=== PATIENT | male | born 1955 | race Caucasian/White ===

== ENCOUNTER 2020-03-11 11:30 | Outpatient (REF) | payer OTHER, SELFPAY ==
[2020-03-11 13:44] LABS: MANUAL DIFF FLAG NO
[2020-03-11 13:47] LABS: Basophils Percent Auto 0.4 % (0-2); Eosinophils Absolute Auto 0.1 X10*3/uL (0.0-0.4); Eosinophils Percent Auto 1.8 % (0-4); Imm Gran Abs Auto 0.01 X10*3/uL (0.00-0.03); Imm Gran Pct Auto 0.2 % (0.0-0.4); Lymphocytes Absolute Auto 1.2 X10*3/uL (1.2-4.9); Mean Corpuscular HGB Conc 32.6 g/dl (31.0-36.0); Mean Corpuscular Hemoglobin 30.7 pg (27.0-33.0); Mean Corpuscular Volume 94.3 fL (80-98); Mean Platelet Volume 9.8 fL (9.4-12.4); Monocytes Absolute Auto 0.6 X10*3/uL (0.1-1.2); Monocytes Percent Auto 10.2 % (2-11); Neutrophils Absolute Auto 3.6 X10*3/uL (2.0-8.3); Neutrophils Percent Auto 65.4 % (45-73); Platelet Count 223 X10*3/uL (160-400); Red Blood Count 4.56 X10*6/uL (4.60-5.80); Red Cell Distribution Width 14.1 % (11.0-16.0); White Blood Count 5.5 X10*3/uL (4.8-10.8)
[2020-03-11 14:07] LABS: Alanine Aminotransferase 25 U/L (0-40); Albumin Level 4.1 g/dL (3.5-5.0); Alkaline Phosphatase 60 U/L (39-117); Aspartate Amino Transferase 21 U/L (5-37); Bilirubin Direct 0.3 mg/dL (0.0-0.5); Bilirubin Total 0.6 mg/dL (0.0-1.0); Lipase 11 U/L (8-78); Total Protein 7.6 g/dL (6.5-8.0)
== END 2020-03-11 11:31 | disposition home or self-care (01) ==
LOC: HO.10HDL 11:30
PROVIDERS: PCP Internal Medicine; Visit Provider Internal Medicine
DX: I48.91 Unspecified atrial fibrillation (principal); R10.9 Unspecified abdominal pain; I10 Essential (primary) hypertension
CPT/HCPCS: 36415; 80076; 83690; 85025; 86140

== ENCOUNTER 2020-09-23 13:26 | Outpatient (REF) | payer OTHER, SELFPAY ==
[2020-09-23 16:32] LABS: MANUAL DIFF FLAG NO
[2020-09-23 16:44] LABS: Basophils Percent Auto 0.2 % (0-2); Eosinophils Absolute Auto 0.1 X10*3/uL (0.0-0.4); Eosinophils Percent Auto 1.3 % (0-4); Hematocrit 46.1 % (42-52); Imm Gran Abs Auto 0.02 X10*3/uL (0.00-0.03); Imm Gran Pct Auto 0.3 % (0.0-0.4); Lymphocytes Absolute Auto 1.5 X10*3/uL (1.2-4.9); Lymphocytes Percent Auto 24.7 % (20-40); Mean Corpuscular HGB Conc 32.5 g/dl (31.0-36.0); Mean Corpuscular Hemoglobin 30.5 pg (27.0-33.0); Mean Corpuscular Volume 93.9 fL (80-98); Mean Platelet Volume 9.9 fL (9.4-12.4); Monocytes Absolute Auto 0.5 X10*3/uL (0.1-1.2); Monocytes Percent Auto 7.7 % (2-11); Neutrophils Absolute Auto 4.1 X10*3/uL (2.0-8.3); Neutrophils Percent Auto 65.8 % (45-73); Platelet Count 217 X10*3/uL (160-400); Red Blood Count 4.91 X10*6/uL (4.60-5.80); Red Cell Distribution Width 13.6 % (11.0-16.0); White Blood Count 6.2 X10*3/uL (4.8-10.8)
[2020-09-23 17:06] LABS: Alanine Aminotransferase 27 U/L (0-40); Albumin Level 4.3 g/dL (3.5-5.0); Alkaline Phosphatase 60 U/L (39-117); Anion Gap 15 (12-20); Aspartate Amino Transferase 25 U/L (5-37); Bilirubin Total 0.7 mg/dL (0.0-1.0); Blood Urea Nitrogen 13 mg/dL (9-16); Calcium 9.5 mg/dL (8.4-10.2); Carbon Dioxide 24 mmol/L (22-29); Chloride 106 mmol/L (96-108); Cholesterol 161 mg/dL; Estimated Glomerular Filt Rate > 60; Glucose Random 101 mg/dL (60-115); HDL Cholesterol 38 mg/dL; LDL Cholesterol Calculated 91 mg/dl; Potassium 4.4 mmol/L (3.3-5.1); Sodium 141 mmol/L (135-145); Triglycerides 163 mg/dL
[2020-09-23 17:27] LABS: Prostate Specific Antigen 1.87 ng/mL (<0.05-4.0)
== END 2020-09-23 13:27 | disposition home or self-care (01) ==
LOC: HO.HMGCLDS 13:26
PROVIDERS: PCP Internal Medicine; Visit Provider Internal Medicine
DX: Z12.5 Encounter for screening for malignant neoplasm of prostate (principal); I48.91 Unspecified atrial fibrillation; E78.00 Pure hypercholesterolemia, unspecified; I10 Essential (primary) hypertension; K21.9 Gastro-esophageal reflux disease without esophagitis; R97.20 Elevated prostate specific antigen [PSA]
CPT/HCPCS: 36415; 80053; 80061; 84153; 85025

== ENCOUNTER 2021-01-06 11:30 | Outpatient (REF) | payer OTHER, SELFPAY ==
[2021-01-06 13:44] LABS: MANUAL DIFF FLAG NO
[2021-01-06 13:54] LABS: Basophils Percent Auto 0.2 % (0-2); Eosinophils Absolute Auto 0.1 X10*3/uL (0.0-0.4); Eosinophils Percent Auto 1.6 % (0-4); Hematocrit 44.8 % (42-52); Hemoglobin 14.7 g/dl (14.0-18.0); Imm Gran Abs Auto 0.01 X10*3/uL (0.00-0.03); Imm Gran Pct Auto 0.2 % (0.0-0.4); Lymphocytes Absolute Auto 1.2 X10*3/uL (1.2-4.9); Lymphocytes Percent Auto 21.6 % (20-40); Mean Corpuscular HGB Conc 32.8 g/dl (31.0-36.0); Mean Corpuscular Hemoglobin 31.7 pg (27.0-33.0); Mean Corpuscular Volume 96.8 fL (80-98); Mean Platelet Volume 9.8 fL (9.4-12.4); Monocytes Absolute Auto 0.5 X10*3/uL (0.1-1.2); Monocytes Percent Auto 9.1 % (2-11); Neutrophils Absolute Auto 3.8 X10*3/uL (2.0-8.3); Neutrophils Percent Auto 67.3 % (45-73); Platelet Count 235 X10*3/uL (160-400); Red Blood Count 4.63 X10*6/uL (4.60-5.80); Red Cell Distribution Width 13.3 % (11.0-16.0); White Blood Count 5.6 X10*3/uL (4.8-10.8)
[2021-01-06 14:02] LABS: INTERNATIONAL NORM RATIO 2.5 (0.9-1.1); Prothrombin Time 29.2 SEC (9.9-13.0)
[2021-01-06 14:09] LABS: Anion Gap 11 (12-20); Blood Urea Nitrogen 13 mg/dL (9-16); C Reactive Protein 0.26 mg/dL (< or = 0.50); Calcium 8.9 mg/dL (8.4-10.2); Carbon Dioxide 26 mmol/L (22-29); Chloride 107 mmol/L (96-108); Estimated Glomerular Filt Rate > 60; Glucose Random 100 mg/dL (60-115); Potassium 4.2 mmol/L (3.3-5.1); Sodium 140 mmol/L (135-145)
[2021-01-06 14:10] LABS: D Dimer < 200 NG/ML
[2021-01-06 14:27] LABS: B Type Natriuretic Peptide 213 pg/mL (<100)
== END 2021-01-06 11:31 | disposition home or self-care (01) ==
LOC: HO.10HDL 11:30
PROVIDERS: Visit Provider Internal Medicine
DX: I48.91 Unspecified atrial fibrillation (principal); R06.02 Shortness of breath; K21.9 Gastro-esophageal reflux disease without esophagitis
CPT/HCPCS: 36415; 80048; 83880; 85025; 85379; 85610; 86140

== ENCOUNTER → 2021-02-10 12:37 | Outpatient (REF) | payer OTHER, SELFPAY ==
--- NOTE | 2021-02-10 12:43 | CA_ITS ---
Transthoracic Echocardiogram Patient (Last, First, Middle): Tawanda Perez J Gender: Male Date of : 1955 Age: 65 Procedure Date: 02/10/2021 Procedure Type: Transthoracic Echocardiogram Location: OP Height: 182.88 cm Weight: 140.62 kg BSA: 2.57 m2 Heart Rate: bpm BP: 145 / 90 mmHg Architect Naval: VH/CP Referring MD: Corona Starr MD Symptoms: SHORTNESS OF BREATH Study Quality: Fair/ Contrast used ECG Rhythm: Atrial Fibrillation Conclusions: - The left ventricular systolic function is mildly decreased. The calculated ejection fraction is 50% by biplane method. - Moderately increased right ventricular cavity size. - The left atrium is severely dilated. - No obvious valvular pathology seen on this study. Findings Procedure Information Contrast agent, definity, is being given per protocol without apparent complications. Left Ventricle Moderately increased left ventricular cavity size. There is mildly increased left ventricular wall thickness. The left ventricular systolic function is mildly decreased. The calculated ejection fraction is 50% by biplane method. Regional wall motion abnormalities can not be excluded due to suboptimal endocardial definition. Diastolic function is indeterminate on the basis of available data. Right Ventricle Moderately increased right ventricular cavity size. There is normal right ventricular systolic function. Atria The left atrium is severely dilated. The right atrium is moderately dilated. Aortic Valve The aortic valve was not well visualized. There is no aortic valve stenosis. The mean gradient is 3 mmHg. There is no aortic valve regurgitation. Mitral Valve There is mild mitral annular calcification. There is trace mitral valve regurgitation. There is no mitral valve stenosis. Pulmonic Valve The pulmonic valve was not well visualized. Tricuspid Valve The tricuspid valve was not well visualized. There is trace tricuspid valve regurgitation. The pulmonary artery systolic pressure is normal. Great Vessels The asc aorta is normal in size. Venous The inferior vena cava is dilated and collapses greater than 50% with inspiration. Pericardium/Pleural There is no evidence of pericardial effusion. Prior Study Comparison No significant change compared to prior study dated: 05/21/2011. Recommendations, Care & Conclusions No obvious valvular pathology seen on this study. Measurements 2D Linear Measurements IVSd: 1.18 0.6-0.9/0.6-1.0 cm LVIDd: 6.70 3.9-5.3/4.2-5.9 cm LVIDd Index: 2.61 2.4-3.2/2.2-3.1 cm/m2 LVIDs: 5.27 2.0-3.6 cm LVPWd: 1.14 0.7-1.1 cm Ao Root: 3.60 2.1-3.5 cm LA Diam: 5.90 2.7-3.8/3.0-4.0 cm LAIDs Index: 2.30 1.5-2.3 cm/m2 LV Mass: 450.43 67-162/88-224 g LV Mass Index: 175.27 43-95/49-115 g/m2 LVOT Diam: 2.20 3.0+(-)1.3 cm 2D Systolic Function EF 4C: 53.30 >55% EF 2C: 47.40 >55% EF BiP: 49.70 >55% Mitral Valve MV Pk E: 1.06 MV Decel Time: 179.00 PHT: 52.00 MVA PHT: 4.23 Decel [place]: 5.94 Aortic Valve AoV Pk Wesley: 1.29 AoV Mn Wesley: 0.82 AoV VTI: 0.27 AoV Pk Grad: 7.00 Aov Mn Grad: 3.00 DAMIEN Cont.VTI: 1.91 LVOT LVOT Pk Wesley: 0.78 LVOT Mn Wesley: 0.49 LVOT VTI: 0.13 LVOT Pk Grad: 2.00 LVOT Mn Grad: 1.00 LVOT Diam: 2.20 LVOT Area: 3.80 Diastolic Function MV Pk E: 1.06 Right Ventricle TAPSE (mm): 22.00 TVS' Wesley: 12.00 Tricuspid Valve TR Pk Wesley: 2.54 TR Pk Grad: 26.00 Great Vessels Aorta Ao Root-2D: 3.60 2.0-3.7 cm Ao Asc: 3.70 2.1-3.4 cm Updated in Other Vendor System with Status of Final Raul Penaloza MD electronically signed on 02/11/2021 12:21:47 PM with status of Final
== END ==
LOC: HO.CARD 12:37
PROVIDERS: Visit Provider Internal Medicine
DX: R06.02 Shortness of breath (principal); I48.20 Chronic atrial fibrillation, unspecified
CPT/HCPCS: 93306; Q9957

== ENCOUNTER 2021-04-28 11:00 | Outpatient (REF) | payer OTHER, SELFPAY ==
[2021-04-28 13:49] LABS: MANUAL DIFF FLAG NO
[2021-04-28 13:56] LABS: Basophils Percent Auto 0.3 % (0-2); Eosinophils Absolute Auto 0.1 X10*3/uL (0.0-0.4); Eosinophils Percent Auto 2.3 % (0-4); Hemoglobin 15.1 g/dl (14.0-18.0); Imm Gran Abs Auto 0.01 X10*3/uL (0.00-0.03); Imm Gran Pct Auto 0.2 % (0.0-0.4); Lymphocytes Absolute Auto 1.3 X10*3/uL (1.2-4.9); Mean Corpuscular HGB Conc 32.8 g/dl (31.0-36.0); Mean Corpuscular Hemoglobin 31.3 pg (27.0-33.0); Mean Corpuscular Volume 95.2 fL (80.0-98.0); Mean Platelet Volume 9.8 fL (9.4-12.4); Monocytes Absolute Auto 0.5 X10*3/uL (0.1-1.2); Monocytes Percent Auto 8.5 % (2-11); Neutrophils Absolute Auto 4.2 x10*3/uL (2.0-8.3); Neutrophils Percent Auto 67.7 % (45-73); Platelet Count 230 X10*3/uL (160-400); Red Blood Count 4.83 X10*6/uL (4.60-5.80); Red Cell Distribution Width 13.2 % (11.0-16.0); White Blood Count 6.1 X10*3/uL (4.8-10.8)
[2021-04-28 13:59] LABS: INTERNATIONAL NORM RATIO 2.7 (0.9-1.1); Prothrombin Time 30.8 SEC (9.9-13.0)
[2021-04-28 14:10] LABS: Alanine Aminotransferase 28 U/L (0-40); Albumin Level 3.9 g/dL (3.5-5.0); Alkaline Phosphatase 59 U/L (39-117); Anion Gap 11 (12-20); Aspartate Amino Transferase 24 U/L (5-37); Bilirubin Total 0.7 mg/dL (0.0-1.0); Blood Urea Nitrogen 14 mg/dL (9-16); Calcium 9.3 mg/dL (8.4-10.2); Carbon Dioxide 27 mmol/L (22-29); Chloride 105 mmol/L (96-108); Estimated Glomerular Filt Rate > 60; Glucose Random 107 mg/dL (60-115); Potassium 4.1 mmol/L (3.3-5.1); Sodium 139 mmol/L (135-145); Total Protein 7.6 g/dL (6.5-8.0)
== END 2021-04-28 11:01 | disposition home or self-care (01) ==
LOC: HO.10HDL 11:00
PROVIDERS: Visit Provider Internal Medicine
DX: I48.91 Unspecified atrial fibrillation (principal); I10 Essential (primary) hypertension; K21.9 Gastro-esophageal reflux disease without esophagitis; M19.90 Unspecified osteoarthritis, unspecified site
CPT/HCPCS: 36415; 80053; 85025; 85610

== ENCOUNTER 2021-07-28 10:49 | Outpatient (REF) | payer OTHER, SELFPAY ==
[2021-07-28 11:24] LABS: MANUAL DIFF FLAG NO
[2021-07-28 11:56] LABS: Basophils Percent Auto 0.5 % (0-2); Eosinophils Absolute Auto 0.1 X10*3/uL (0.0-0.4); Eosinophils Percent Auto 1.3 % (0-4); Hematocrit 44.6 % (42.0-52.0); Hemoglobin 14.7 g/dl (14.0-18.0); Imm Gran Abs Auto 0.06 X10*3/uL (0.00-0.03); Imm Gran Pct Auto 1.1 % (0.0-0.4); Lymphocytes Absolute Auto 1.1 X10*3/uL (1.2-4.9); Mean Corpuscular Hemoglobin 31.4 pg (27.0-33.0); Mean Corpuscular Volume 95.3 fL (80.0-98.0); Mean Platelet Volume 9.3 fL (9.4-12.4); Monocytes Absolute Auto 0.5 X10*3/uL (0.1-1.2); Monocytes Percent Auto 9.6 % (2-11); Neutrophils Absolute Auto 3.8 x10*3/uL (2.0-8.3); Neutrophils Percent Auto 68.5 % (45-73); Platelet Count 197 X10*3/uL (160-400); Red Blood Count 4.68 X10*6/uL (4.60-5.80); Red Cell Distribution Width 13.7 % (11.0-16.0); White Blood Count 5.5 X10*3/uL (4.8-10.8)
[2021-07-28 12:10] LABS: Rheumatoid Factor < 15.0 IU/mL (<15.0)
[2021-07-28 12:12] LABS: Alanine Aminotransferase 26 U/L (0-40); Alkaline Phosphatase 64 U/L (39-117); Anion Gap 10 (12-20); Aspartate Amino Transferase 20 U/L (5-37); Bilirubin Total 0.7 mg/dL (0.0-1.0); Blood Urea Nitrogen 21 mg/dL (9-16); C Reactive Protein 0.32 mg/dL (< or = 0.50); Calcium 9.6 mg/dL (8.4-10.2); Carbon Dioxide 28 mmol/L (22-29); Chloride 106 mmol/L (96-108); Estimated Glomerular Filt Rate > 60; Glucose Random 86 mg/dL (60-115); Potassium 4.4 mmol/L (3.3-5.1); Sodium 140 mmol/L (135-145); Total Protein 7.6 g/dL (6.5-8.0)
[2021-07-30 01:16] LABS: Lyme Abs Screen <0.90 index
[2021-07-30 11:30] LABS: Anti Nuclear Antibody Screen NEGATIVE (NEGATIVE)
== END 2021-07-28 10:50 | disposition home or self-care (01) ==
LOC: HO.LAB 10:49
PROVIDERS: PCP Internal Medicine; Visit Provider Internal Medicine
DX: I48.91 Unspecified atrial fibrillation (principal); I10 Essential (primary) hypertension; M25.50 Pain in unspecified joint
CPT/HCPCS: 36415; 80053; 85025; 86038; 86039; 86140; 86431; 86617; 86618

== ENCOUNTER 2021-11-05 10:50 | Outpatient (REF) | payer OTHER, SELFPAY ==
[2021-11-05 13:49] LABS: MANUAL DIFF FLAG NO
[2021-11-05 13:53] LABS: Basophils Percent Auto 0.4 % (0-2); Eosinophils Absolute Auto 0.1 X10*3/uL (0.0-0.4); Eosinophils Percent Auto 1.8 % (0-4); Hematocrit 44.7 % (42.0-52.0); Hemoglobin 15.1 g/dl (14.0-18.0); Imm Gran Abs Auto 0.01 X10*3/uL (0.00-0.03); Imm Gran Pct Auto 0.1 % (0.0-0.4); Lymphocytes Absolute Auto 1.4 X10*3/uL (1.2-4.9); Lymphocytes Percent Auto 19.3 % (20-40); Mean Corpuscular HGB Conc 33.8 g/dl (31.0-36.0); Mean Corpuscular Hemoglobin 31.9 pg (27.0-33.0); Mean Corpuscular Volume 94.5 fL (80.0-98.0); Mean Platelet Volume 9.5 fL (9.4-12.4); Monocytes Absolute Auto 0.6 X10*3/uL (0.1-1.2); Monocytes Percent Auto 8.3 % (2-11); Neutrophils Percent Auto 70.1 % (45-73); Platelet Count 211 X10*3/uL (160-400); Red Blood Count 4.73 X10*6/uL (4.60-5.80); Red Cell Distribution Width 13.3 % (11.0-16.0); White Blood Count 7.2 X10*3/uL (4.8-10.8)
[2021-11-05 13:57] LABS: INTERNATIONAL NORM RATIO 2.4 (0.9-1.1); Prothrombin Time 28.5 SEC (10.0-13.1)
[2021-11-05 14:09] LABS: Alanine Aminotransferase 34 U/L (0-40); Albumin Level 4.2 g/dL (3.5-5.0); Alkaline Phosphatase 57 U/L (39-117); Anion Gap 14 (12-20); Aspartate Amino Transferase 27 U/L (5-37); Bilirubin Total 0.9 mg/dL (0.0-1.0); Blood Urea Nitrogen 16 mg/dL (9-16); Calcium 9.1 mg/dL (8.4-10.2); Carbon Dioxide 25 mmol/L (22-29); Chloride 104 mmol/L (96-108); Cholesterol 161 mg/dL; Estimated Glomerular Filt Rate > 60; Glucose Fasting 97 mg/dL (60-99); HDL Cholesterol 38 mg/dL; LDL Cholesterol Calculated 97 mg/dl; Lipase 12 U/L (8-78); Potassium 4.2 mmol/L (3.3-5.1); Sodium 139 mmol/L (135-145); Total Protein 7.9 g/dL (6.5-8.0); Triglycerides 132 mg/dL
[2021-11-05 14:23] LABS: Prostate Specific Antigen Scr 1.03 ng/mL (<0.05-4.0)
== END 2021-11-05 10:51 | disposition home or self-care (01) ==
LOC: HO.10HDL 10:50
PROVIDERS: Visit Provider Internal Medicine
DX: Z12.5 Encounter for screening for malignant neoplasm of prostate (principal); I48.91 Unspecified atrial fibrillation; I10 Essential (primary) hypertension; K21.9 Gastro-esophageal reflux disease without esophagitis; E78.00 Pure hypercholesterolemia, unspecified; R35.1 Nocturia; M19.90 Unspecified osteoarthritis, unspecified site
CPT/HCPCS: 36415; 80053; 80061; 83690; 84153; 85025; 85610

== ENCOUNTER 2021-12-07 11:01 | Outpatient (REF) | payer OTHER, SELFPAY ==
--- NOTE | ~2021-12-07 | CT_ITS ---
EXAMINATION: CT HEAD WITHOUT CONTRAST CLINICAL INFORMATION: Unsteady gait. COMPARISON: None. TECHNIQUE: Contiguous axial imaging was performed from the skull base to vertex without intravenous administration of contrast. This CT examination was performed using dose optimization techniques as appropriate, variously including the following: *Automated exposure control *Adjustment of mA and/or kV according to patient size (this includes techniques or standardized protocols for targeted exams where dose is matched to indication/reason for exam; i.e. extremities or head) *Use of iterative reconstruction technique DLP: 1092 mGy-cm. FINDINGS: There is no evidence of acute intracranial hemorrhage or territorial infarction. No abnormal mass effect or midline shift is seen. Castano to white matter differentiation is well preserved. No extra-axial fluid collections are identified. The ventricles are normal in size. Mild patchy areas of low-density change noted in the cerebral white matter which may be due to chronic microangiopathy. The osseous structures and soft tissues are normal. The mastoid air cells are well aerated. There are retention cysts in the maxillary sinus cavities with scattered retention cysts versus polyps in the sphenoethmoid sinuses. Associated mild mucosal thickening also evident in the paranasal sinuses. There are severe degenerative changes at the odontoid tip with sclerosis and cystic change. Hypertrophic bone formation and ossific spurring also noted along the anterior arch of C1 with narrowing of the atlantodental interval. CT/CT head/brain wo IV con IMPRESSION: No acute intracranial hemorrhage or territorial infarction. Mild chronic white matter microangiopathy. Sinonasal mucosal thickening with small retention cysts and polyps.
== END 2021-12-07 11:02 | disposition home or self-care (01) ==
LOC: HO.CT 11:01
PROVIDERS: PCP Internal Medicine; Visit Provider Internal Medicine
DX: R26.9 Unspecified abnormalities of gait and mobility (principal); I48.20 Chronic atrial fibrillation, unspecified
CPT/HCPCS: 70450

== ENCOUNTER 2022-05-25 08:31 | Day surgery (SDC) | payer OTHER, SELFPAY ==
--- NOTE | 2022-05-24 10:37 | HO.ANESPROP2 ---
Documented by User: Reyna Peña NP 05/24/22 10:38 HPI - Anesthesia Eval Consult details Narrative: 66yo M for Upper Endoscopy and Colonoscopy Coumadin for afib. Lovenox bridge [facility] Past Medical History Medical History (Updated 05/24/22 @ 08:47 by Elinor Roberts, RN) Arrhythmia Back pain History of hyperlipidemia HTN (hypertension) Hx of atrial fibrillation without current medication Hx of osteoarthritis Left hip pain Nocturia Surgical History Surgical History (Updated 05/24/22 @ 08:47 by Elinor Roberts RN) History of hip surgery Hx of colonoscopy Hx of laminectomy Social History Social History Patient Tobacco Use Status: Former Tobacco user Cigarette Packs Per Day: 1 Cigarettes Per Day: 20.0 Years Smoked: 34 Substance Use Frequency: Weekly Are you DNR?: No Advance Directives: No Advance Directives Information Provided: Yes Meds Allergies Allergy/AdvReac Type Severity Reaction Status Date / Time aspirin [ASPIRIN] AdvReac Unknown PT STATES Unverified 11/29/19 14:36 HE CAN'T TAKE BECAUSE HE IS ON COUMADIN lisinopril [LISINOPRIL] AdvReac Unknown COUGH Unverified 11/29/19 14:36 NSAIDS (Non-Steroidal AdvReac Unknown PT STATES Unverified 11/29/19 14:36 Anti-Inflamma HE CAN'T [NSAIDS (NON-STEROIDAL TAKE ANTI-INFLAMMA] BECAUSE HE IS ON COUMADIN can't take ASA or NSAIDS Allergy Unknown Uncoded 01/12/12 00:00 sensitive to lipitor Allergy Unknown Uncoded 01/12/12 00:00 sensitive to lisinopril Allergy Unknown Uncoded 01/12/12 00:00 From LIPITOR AdvReac Unknown ELEVATED Uncoded 11/29/19 14:36 LFT'S, MUSCLE PAIN Home Medications Medication Instructions Recorded Confirmed Last Taken Type clonidine HCl 0.1 mg tablet 2 tab PO BID 05/24/22 05/24/22 Unknown History enoxaparin 150 mg/mL subcutaneous mg subcut 05/24/22 Unknown History syringe irbesartan 300 mg tablet 1 tab PO DAILY 05/24/22 05/24/22 Unknown History pantoprazole 40 mg tablet,delayed 1 tab PO BID 05/24/22 05/24/22 Unknown History release pravastatin 80 mg tablet 1 tab PO DAILY 05/24/22 05/24/22 Unknown History warfarin 5 mg tablet tab PO 05/24/22 Unknown History Exam Exam Date and Time: May 24, 2022 1037 Pertinent Lab Results Pertinent Lab Results: Laboratory Tests 11/05/21 11/05/21 11:00 11:00 WBC 7.2 Hgb 15.1 Hct 44.7 Plt Count 211 Sodium 139 Potassium 4.2 Chloride 104 Carbon Dioxide 25 BUN 16 Creatinine 1.04 Narrative Narrative: ECHO 2020 Conclusions: - The left ventricular systolic function is mildly decreased.? ? The calculated ejection fraction is 50% by biplane method. ? ? ? - Moderately increased right ventricular cavity size.? - The left atrium is severely dilated. ? - No obvious valvular pathology seen on this study.?? Assessment and Plan Assessment Anesthesia Assessment: Chart Reviewed Documented by User: Himanshu Mckeon MD 05/25/22 11:31 PMF Past Medical History Medical History (Updated 05/24/22 @ 08:47 by Elinor Roberts RN) Arrhythmia Back pain History of hyperlipidemia HTN (hypertension) Hx of atrial fibrillation without current medication Hx of osteoarthritis Left hip pain Nocturia Family History Family history of problems with anesthesia: No Surgical History Surgical History (Updated 05/24/22 @ 08:47 by Elinor Roberts RN) History of hip surgery Hx of colonoscopy Hx of laminectomy History of Problems with Anesthesia: No Social History Social History Patient Tobacco Use Status: Former Tobacco user Cigarette Packs Per Day: 1 Cigarettes Per Day: 20.0 Years Smoked: 34 Substance Use Frequency: Weekly Are you DNR?: No Advance Directives: No Advance Directives Information Provided: Yes Meds Allergies Allergy/AdvReac Type Severity Reaction Status Date / Time aspirin [ASPIRIN] AdvReac Unknown PT STATES Unverified 11/29/19 14:36 HE CAN'T TAKE BECAUSE HE IS ON COUMADIN lisinopril [LISINOPRIL] AdvReac Unknown COUGH Unverified 11/29/19 14:36 NSAIDS (Non-Steroidal AdvReac Unknown PT STATES Unverified 11/29/19 14:36 Anti-Inflamma HE CAN'T [NSAIDS (NON-STEROIDAL TAKE ANTI-INFLAMMA] BECAUSE HE IS ON COUMADIN can't take ASA or NSAIDS Allergy Unknown Uncoded 01/12/12 00:00 sensitive to lipitor Allergy Unknown Uncoded 01/12/12 00:00 sensitive to lisinopril Allergy Unknown Uncoded 01/12/12 00:00 From LIPITOR AdvReac Unknown ELEVATED Uncoded 11/29/19 14:36 LFT'S, MUSCLE PAIN Home Medications Medication Instructions Recorded Confirmed Last Taken Type clonidine HCl 0.1 mg tablet 2 tab PO BID 05/24/22 05/24/22 Unknown History enoxaparin 150 mg/mL subcutaneous mg subcut 05/24/22 Unknown History syringe irbesartan 300 mg tablet 1 tab PO DAILY 05/24/22 05/24/22 Unknown History pantoprazole 40 mg tablet,delayed 1 tab PO BID 05/24/22 05/24/22 Unknown History release pravastatin 80 mg tablet 1 tab PO DAILY 05/24/22 05/24/22 Unknown History warfarin 5 mg tablet tab PO 05/24/22 Unknown History Exam Airway Mallampati Class: II TM Dist: >3cm Neck ROM: Limited Loose/Missing/Broken Teeth: No Heart: ok Lungs: ok Assessment and Plan Assessment Anesthesia Assessment: Anesthesia Plan Discussed Final Anesthetic Review Family History of Problems with Anesthesia: No History of Problems with Anesthesia: No NPO: Yes ASA Class: IV Final Preanesthetic Review: No Changes in Pt Med Stat, Meds/Allgs Chart Reviewed, Consent Obtained/Reviewed and Anes Risks/Benef Reviewed Patient Risk: High Procedure Risk: Intermediate Anesthetic Plan Anesthetic Plan: MAC: and Agree w/ Assess. and Plan Disposition: Standard PACU
[2022-05-25 09:39] LABS: INTERNATIONAL NORM RATIO 1.2 (0.9-1.1); Prothrombin Time 13.5 SEC (10.0-13.1)
[2022-05-25 09:40] VITALS: BMI 42.3
[2022-05-25 09:45] VITALS: BP 147/99; PULSE 96; RESP 18; TEMP 36.6; O2SAT 97
[2022-05-25] MEDS: Lactated Ringers 1,000 ML 100 ML IVCONT (09:52)
--- NOTE | 2022-05-25 10:38 | P.HPSUR_ITS ---
Pre-Procedural Eval Section A Date of Service: 05/25/22 Section B Chief Complaint: screening,reflux Details of Present Illness: see H&P no changes Relevant Family History (Specify if Yes): No Relevant Social History: None Present Medications: see Short Stay [facility] assessment Medical History: No relevant PMH History of Previous Operations: No relevant previous surgery Allergies: Allergies Allergy/AdvReac Type Severity Reaction Status Date / Time aspirin [ASPIRIN] AdvReac Unknown PT STATES Unverified 11/29/19 14:36 HE CAN'T TAKE BECAUSE HE IS ON COUMADIN lisinopril [LISINOPRIL] AdvReac Unknown COUGH Unverified 11/29/19 14:36 NSAIDS (Non-Steroidal AdvReac Unknown PT STATES Unverified 11/29/19 14:36 Anti-Inflamma HE CAN'T [NSAIDS (NON-STEROIDAL TAKE ANTI-INFLAMMA] BECAUSE HE IS ON COUMADIN can't take ASA or NSAIDS Allergy Unknown Uncoded 01/12/12 00:00 sensitive to lipitor Allergy Unknown Uncoded 01/12/12 00:00 sensitive to lisinopril Allergy Unknown Uncoded 01/12/12 00:00 From LIPITOR AdvReac Unknown ELEVATED Uncoded 11/29/19 14:36 LFT'S, MUSCLE PAIN Review of Systems Sugical H&P ROS: Negative: Constitution, Cardiovascular, Respiratory, Neurological, Psychiatric, Hem-Onc, Allergic/Immunologic, Gastrointestinal, Genitourinary, Musculoskeletal, Integumentary, Endocrine and Eyes/Ears/Nose/Throat Exam Surgical H&P Exam: Normal: HEENT, Normal: Heart, Normal: Lungs, Normal: Extremities, Normal: Abdomen, Normal: Skin and Normal: Neurological Plan I have reviewed the history and physical and performed a pertinent physical examination on my patient. No changes have occurred unless specified. Time Spent With Patient Time: Total time managing care of this patient today ____ minutes.
--- NOTE | 2022-05-25 11:29 | P.BOP_ITS ---
Brief Operative Note Date of Service: 05/25/22 Pre-op diagnosis: gerd screening Post-op diagnosis: same Procedure: egd colonoscopy Surgeon: Miguelito Banuelos Anesthesia: MAC Was an Mental Health Social Worker used for this Procedure?: No Estimated blood loss (mL): 5 Pathology: other Condition: stable Disposition: PACU
[2022-05-25 11:32] VITALS: BP 131/79; PULSE 93; RESP 24; TEMP 37.6; O2SAT 92
[2022-05-25 11:47] VITALS: BP 114/75; PULSE 83; RESP 22; TEMP 37.3; O2SAT 95
--- NOTE | 2022-05-25 22:08 | OP_ITS ---
SURGEON: Miguelito Banuelos MD INDICATIONS: 1. Gastroesophageal reflux disease. 2. Colon cancer screening. PREOPERATIVE DIAGNOSIS: POSTOPERATIVE DIAGNOSIS: PROCEDURE PERFORMED: Upper endoscopy with biopsy, colonoscopy to the terminal ileum with biopsy. ESTIMATED BLOOD LOSS: COMPLICATIONS: ANESTHESIA: Monitored anesthesia care. ASSISTANTS: SPECIMENS: PROCEDURE DESCRIPTION: Date: 05/25/22. A history and physical performed. The risks and benefits of procedure were explained to the patient. Informed consent was obtained. The patient was placed in the left lateral decubitus position. The Olympus video gastroscope was introduced into the esophagus, stomach, and duodenum. Examination was performed. The scope was removed. He was repositioned for colonoscopy. A digital rectal exam was performed and was found to be normal. The Olympus pediatric videocolonoscope was introduced into the rectum and advanced to the cecum without difficulty. The cecum was identified by transillumination, palpation, and identification of ileocecal valve. Examination was performed. The scope was removed. He tolerated both procedures well, was returned to recovery area in stable condition. FINDINGS: Upper endoscopy: Esophagus: The esophagus showed an irregular EG junction. There was no esophagitis. This was biopsied. Stomach: The stomach showed no evidence of masses or ulcers. Antral biopsies were obtained. There were multiple benign-appearing polyps in the body and fundus consistent with fundic gland polyps. Two of these were biopsied. Duodenum: The bulb and 2nd portion were normal. Colonoscopy: The terminal ileum was examined briefly and appeared normal. The visualized colonic mucosa was normal. The quality of the prep was fair with some retained formed stool in the sigmoid and some liquid stool coating the mucosa in the right colon and transverse colon. This was washed and suctioned. There was extensive diverticulosis of the sigmoid with scattered diverticulitis throughout the remainder of the colon. A single polyp in the rectum measuring less than 5 mm was removed with biopsy forceps. Retroflexed examination showed small internal hemorrhoids. IMPRESSION: 1. Gastroesophageal reflux disease. 2. Gastric polyps. 3. Colon polyp. RECOMMENDATIONS: Follow up biopsy results. MD MICHELINE Nielsen/RODRI / [id number]
== END 2022-05-25 12:27 | disposition home or self-care (01) ==
PROVIDERS: Nurse Practitioner; PCP Internal Medicine; Visit Provider Internal Medicine Gastroenterology
PROC: (CPT 45380; principal; 2022-05-25 10:20)
DX: Z12.11 Encounter for screening for malignant neoplasm of colon (principal); Z86.010 Personal history of colon polyps; D12.8 Benign neoplasm of rectum; K57.30 Diverticulosis of large intestine without perforation or abscess without bleeding; K64.8 Other hemorrhoids; K21.9 Gastro-esophageal reflux disease without esophagitis; K31.7 Polyp of stomach and duodenum; I10 Essential (primary) hypertension; I48.91 Unspecified atrial fibrillation; E78.00 Pure hypercholesterolemia, unspecified; Z68.42 Body mass index [BMI] 45.0-49.9, adult; R63.5 Abnormal weight gain; R35.1 Nocturia; Z79.01 Long term (current) use of anticoagulants; Z79.899 Other long term (current) drug therapy; Z88.8 Allergy status to other drugs, medicaments and biological substances
CPT/HCPCS: 45380; 43239; 36415; 85610; 88305; 88342; J3010

== ENCOUNTER 2022-07-16 11:13 | Outpatient (REF) | payer MEDICARE, SELFPAY ==
--- NOTE | ~2022-07-16 | XR_ITS ---
EXAMINATION: XR CHEST CLINICAL INFORMATION: Cough COMPARISON: Previous chest x-ray most recent January 2019 TECHNIQUE: 2 views of the chest were obtained. FINDINGS: The cardiac silhouette is enlarged but stable. Hilar and mediastinal contours are unremarkable. There is subsegmental atelectasis at the left lung base. The lungs are otherwise clear. No pleural effusion or pneumothorax. Degenerative changes of the spine. XR/XR chest 2V IMPRESSION: Stable enlargement of the cardiac silhouette. Subsegmental atelectasis at the left lung base.
[2022-07-16 11:25] LABS: MANUAL DIFF FLAG NO
[2022-07-16 11:54] LABS: Basophils Percent Auto 0.5 % (0-2); Eosinophils Absolute Auto 0.2 X10*3/uL (0.0-0.4); Eosinophils Percent Auto 2.1 % (0-4); Hematocrit 44.1 % (42.0-52.0); Hemoglobin 14.5 g/dl (14.0-18.0); Imm Gran Abs Auto 0.02 X10*3/uL (0.00-0.03); Imm Gran Pct Auto 0.3 % (0.0-0.4); Lymphocytes Absolute Auto 1.5 X10*3/uL (1.2-4.9); Mean Corpuscular HGB Conc 32.9 g/dl (31.0-36.0); Mean Corpuscular Hemoglobin 31.8 pg (27.0-33.0); Mean Corpuscular Volume 96.7 fL (80.0-98.0); Mean Platelet Volume 9.1 fL (9.4-12.4); Monocytes Absolute Auto 0.7 X10*3/uL (0.1-1.2); Monocytes Percent Auto 8.6 % (2-11); Neutrophils Absolute Auto 5.2 x10*3/uL (2.0-8.3); Neutrophils Percent Auto 68.5 % (45-73); Platelet Count 235 X10*3/uL (160-400); Red Blood Count 4.56 X10*6/uL (4.60-5.80); Red Cell Distribution Width 13.6 % (11.0-16.0); White Blood Count 7.7 X10*3/uL (4.8-10.8)
[2022-07-16 12:19] LABS: Influenza A PCR NEGATIVE (Negative); Influenza B PCR NEGATIVE (Negative); Resp Syncy Virus RNA Qual PCR NEGATIVE (Negative); SARS COV2 PCR INHOUSE NEGATIVE (Negative)
[2022-07-16 12:20] LABS: B Type Natriuretic Peptide 138 pg/mL (<100)
[2022-07-16 12:47] LABS: Alanine Aminotransferase 35 U/L (0-40); Albumin Level 4.1 g/dL (3.5-5.0); Alkaline Phosphatase 59 U/L (39-117); Anion Gap 15 (12-20); Aspartate Amino Transferase 28 U/L (5-37); Bilirubin Total 0.7 mg/dL (0.0-1.0); Blood Urea Nitrogen 18 mg/dL (9-16); Calcium 9.2 mg/dL (8.4-10.2); Carbon Dioxide 25 mmol/L (22-29); Chloride 106 mmol/L (96-108); Estimated Glomerular Filt Rate 55; Glucose Random 101 mg/dL (60-115); Potassium 5.2 mmol/L (3.3-5.1); Sodium 141 mmol/L (135-145); Total Protein 7.6 g/dL (6.5-8.0)
== END 2022-07-16 11:14 | disposition home or self-care (01) ==
LOC: HO.LAB 11:13
PROVIDERS: PCP Internal Medicine; Visit Provider Internal Medicine
DX: R05.9 Cough, unspecified (principal); R09.89 Other specified symptoms and signs involving the circulatory and respiratory systems; Z20.822 Contact with and (suspected) exposure to COVID-19
CPT/HCPCS: 0241U; 36415; 71046; 80053; 83880; 85025

== ENCOUNTER 2022-09-20 09:12 | Outpatient (AMB) | payer MEDICARE, SELFPAY ==
--- NOTE | 2022-09-20 09:14 | MHC.OFFVIS ---
Intake Vital Signs 09/20/22 09:22 Height 6 ft Weight 355 lb BMI 48.1 BP 143/77 H Blood Pressure Location Rt brachial Position Sitting Pulse 93 Intake Visit Reasons: Hemorrhoids Allergies aspirin [ASPIRIN] Adverse Reaction (Unknown, Unverified 09/20/22 09:24) PT STATES HE CAN'T TAKE BECAUSE HE IS ON COUMADIN lisinopril [LISINOPRIL] Adverse Reaction (Unknown, Unverified 09/20/22 09:24) COUGH NSAIDS (Non-Steroidal Anti-Inflamma [NSAIDS (NON-STEROIDAL ANTI-INFLAMMA] Adverse Reaction (Unknown, Unverified 09/20/22 09:24) PT STATES HE CAN'T TAKE BECAUSE HE IS ON COUMADIN can't take ASA or NSAIDS Allergy (Unknown, Uncoded 09/20/22:) Unknown sensitive to lipitor Allergy (Unknown, Uncoded 09/20/22:24) Unknown sensitive to lisinopril Allergy (Unknown, Uncoded 09/20/22:) Unknown From LIPITOR Adverse Reaction (Unknown, Uncoded 09/20/22:) ELEVATED LFT'S, MUSCLE PAIN Medication List - Last Reconciled 09/20/[address] MD clonidine HCl 2 tabs PO BID enoxaparin mg subcut irbesartan 1 tab PO DAILY pantoprazole 1 tab PO BID pravastatin 1 tab PO DAILY warfarin tabs PO HPI Hemorrhoids HPI Details 67-year-old male referred for bleeding hemorrhoids. He says that he has known hemorrhoids for so most of his life. He says that he has occasional passage of bright blood per rectum with this. However, for the past few months, he has noticed this seems to be little more frequent. He says that he notices on the toilet bowl as well as on wiping. He does state that this does not happen every day. He says that this may not happen for several days but occasionally this may be heavy. He denies any pain or swelling. He says he does get constipated occasionally He does have a history of atrial fibrillation and is currently on anticoagulation with Coumadin. He says that he gets short of breath surgically because of his atrial fibrillation. [facility] Medical History (Updated 09/20/22 @ 10:[address] MD) Arrhythmia Back pain Bleeding hemorrhoids History of hyperlipidemia HTN (hypertension) Hx of atrial fibrillation without current medication Hx of osteoarthritis Left hip pain Nocturia Surgical History History of hip surgery Hx of colonoscopy Hx of laminectomy Social History Patient Tobacco Use Status: Former Tobacco user Cigarette Packs Per Day: 1 Cigarettes Per Day: 20.0 Years Smoked: 34 Review of Systems Const Denies chills and Denies fever(s) Card Denies chest pain, Denies dyspnea and Reports dyspnea on exertion Resp Denies cough, Denies dyspnea and Reports dyspnea on exertion GI Reports hematochezia and Denies change in bowel habits Denies hematuria and Denies difficulty urinating Musc Denies back pain and Denies limited range of motion Neuro Denies focal weakness and Denies convulsions Psych Denies depression and Denies mood swings Physical Exam Vital Signs: Last Vital Signs Pulse 93 09/20/22 09:22 BP 143/77 H 09/20/22 09:22 BMI result Body Mass Index 48.1 Const Other: Appears morbidly obese General: comfortable and no acute distress Orientation/consciousness: patient oriented x3 Neck Neck: Yes no lymphadenopathy Resp Auscultation: clear to auscultation bilaterally Cardio Other: Irregular rhythm GI Other: Rectal exam shows moderate size external hemorrhoids, left and the right no bleeding at this time, anoscopy as described Palpation (GI): Soft to palpation, nontender and no guarding Neuro General: patient oriented x3 Office Procedures Anoscopy He was placed in vna-knife position. The anoscope was gently inserted. A full examination of the anal canal was done. There was note of moderate-sized hemorrhoidal columns, mix of internal external on both the left and right side, there was no active bleeding, no thrombosis. There were no fissures or induration on digital exam [id number] Assessment & Plan Assessment & Plan (1) Bleeding hemorrhoids: Code(s): K64.9 - Unspecified hemorrhoids Plan: He has multiple hemorrhoidal columns, mix of internal external with periodic bleeding. He is on anticoagulation for his fibrillation so this is contributory to the bleeding. I did explain to him the option of proceeding with surgery. I discussed with him the risks including but not limited to bleeding, infections, poor healing, postop pain, perioperative risks with the anesthesia including [place], as well as the benefits and alternatives He would like to hold off on surgery at this point especially as he does have multiple cardiac issues. I will send him for a steroid suppositories for now and I will see him again in the office in about a month to see how is doing. He was advised on avoiding straining and constipation. I did explain to him the benefit of fiber supplementation. Coding Level of Care Code New Pt Level 3 (12856) Diagnoses Bleeding hemorrhoids K64.9 CPT Codes Details - CPT: 63721-[id number] ([id number])
[2022-09-20 09:22] VITALS: BP 143/77; PULSE 93; BMI 48.1
== END 2022-09-20 10:12 | disposition home or self-care (01) ==
PROVIDERS: PCP Internal Medicine; Referring Provider Internal Medicine; Visit Provider Surgery
DX: K64.9 Unspecified hemorrhoids (principal)
CPT/HCPCS: 46600; 99203

== ENCOUNTER → 2022-09-20 09:12 | Outpatient (BNVA) | payer MEDICARE, SELFPAY | PROVIDERS: PCP Internal Medicine; Referring Provider Internal Medicine; Visit Provider Surgery | DX: K64.9 Unspecified hemorrhoids (principal); I48.91 Unspecified atrial fibrillation; Z79.01 Long term (current) use of anticoagulants | CPT/HCPCS: 46600; 99202 ==

== ENCOUNTER → 2022-09-23 14:49 | Outpatient (REF) | payer MEDICARE, SELFPAY ==
--- NOTE | 2022-09-23 14:51 | CA_ITS ---
Transthoracic Echocardiogram Patient (Last, First, Middle): Tawanda Perez J Gender: Male Date of : 1955 Age: 67 Procedure Date: 09/23/2022 Procedure Type: Transthoracic Echocardiogram Location: OP Height: 182.88 cm Weight: 147.42 kg BSA: 2.62 m2 Heart Rate: bpm BP: 150 / 98 mmHg Regional Safety Manager: JOY Referring MD: Corona Starr MD Projector Operator: Cipriano Nicole MD Symptoms: I48.91 UNSPEC AFIB Study Quality: Fair, contrast ECG Rhythm: Atrial Fibrillation Conclusions: - 1. Low normal LV ejection fraction with LVEF of 50-55% 2. Severely dilated left atrium 3. Cardiac valvular Dopplers within normal limits 4. Mildly dilated ascending aorta at 3.9 cm 5. Normal RV systolic pressure 6. No pericardial effusion Findings Procedure Information Contrast agent, definity, is being given per protocol without apparent complications. Left Ventricle Moderately increased left ventricular cavity size. There is normal left ventricular wall thickness. The left ventricular systolic function is low normal. The visually estimated ejection fraction is between 50-55%. Diastolic function is indeterminate on the basis of available data. Right Ventricle The right ventricle was not well visualized. Atria The left atrium is severely dilated. Interatrial shunt cannot be excluded. The right atrium was not well visualized. Aortic Valve Normal aortic valve structure and function. There is no aortic valve stenosis. There is no aortic valve regurgitation. Mitral Valve There is mild anterior mitral leaflet thickening. There is mild mitral annular calcification. There is trace mitral valve regurgitation. There is no mitral valve stenosis. Pulmonic Valve The pulmonic valve was not well visualized. Tricuspid Valve Normal tricuspid valve structure. There is mild tricuspid valve regurgitation. There is no evidence of pulmonary hypertension. Great Vessels There is mild dilatation of the ascending aorta measuring 3.90 cm. Venous The inferior vena cava is normal in size and collapses greater than 50% with inspiration. Pericardium/Pleural There is no evidence of pericardial effusion. Prior Study Comparison No significant change compared to prior study dated: 02/10/2021. Measurements 2D Linear Measurements IVSd: 1.16 0.6-0.9/0.6-1.0 cm LVIDd: 6.76 3.9-5.3/4.2-5.9 cm LVIDd Index: 2.58 2.4-3.2/2.2-3.1 cm/m2 LVIDs: 5.47 2.0-3.6 cm LVPWd: 1.15 0.7-1.1 cm LA Diam: 5.70 2.7-3.8/3.0-4.0 cm LAIDs Index: 2.18 1.5-2.3 cm/m2 LV Mass: 454.72 67-162/88-224 g LV Mass Index: 173.56 43-95/49-115 g/m2 LVOT Diam: 2.20 3.0+(-)1.3 cm 2D Systolic Function EF 4C: 49.40 >55% EF 2C: 52.00 >55% EF BiP: 50.10 >55% Mitral Valve MV Pk E: 1.07 MV Decel Time: 159.00 E'Lateral: 9.44 E'Medial: 8.60 E/E' Med: 12.40 E/E' Lat: 11.30 PHT: 47.00 MVA PHT: 4.68 Decel [place]: 6.84 Aortic Valve AoV Pk Wesley: 1.08 AoV Pk Grad: 5.00 DAMIEN: 2.57 LVOT LVOT Pk [place]: 0.73 LVOT Pk Grad: 2.00 LVOT Diam: 2.20 LVOT Area: 3.80 Diastolic Function MV Pk E: 1.07 E'Medial: 8.60 E/E' Med: 12.40 E' Laterial: 9.44 E/E' Lat: 11.30 Right Ventricle TAPSE (mm): 16.00 TVS' Wesley: 9.82 Tricuspid Valve TR Pk Wesley: 2.65 TR Pk Grad: 28.00 RA Press: 3.00 RVSP: 31.00 Great Vessels Aorta Sinus of Valsalva: 3.77 2.0-3.[address] [place]: 2.96 1.7-3.4 cm Ao Asc: 3.90 2.1-3.4 cm Updated in Other Vendor System with Status of Final Cipriano Nicole MD electronically signed on 09/24/2022 3:09:36 PM with status of Final
== END ==
LOC: HO.CARD 14:49
PROVIDERS: PCP Internal Medicine; Visit Provider Internal Medicine
DX: I48.91 Unspecified atrial fibrillation (principal)
CPT/HCPCS: 93306; Q9957

== ENCOUNTER → 2022-09-23 14:51 | Outpatient (BNV) | payer MEDICARE, SELFPAY | PROVIDERS: PCP Internal Medicine; Visit Provider Internal Medicine Cardiovascular Disease | DX: I36.1 Nonrheumatic tricuspid (valve) insufficiency (principal); I34.81 Nonrheumatic mitral (valve) annulus calcification | CPT/HCPCS: 93306 ==

== ENCOUNTER 2023-01-19 09:22 | Outpatient (REF) | payer MEDICARE, SELFPAY ==
[2023-01-19 11:15] LABS: MANUAL DIFF FLAG NO
[2023-01-19 11:34] LABS: Basophils Percent Auto 0.4 % (0-2); Eosinophils Absolute Auto 0.1 X10*3/uL (0.0-0.4); Eosinophils Percent Auto 1.5 % (0-4); Hematocrit 46.1 % (42.0-52.0); Hemoglobin 14.6 g/dl (14.0-18.0); Imm Gran Abs Auto 0.02 X10*3/uL (0.00-0.03); Imm Gran Pct Auto 0.3 % (0.0-0.4); Lymphocytes Absolute Auto 1.1 X10*3/uL (1.2-4.9); Lymphocytes Percent Auto 16.4 % (20-40); Mean Corpuscular HGB Conc 31.7 g/dl (31.0-36.0); Mean Corpuscular Hemoglobin 31.1 pg (27.0-33.0); Mean Corpuscular Volume 98.3 fL (80.0-98.0); Mean Platelet Volume 9.6 fL (9.4-12.4); Monocytes Absolute Auto 0.7 X10*3/uL (0.1-1.2); Monocytes Percent Auto 10.1 % (2-11); Neutrophils Absolute Auto 4.8 x10*3/uL (2.0-8.3); Neutrophils Percent Auto 71.3 % (45-73); Platelet Count 223 X10*3/uL (160-400); Red Blood Count 4.69 X10*6/uL (4.60-5.80); Red Cell Distribution Width 13.2 % (11.0-16.0); White Blood Count 6.7 X10*3/uL (4.8-10.8)
[2023-01-19 11:54] LABS: Alanine Aminotransferase 25 U/L (0-40); Albumin Level 4.1 g/dL (3.5-5.0); Alkaline Phosphatase 58 U/L (39-117); Anion Gap 12 (12-20); Aspartate Amino Transferase 33 U/L (5-37); Bilirubin Total 0.9 mg/dL (0.0-1.0); Blood Urea Nitrogen 14 mg/dL (9-16); Calcium 9.5 mg/dL (8.4-10.2); Carbon Dioxide 30 mmol/L (22-29); Chloride 107 mmol/L (96-108); Cholesterol 131 mg/dL (<200); Estimated Glomerular Filt Rate > 60; Glucose Fasting 107 mg/dL (60-99); HDL Cholesterol 33 mg/dL (>40); LDL Cholesterol Calculated 78 mg/dL (<100); Sodium 144 mmol/L (135-145); Triglycerides 100 mg/dL (<150)
[2023-01-19 12:02] LABS: Prostate Specific Antigen Scr 1.28 ng/mL (<0.05-4.0)
== END 2023-01-19 09:23 | disposition home or self-care (01) ==
LOC: HO.HMGCLDS 09:22
PROVIDERS: PCP Internal Medicine; Visit Provider Internal Medicine
DX: Z12.5 Encounter for screening for malignant neoplasm of prostate (principal); I48.91 Unspecified atrial fibrillation; I10 Essential (primary) hypertension; E78.00 Pure hypercholesterolemia, unspecified; R35.1 Nocturia
CPT/HCPCS: 36415; 80053; 80061; 84153; 85025

== ENCOUNTER 2023-01-24 11:53 | Outpatient (REF) | payer MEDICARE, SELFPAY ==
[2023-01-24 14:09] LABS: B Type Natriuretic Peptide 151 pg/mL (<100)
[2023-01-25 08:54] LABS: Lyme Abs Screen <0.90 index
== END 2023-01-24 11:54 | disposition home or self-care (01) ==
LOC: HO.10HDL 11:53
PROVIDERS: Visit Provider Internal Medicine
DX: T14.8XXA Other injury of unspecified body region, initial encounter (principal); R06.02 Shortness of breath; W57.XXXA Bitten or stung by nonvenomous insect and other nonvenomous arthropods, initial encounter; Y93.9 Activity, unspecified; Y92.9 Unspecified place or not applicable; Y99.9 Unspecified external cause status
CPT/HCPCS: 36415; 83880; 86617; 86618

== ENCOUNTER 2023-05-23 14:56 | Emergency (ER) | payer MEDICARE, SELFPAY ==
--- NOTE | ~2023-05-23 | US_ITS ---
EXAMINATION: US NONINVASIVE ASSESSMENT OF THE RIGHT LOWER EXTREMITY WITH ARTERIAL DUPLEX CLINICAL INFORMATION: Cool right foot. Arterial occlusion. COMPARISON: None available. TECHNIQUE: Duplex Doppler techniques with waveform analysis and measurement of velocities in the common femoral, profunda femoris, superficial femoral, popliteal and tibial arteries were performed.. FINDINGS: RIGHT LOWER EXTREMITY DUPLEX ULTRASOUND: Common femoral artery: 102.9 cm/s. Diastolic flow reversal: Present Profunda femoris artery: 39 cm/s. Diastolic flow reversal: Poorly visualized, suspect present Superficial femoral artery (proximal): 87.4 cm/s. Diastolic flow reversal: Present Superficial femoral artery (mid): 75.4 cm/s. Diastolic flow reversal: Present Superficial femoral artery (distal): 55.3 cm/s. Diastolic flow reversal: Present Proximal popliteal artery: Peak systolic velocity 14.3 cm/s. The popliteal artery appears slightly expanded and there is hypoechoic material within the vessel. No color or spectral Doppler signal was able to be visualized suggesting possible thrombosis. Peroneal artery: Not visualized Dorsalis pedis: 13.3 cm/s Diastolic flow reversal: Absent Anterior tibial artery: 6.1 cm/s Diastolic flow reversal: Absent Posterior tibial artery: 41.9 cm/s Diastolic flow reversal: Monophasic US/US arterial duplex LE RT IMPRESSION: Reduced flow velocity within the proximal popliteal artery and loss of Doppler signal in the mid to distal vessel suggesting occlusion/thrombosis. Distally the peroneal artery is not well-visualized, potentially occluded as well. There is reduced flow velocity and monophasic waveforms within the anterior tibial, dorsalis pedis, and posterior tibial arteries. Vascular surgery consultation is advised. Urgent findings were communicated by telephone with Kassandra York NP by Tad Fishman M.D. at approximately 2004 hours.
--- NOTE | ~2023-05-23 | US_ITS ---
EXAMINATION: US VENOUS ULTRASOUND WITH DOPPLER LOWER EXTREMITY, RIGHT CLINICAL INFORMATION: Right leg calf pain. COMPARISON: None available. TECHNIQUE: Ultrasound of the deep veins is performed from the hip to the calf with compression sonography and color and pulse Doppler assessment. Spectral analysis with color-flow imaging is performed. FINDINGS: There is normal venous compression and respiratory variation and augmented flow. The visualized common femoral vein, superficial femoral vein, profunda femoral vein, popliteal vein, and the trifurcation region shows no evidence of deep venous thrombosis. The right peroneal vein is not visualized. There is normal flow and compression seen in the right posterior tibial vein. The left common femoral vein is patent as well. There is no significant popliteal fossa cyst. If the patient's symptoms persist, followup ultrasound in 5 days 7 days might be of value to exclude proximal propagation from a non-visualized calf vein. US/US venous duplex LE RT IMPRESSION: No DVT demonstrated in the right lower extremity.
[2023-05-23 15:24] VITALS: BP 182/102; PULSE 79; RESP 18; TEMP 37.2; O2SAT 100; BMI 43.4
--- NOTE | 2023-05-23 15:35 | ED_ITS ---
HPI - General Adult General Chief complaint: Extremity Injury, Lower Stated complaint: r leg pain Time Seen by Provider: 05/23/23 18:44 Source: patient Mode of arrival: ambulatory Limitations: no limitations History of Present Illness HPI narrative: Patient is a 67-year-old male who presents emergency department for evaluation of right calf/right lateral leg pain with onset 5 days ago. Pain is constant in nature with varying intensity. Reports a history of similar pain a few years back which he thought was related to a muscle cramp but this improved after a few days. With expresses concern that his right foot is cold to touch when compared to the left and appears discolored. He reports that he is currently anticoagulated on Coumadin secondary to atrial fibrillation with INR at home today of 2.8. Related Data Home Medications Medication Instructions Recorded Confirmed clonidine HCl 0.1 mg tablet 2 tab PO BID 05/24/22 09/20/22 enoxaparin 150 mg/mL subcutaneous mg subcut 05/24/22 09/20/22 syringe irbesartan 300 mg tablet 1 tab PO DAILY 05/24/22 09/20/22 pantoprazole 40 mg tablet,delayed 1 tab PO BID 05/24/22 09/20/22 release pravastatin 80 mg tablet 1 tab PO DAILY 05/24/22 09/20/22 warfarin 5 mg tablet tab PO 05/24/22 09/20/22 Previous Rx's Medication Instructions Recorded hydrocortisone acetate 25 mg 25 mg AK BID #12 ea 09/20/22 rectal suppository (Anucort-HC) Allergies Allergy/AdvReac Type Severity Reaction Status Date / Time aspirin [ASPIRIN] AdvReac Unknown PT STATES Unverified 09/20/22 09:24 HE CAN'T TAKE BECAUSE HE IS ON COUMADIN lisinopril [LISINOPRIL] AdvReac Unknown COUGH Unverified 09/20/22 09:24 NSAIDS (Non-Steroidal AdvReac Unknown PT STATES Unverified 09/20/22 09:24 Anti-Inflamma HE CAN'T [NSAIDS (NON-STEROIDAL TAKE ANTI-INFLAMMA] BECAUSE HE IS ON COUMADIN can't take ASA or NSAIDS Allergy Unknown Unknown Uncoded 09/20/22 09:24 sensitive to lipitor Allergy Unknown Unknown Uncoded 09/20/22 09:24 sensitive to lisinopril Allergy Unknown Unknown Uncoded 09/20/22 09:24 From LIPITOR AdvReac Unknown ELEVATED Uncoded 09/20/22 09:24 LFT'S, MUSCLE PAIN Review of Systems 2 Review of Systems: Yes all other systems are reviewed and are negative [facility] Past Medical History Attestation statement: The following information was validated with the patient. Source: old records reviewed Medical History Bleeding hemorrhoids Left hip pain Nocturia Hx of osteoarthritis History of hyperlipidemia Back pain Hx of atrial fibrillation without current medication Arrhythmia HTN (hypertension) Surgical History History of hip surgery Hx of laminectomy Hx of colonoscopy Social History Social History Alcohol intake: current Alcohol intake frequency: a few times a week Patient Tobacco Use Status: Former Tobacco user Cigarette Packs Per Day: 1 Cigarettes Per Day: 20.0 Years Smoked: 34 Smoked in Last 30 Days: No Use of substances other than those prescribed or required for medical reasons: No Advance Directives: No Advance Directives Information Provided: No Physical Exam ED Vital Signs: Vital Signs - 24 hr 05/23/23 15:24 05/23/23 18:46 05/23/23 21:35 Temperature 98.9 F 97.9 F 98.6 F Pulse Rate 79 84 83 Respiratory Rate 18 18 18 Blood Pressure 182/102 H 147/92 H 148/95 H Pulse Oximetry 100 94 94 Oxygen Delivery Method Room Air Room Air Room Air BMI result Body Mass Index 43.4 Appearance: Alert.?Oriented to person, place and time. No acute distress.?Normal affect. Eyes: Pupils equal, round and reactive to light.? ENT: Pharynx normal.?? Neck: Normal inspection.? Neck supple.?? CVS: Heart sounds normal. Normal heart rate and rhythm.? Pulses normal.?? Respiratory: No respiratory distress.? Lung sounds clear to auscultation bilaterally?? Abdomen: Soft and non-tender. Normoactive bowel sounds. Skin: Skin warm and dry.? Normal skin color.? Extremities: No lower extremity edema.? Right calf tenderness upon palpation. Right DP/PT pulse 1 +, delayed cap refill, foot is cool to the touch with slight pallor. left DP/PT pulse 2 + Neuro: Moves all extremities spontaneously. Sensation intact bilaterally. No focal neuro deficits. Ambulates with normal steady gait. Course Course Course Narrative: 67-year-old male presents to ED for right leg calf pain cramping since Tuesday. Patient denies any trauma. On exam right foot sling cooler than left lower extremity. Patient not in distress. Labs, arterial and venous DVT ordered. Right leg cooler than left leg. Both lower extremities pulses are intact. Reevaluation(s) Reevaluation #1: Received call from Radiology, Chris Fishman, patient has arterial occlusion in the popliteal artery on the right likely involving peroneal as well with limited flow beyond that point. Unfortunately, we do not have vascular coverage at this time, will speak with transfer line at [facility]. Time: 20:03 Reevaluation #2: [facility] closed transfers, awaiting call back from [facility] transfer line Time: 20:29 Reevaluation #3: Patient accepted for transfer to [facility] Emergency Department on [facility] in [place] - accepting Dr. Yeung. Patient and family updated on plan of care and are agreeable. Pending EMS transport. Time: 20:53 Medical Decision Making Medical Decision Making [facility] Narrative: Patient is a 67-year-old male past medical history of hyperlipidemia, hypertension, atrial fibrillation on long-term anticoagulation with Coumadin presenting to emergency department for evaluation of distal left leg pain primarily to the calves and right lateral leg in addition to right foot being cool to touch with subjective discoloration per patient and his . He is anticoagulated, clinically have lower suspicion for acute DVT. Ultrasound imaging ordered prior to my assumption of care including venous duplex and arterial duplex results are pending at this time. Serum labs reveal therapeutic INR at 2.3, no leukocytosis or anemia, overall unremarkable CMP, magnesium within normal range. Right lower extremity with 1+ DP/PT pulse, decreased cap refill, slight pallor and cool to touch. Differential Diagnosis Differential Diagnoses: The differential diagnosis associated with the presentation includes (Arterial occlusion, muscular strain, DVT, radiculopathy) Admission/Observation Consideration of admission/observation: Escalation of care including admission/observation considered (See course narrative for further detail) Consult Healthcare Provider Management of the patient was discussed with: Participant Administrator (Vascular) Lab Data [facility] Lab Attestation statement: I reviewed the patient's lab results. (See narrative above) 05/23/23 18:38 05/23/23 18:38 Labs: Lab Results 05/23/23 Range/Units 18:38 WBC 6.3 (4.8-10.8) X10*3/uL RBC 4.67 (4.60-5.80) X10*6/uL Hgb 14.6 (14.0-18.0) g/dl Hct 43.2 (42.0-52.0) % MCV 92.5 (80.0-98.0) fL MCH 31.3 (27.0-33.0) pg MCHC 33.8 (31.0-36.0) g/dl RDW 13.6 (11.0-16.0) % Plt Count 201 (160-400) X10*3/uL MPV 9.1 L (9.4-12.4) fL Immature Gran % (Auto) 0.2 (0.0-0.4) % Neut % (Auto) 66.1 (45-73) % Lymph % (Auto) 24.2 (20-40) % [place] % (Auto) 7.2 (2-11) % Eos % (Auto) 1.8 (0-4) % Baso % (Auto) 0.5 (0-2) % Lymph # (Auto) 1.5 (1.2-4.9) X10*3/uL [place] # (Auto) 0.5 (0.1-1.2) X10*3/uL Eos # (Auto) 0.1 (0.0-0.4) X10*3/uL Baso # (Auto) 0.0 (0.0-0.2) X10*3/uL Abs Immat Gran (auto) 0.01 (0.00-0.03) X10*3/uL Absolute Neuts (auto) 4.1 (2.0-8.3) x10*3/uL Absolute Nucleated RBC 0.000 (0.0-0.012) X10*3/uL Nucleated RBC % (auto) 0.0 (0.0-0.2) /100WBC PT 27.8 H (11.1-13.3) SEC INR 2.3 H (0.9-1.1) APTT 45.9 H (26.0-36.8) SEC Sodium 141 (135-145) mmol/L Potassium 4.5 (3.3-5.1) mmol/L Chloride 109 H (96-108) mmol/L Carbon Dioxide 24 (22-29) mmol/L Anion Gap 13 (12-20) BUN 20 H (9-16) mg/dL Creatinine 1.06 (0.5-1.4) mg/dL Estim Creat Clear Calc 97.3 Estimated GFR > 60 Random Glucose 107 (60-115) mg/dL Calcium 9.5 (8.4-10.2) mg/dL Magnesium 1.7 (1.6-2.6) mg/dL Total Bilirubin 0.5 (0.0-1.0) mg/dL AST 25 (5-37) U/L ALT 22 (0-40) U/L Alkaline Phosphatase 59 (39-117) U/L Total Protein 7.8 (6.5-8.0) g/dL Albumin 4.1 (3.5-5.0) g/dL Independent Interpretation I performed an independent interpretation of an: Ultrasound (No DVT) Radiology Impression Discussion of test interpretation with radiology: I have reviewed the radiologist's reading. Radiologist Impression: US/US venous duplex LE RT IMPRESSION: No DVT demonstrated in the right lower extremity. US/US arterial duplex LE RT IMPRESSION: Reduced flow velocity within the proximal popliteal artery and loss of Doppler signal in the mid to distal vessel suggesting occlusion/thrombosis. Distally the peroneal artery is not well-visualized, potentially occluded as well. There is reduced flow velocity and monophasic waveforms within the anterior tibial, dorsalis pedis, and posterior tibial arteries. Vascular surgery consultation is advised. Critical Care Time Critical Care Time Critical Care Time: Yes Total Critical Care Time: 60 Attestation: I personally attest to this critical care time spent taking care of the patient exclusive of all other billable procedures was approximately 60 minutes including initial evaluation of patient, ordering tests, medical consultation, documentation, re-evaluation. Discharge Plan Discharge Clinical Impression: Arterial occlusion, lower extremity Patient Disposition: [facility] Transfer Details: [facility] Prescriptions: No Action clonidine HCl 0.1 mg tablet 2 tab PO BID pravastatin 80 mg tablet 1 tab PO DAILY pantoprazole 40 mg tablet,delayed release (DR/EC) 1 tab PO BID warfarin 5 mg tablet PO enoxaparin 150 mg/mL syringe subcut irbesartan 300 mg tablet 1 tab PO DAILY hydrocortisone acetate [Anucort-HC] 25 mg suppository 25 mg AK BID Qty: 12 2RF Interventions: Acute Care Transfer Worksheet (ED) Last Done: 05/23/23 22:43 Discharge Date/Time: 05/23/23 22:44
[2023-05-23 18:43] LABS: MANUAL DIFF FLAG NO
[2023-05-23 18:46] VITALS: BP 147/92; PULSE 84; RESP 18; TEMP 36.6; O2SAT 94
[2023-05-23 18:57] LABS: Basophils Percent Auto 0.5 % (0-2); Eosinophils Absolute Auto 0.1 X10*3/uL (0.0-0.4); Eosinophils Percent Auto 1.8 % (0-4); Hematocrit 43.2 % (42.0-52.0); Hemoglobin 14.6 g/dl (14.0-18.0); Imm Gran Abs Auto 0.01 X10*3/uL (0.00-0.03); Imm Gran Pct Auto 0.2 % (0.0-0.4); Lymphocytes Absolute Auto 1.5 X10*3/uL (1.2-4.9); Lymphocytes Percent Auto 24.2 % (20-40); Mean Corpuscular HGB Conc 33.8 g/dl (31.0-36.0); Mean Corpuscular Hemoglobin 31.3 pg (27.0-33.0); Mean Corpuscular Volume 92.5 fL (80.0-98.0); Mean Platelet Volume 9.1 fL (9.4-12.4); Monocytes Absolute Auto 0.5 X10*3/uL (0.1-1.2); Monocytes Percent Auto 7.2 % (2-11); Neutrophils Absolute Auto 4.1 x10*3/uL (2.0-8.3); Neutrophils Percent Auto 66.1 % (45-73); Platelet Count 201 X10*3/uL (160-400); Red Blood Count 4.67 X10*6/uL (4.60-5.80); Red Cell Distribution Width 13.6 % (11.0-16.0); White Blood Count 6.3 X10*3/uL (4.8-10.8)
[2023-05-23 18:59] LABS: Alanine Aminotransferase 22 U/L (0-40); Albumin Level 4.1 g/dL (3.5-5.0); Alkaline Phosphatase 59 U/L (39-117); Anion Gap 13 (12-20); Aspartate Amino Transferase 25 U/L (5-37); Bilirubin Total 0.5 mg/dL (0.0-1.0); Blood Urea Nitrogen 20 mg/dL (9-16); Calcium 9.5 mg/dL (8.4-10.2); Carbon Dioxide 24 mmol/L (22-29); Chloride 109 mmol/L (96-108); Creatinine Clr Calc Pharmacy 97.3; Estimated Glomerular Filt Rate > 60; Glucose Random 107 mg/dL (60-115); INTERNATIONAL NORM RATIO 2.3 (0.9-1.1); Magnesium 1.7 mg/dL (1.6-2.6); Potassium 4.5 mmol/L (3.3-5.1); Prothrombin Time 27.8 SEC (11.1-13.3); Sodium 141 mmol/L (135-145); Total Protein 7.8 g/dL (6.5-8.0)
[2023-05-23 19:02] LABS: Partial Thromboplastin Time 45.9 SEC (26.0-36.8)
--- NOTE | 2023-05-23 20:13 | PC.NURSE ---
received report from Bibiana SABILLON, assumed care of pt, pt sitting in stretcher, no acute distress noted. provider a lisa to discuss pt care.
--- NOTE | 2023-05-23 21:32 | PC.NURSE ---
pt ambulated to bathroom with steady gait
[2023-05-23 21:35] VITALS: BP 148/95; PULSE 83; RESP 18; TEMP 37; O2SAT 94
--- NOTE | 2023-05-23 21:41 | PC.NURSE ---
20G placed in right AC, plan of care ongoing, pt to be transferred to [facility]
--- NOTE | 2023-05-23 21:48 | PC.NURSE ---
expect report given to Luz SABILLON at [facility] [place].
--- NOTE | 2023-05-23 22:37 | PC.NURSE ---
ems at bedside to transport pt, report given.
== END 2023-05-23 22:44 | disposition short-term general hospital (02) ==
PROVIDERS: Nurse Practitioner Family; Physician Assistant; Emergency Provider Internal Medicine; PCP Internal Medicine
DX: I70.201 Unspecified atherosclerosis of native arteries of extremities, right leg (principal); I48.91 Unspecified atrial fibrillation; Z79.01 Long term (current) use of anticoagulants
CPT/HCPCS: 36415; 80053; 83735; 85025; 85610; 85730; 93926; 93971; 99285

== ENCOUNTER 2023-06-03 13:34 | Outpatient (REF) | payer MEDICARE, SELFPAY ==
--- NOTE | ~2023-06-03 | US_ITS ---
EXAMINATION: US VENOUS ULTRASOUND WITH DOPPLER LOWER EXTREMITY, RIGHT CLINICAL INFORMATION: Right leg postoperative edema and swelling. COMPARISON: None available. TECHNIQUE: Ultrasound of the deep veins is performed from the hip to the calf with compression sonography and color and pulse Doppler assessment. Spectral analysis with color-flow imaging is performed. FINDINGS: There is normal venous compression and respiratory variation and augmented flow. The visualized common femoral vein, superficial femoral vein, profunda femoral vein, popliteal vein, and the trifurcation region shows no evidence of deep venous thrombosis. Peroneal veins not visualized likely due to edema. There is no significant popliteal fossa cyst. If the patient's symptoms persist, followup ultrasound in 5 days 7 days might be of value to exclude proximal propagation from a non-visualized calf vein. US/US venous duplex LE RT IMPRESSION: No DVT demonstrated in the right lower extremity.
== END 2023-06-03 13:35 | disposition home or self-care (01) ==
LOC: HO.US 13:34
PROVIDERS: PCP Internal Medicine; Visit Provider Internal Medicine
DX: I82.401 Acute embolism and thrombosis of unspecified deep veins of right lower extremity (principal); L76.82 Other postprocedural complications of skin and subcutaneous tissue
CPT/HCPCS: 93971

== ENCOUNTER 2023-08-17 09:35 | Outpatient (REF) | payer MEDICARE, SELFPAY ==
[2023-08-17 10:48] LABS: Alanine Aminotransferase 18 U/L (0-40); Albumin Level 3.9 g/dL (3.5-5.0); Alkaline Phosphatase 59 U/L (39-117); Anion Gap 13 (12-20); Aspartate Amino Transferase 20 U/L (5-37); Bilirubin Total 0.6 mg/dL (0.0-1.0); Blood Urea Nitrogen 20 mg/dL (9-16); Calcium 9.7 mg/dL (8.4-10.2); Carbon Dioxide 26 mmol/L (22-29); Chloride 108 mmol/L (96-108); Estimated Glomerular Filt Rate > 60; Glucose Random 110 mg/dL (60-115); Potassium 4.8 mmol/L (3.3-5.1); Sodium 142 mmol/L (135-145); Total Protein 7.6 g/dL (6.5-8.0)
== END 2023-08-17 09:36 | disposition home or self-care (01) ==
LOC: HO.HMGCLDS 09:35
PROVIDERS: PCP Internal Medicine; Visit Provider Internal Medicine
DX: I10 Essential (primary) hypertension (principal); I48.91 Unspecified atrial fibrillation
CPT/HCPCS: 36415; 80053

== ENCOUNTER 2023-08-22 10:20 | Outpatient (REF) | payer MEDICARE, SELFPAY ==
--- NOTE | ~2023-08-22 | XR_ITS ---
EXAMINATION: XR FOOT, LEFT CLINICAL INFORMATION: Left foot pain, patient states heel pain. COMPARISON: None available. TECHNIQUE: AP, lateral, and oblique views of the left foot. FINDINGS: Large plantar calcaneal spur with extensive heterogeneous plantar calcifications. Prominent dorsal calcaneal spurring. Vascular calcifications. Degenerative changes at the tarsometatarsal joints. Moderate degenerative changes in the first metatarsophalangeal joint with joint space narrowing and hypertrophic change. Mild irregularity along the articular surface at the base of the second digit proximal phalanx. Small calcification/ossicle lateral to the base of the fifth metatarsal XR/XR foot LT min 3V IMPRESSION: 1. Large plantar calcaneal spur with extensive heterogeneous plantar calcifications. 2. Prominent dorsal calcaneal spurring. 3. Moderate degenerative changes in the first metatarsophalangeal joint. 4. Mild irregularity along the articular surface at the base of the second digit proximal phalanx.
== END 2023-08-22 10:21 | disposition home or self-care (01) ==
LOC: HO.XRAY 10:20
PROVIDERS: PCP Internal Medicine; Visit Provider Internal Medicine
DX: M79.672 Pain in left foot (principal)
CPT/HCPCS: 73630

== ENCOUNTER 2023-11-28 11:30 | Outpatient (RCR) | payer MEDICARE, SELFPAY | END 2023-12-02 15:19 | disposition home or self-care (01) | LOC: HO.CR 11:30 | PROVIDERS: PCP Internal Medicine; Visit Provider Thoracic Surgery (Cardiothoracic Vascular Surgery) | DX: Z95.1 Presence of aortocoronary bypass graft (principal) | CPT/HCPCS: 93798 ==

== ENCOUNTER 2024-01-19 10:47 | Outpatient (REF) | payer MEDICARE, SELFPAY ==
--- NOTE | ~2024-01-19 | US_ITS ---
EXAMINATION: US NONINVASIVE ASSESSMENT OF THE RIGHT LOWER EXTREMITY WITH ARTERIAL DUPLEX AND ANKLE BRACHIAL INDICES (ABIS) CLINICAL INFORMATION: Peripheral vascular disease, history of right lower extremity bypass graft COMPARISON: 05/23/2023 TECHNIQUE: Duplex Doppler techniques with waveform analysis and measurement of velocities in the common femoral, profunda femoris, superficial femoral, popliteal and tibial arteries were performed. In addition, ankle pulse volume recordings, ankle pressure measurements and ankle brachial indices were obtained of the right lower extremity arterial system. The study was performed only at rest. FINDINGS: NONINVASIVE ASSESSMENT OF THE ARTERIES OF BILATERAL LOWER EXTREMITIES WITH ABIs: RIGHT LEG: Ankle-brachial index: 1.19 Ankle PVR: Normal LEFT LEG: Ankle-brachial index: 1.19 Left ankle PVR: Normal DANIEL Reference: 0.9 - 1.4 = normal - no significant arterial disease 0.7 - 0.89 = mild peripheral arterial disease 0.51 - 0.69 = moderate peripheral arterial disease 0.50 = severe peripheral arterial disease RIGHT LOWER EXTREMITY DUPLEX ULTRASOUND: Common femoral artery: 105 cm/s. Diastolic flow reversal: Triphasic Profunda femoris artery: 50.9 cm/s. Diastolic flow reversal: Triphasic Superficial femoral artery (proximal): 103 cm/s. Diastolic flow reversal: Biphasic Superficial femoral artery (mid): 85.1 cm/s. Diastolic flow reversal: Triphasic Superficial femoral artery (distal): 54.6 cm/s. Diastolic flow reversal: Triphasic Bypass graft from the distal superficial femoral artery to the posterior tibial artery: Proximal Anastomosis: 47.9 cm/s, triphasic Proximal graft: 46.5 cm/s, triphasic Mid graft: 52.9 cm/s, triphasic Distal graft: 48.5 cm/s, triphasic Distal anastomosis: 44.5 cm/s, triphasic Popliteal artery: 14.9 cm/s Diastolic flow reversal: Biphasic Posterior tibial artery: 104 cm/s Diastolic flow reversal: Triphasic Peroneal artery: 22.1 cm/s, monophasic with reversed flow Anterior tibial artery: 9.4 cm/s, monophasic with reversed flow US/US arterial duplex LE RT IMPRESSION: Patent right lower extremity bypass graft from the distal superficial femoral artery to the posterior tibial artery. There is reversal of flow in the anterior tibial and peroneal arteries. Electronically signed by: Fredrick Galicia MD 02/13/2024 03:28 PM EST AN[place]ION[facility]TE
== END 2024-01-19 10:48 | disposition home or self-care (01) ==
LOC: HO.US 10:47
PROVIDERS: PCP Internal Medicine; Visit Provider Nurse Practitioner Acute Care
DX: I75.021 Atheroembolism of right lower extremity (principal)
CPT/HCPCS: 93923; 93926

== ENCOUNTER 2024-03-29 14:16 | Outpatient (AMB) | payer MEDICARE, SELFPAY ==
[2024-03-29 14:16] VITALS: BMI 43.4
--- NOTE | 2024-03-29 14:16 | A.OFFVIS_ITS ---
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 Luis and Left Kidney removal 11/29/23. Pt states bilateral LE coldness. Personal Lines Account Manager Required: No Accompanied by: Spouse Allergies aspirin [ASPIRIN] Adverse Reaction (Unknown, Unverified 09/20/22 09:24) PT STATES HE CAN'T TAKE BECAUSE HE IS ON COUMADIN lisinopril [LISINOPRIL] Adverse Reaction (Unknown, Unverified 09/20/22 09:24) COUGH NSAIDS (Non-Steroidal Anti-Inflamma [NSAIDS (NON-STEROIDAL ANTI-INFLAMMA] Adverse Reaction (Unknown, Unverified 03/29/24 14:28) PT STATES HE CAN'T TAKE BECAUSE HE IS ON COUMADIN sensitive to lisinopril Adverse Reaction (Mild, Uncoded 03/29/24 14:28) Cough can't take ASA or NSAIDS Adverse Reaction (Unknown, Uncoded 03/29/24 14:28) Unknown From LIPITOR Adverse Reaction (Unknown, Uncoded 09/20/22 09:24) ELEVATED LFT'S, MUSCLE PAIN HPI HPI 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 He originally had his procedure done at [facility] but transferred his follow-up due to closer proximity. Originally presented to the emergency room on 05/23/2023. Prior to that he had been on Coumadin for AFib. He noted that his right leg was cooler and had arterial and venous studies performed. It was noted that he had an acute popliteal occlusion at that point and was subsequently transferred to [facility]. Upon presentation at [facility] he underwent right above knee popliteal to posterior tibial bypass with reverse saphenous vein on 05/28/2023. He did have some difficulty postop with edema and cellulitis but that all seems to be resolved. After that entire workup he was discovered to have a left kidney mass. And upon preoperative evaluation he was noted to have coronary artery disease. He subsequently underwent three-vessel CABG at [facility]. In addition he has undergone left nephrectomy as well. He now presents for follow-up regarding his lower extremities with noninvasive arterial testing. Of note he is on Eliquis and being maintained on a statin as well. [facility] Medical History Bleeding hemorrhoids Left hip pain Nocturia Hx of osteoarthritis History of hyperlipidemia Back pain Hx of atrial fibrillation without current medication Arrhythmia HTN (hypertension) Surgical History History of hip surgery Hx of laminectomy Hx of colonoscopy Social History Alcohol intake: current Alcohol intake frequency: a few times a week Patient Tobacco Use Status: Former Tobacco user Cigarette Packs Per Day: 1 Cigarettes Per Day: 20.0 Years Smoked: 34 Review of Systems Const All systems reviewed & are unremarkable except as noted in HPI and below Reports no additional complaints ENT Reports Normal hearing present Card Denies chest pain, Denies chest pain at rest, Denies chest pain with activity and Denies pedal edema Resp Denies cough GI Denies abdominal pain Musc Denies abnormal gait, Denies muscle cramps and Denies radiating pain into limb Skin/Breast Denies skin ulcer and Denies wounds Neuro Reports Normal hearing present and Denies abnormal gait Psych Reports no additional complaints Physical Exam Vital Signs: BMI result Body Mass Index 43.4 Const General: cooperative, healthy appearing and comfortable Orientation/consciousness: oriented to person, oriented to place and oriented to time HEENT Head: Yes normal to inspection Neck Neck: Yes normal visual inspection Carotids: no bruits Chest Chest palpation & inspection: normal inspection of the chest Resp Effort & Inspection: normal respiratory effort and able to speak in complete sentences Auscultation: clear to auscultation bilaterally, no crackles, no rales, no rhonchi and no wheezes Cardio Other: Right side palpable PT, left side palpable DP and PT Rate: regular rate Rhythm: regular rhythm Heart sounds: S1 normal heart sound present and S2 normal heart sound present Bruits: no carotid bruits Peripheral pulses: Peripheral pulses 2+ throughout GI Inspection: Yes normal to inspection Skin Wounds: no wounds Hair: normal Neuro General: oriented to person, oriented to place and oriented to time Cranial nerves: Yes CN's II-XII intact bilaterally and Yes Normal hearing present Cognition (Neuro): normal cognition Motor exam (neuro): 5/5 motor strength present throughout Extrem Other: venous exam: No significant superficial varicosities or spider telangiectasias, minimal edema General: No clubbing, No cyanosis and No edema Psych Appearance: grossly normal Mental Status: mental status grossly normal Speech and movement: Normal speech and movement present Results Reviewed Results Reviewed: Noninvasive arterial testing dated 01/19/2024 demonstrates DANIEL on the right of 1.19 and on the left of 1.19. Bypass is patent on direct ultrasound with no significant stenosis on anastomosis. Assessment & Plan Assessment & Plan (1) PAD (peripheral artery disease): Code(s): I73.9 - Peripheral vascular disease, unspecified Category: Medical Plan: In short patient is stable from his bypass. This does appear to be embolic in nature and has been switched from Coumadin to Eliquis. He appears to be doing relatively well with that. In addition we did discuss routine conservative measures including a healthy diet and the importance of exercise and ambulation. We did discuss risk factor modification. The patient will continue to to follow-up with surveillance follow-up in approximately 1 year. Thank you for allowing us to participate in this patient's care. If there are any questions or concerns please do not hesitate to contact us. The patient had an opportunity to ask questions regarding the treatment plan. All questions were answered. Imaging studies, laboratory studies and physical exam results were discussed and reviewed in detail. No major barriers to understanding were identified. The patient expressed understanding and agreement with the above treatment plan. The patient is aware they should contact our office by phone for worsening of the current condition or the appearance of new symptoms. Thank you for allowing me to participate in the vascular care of this patient. If you have any questions or concerns regarding the treatment for the above condition please do not hesitate to contact me. The office telephone contact is [phone]. This note is constructed using voice recognition software. While every effort has been made to ensure accuracy, medical claims processor errors may have been included. Thank you for allowing me to participate in the care of your patient. Yours sincerely, Bob Elena MD, FACS, R.P.V.I. Orders: Orders US arterial duplex LE BI 1 Year I73.9 - Peripheral vascular disease, unspecified Coding Level of Care Code New Pt Level 4 (11944) Complex EM visit Add On G2211 Diagnoses PAD (peripheral artery disease) I73.9
== END 2024-03-29 15:16 | disposition home or self-care (01) ==
PROVIDERS: PCP Internal Medicine; Visit Provider Surgery Vascular Surgery
DX: I73.9 Peripheral vascular disease, unspecified (principal)
CPT/HCPCS: 99204; G2211

== ENCOUNTER → 2024-03-29 14:16 | Outpatient (BNVA) | payer MEDICARE, SELFPAY | PROVIDERS: PCP Internal Medicine; Visit Provider Surgery Vascular Surgery | DX: I73.9 Peripheral vascular disease, unspecified (principal) | CPT/HCPCS: 99202 ==

== ENCOUNTER 2024-06-15 11:32 | Outpatient (AMB) | payer MEDICARE, SELFPAY ==
[2024-06-15 11:34] VITALS: BP 132/82; PULSE 92; TEMP 36.7; O2SAT 97
--- NOTE | 2024-06-15 11:34 | MHC.OFFWIV ---
Intake Vital Signs 06/15/24 11:34 Height 6 ft BP 132/82 Blood Pressure Location Lt brachial Position Sitting Pulse 92 Pulse Source Pulse Oximeter Temp 98.0 F Temp Source Oral Pulse Oximetry (%) 97 Oxygen Delivery Method Room Air Intake Visit Reasons: EP RT index finger (dog Bite) Patient Tobacco Use Status: Former Tobacco user Allergies aspirin [ASPIRIN] Adverse Reaction (Unknown, Verified 06/15/24 11:34) PT STATES HE CAN'T TAKE BECAUSE HE IS ON COUMADIN lisinopril [LISINOPRIL] Adverse Reaction (Unknown, Verified 06/15/24 11:34) COUGH NSAIDS (Non-Steroidal Anti-Inflamma [NSAIDS (NON-STEROIDAL ANTI-INFLAMMA] Adverse Reaction (Unknown, Verified 06/15/24 11:34) PT STATES HE CAN'T TAKE BECAUSE HE IS ON COUMADIN sensitive to lisinopril Adverse Reaction (Mild, Uncoded 03/29/24 14:28) Cough can't take ASA or NSAIDS Adverse Reaction (Unknown, Uncoded 03/29/24 14:28) Unknown From LIPITOR Adverse Reaction (Unknown, Uncoded 09/20/22 09:24) ELEVATED LFT'S, MUSCLE PAIN Do you need a note to return to daycare/school/sports/work: No HPI EP RT index finger (dog Bite) HPI Details This is a 69-year-old male patient who presents to the walk-in clinic today for a dog bite on his right index finger. Apparently his dog is blind and he was trying to give him a treat, when the dog accidentally bit his finger. Per patient and , dog is fully up-to-date on all vaccines. Patient is concerned because the bite wounds remain open and draining some fluid. Additionally, he is status post bilateral knee arthroplasty, triple bypass this past September, and left nephrectomy this past November. He is wondering if he needs antibiotics. Has some tenderness around the bite, however no surrounding erythema into hand. Denies any fevers/chills. [facility] Medical History Bleeding hemorrhoids Left hip pain Nocturia Hx of osteoarthritis History of hyperlipidemia Back pain Hx of atrial fibrillation without current medication Arrhythmia HTN (hypertension) Surgical History History of hip surgery Hx of laminectomy Hx of colonoscopy Social History Alcohol intake: current Alcohol intake frequency: a few times a week Patient Tobacco Use Status: Former Tobacco user Cigarette Packs Per Day: 1 Cigarettes Per Day: 20.0 Years Smoked: 34 Review of Systems Const All systems reviewed & are unremarkable except as noted in HPI and below Physical Exam Vital Signs: Last Vital Signs Temp 98.0 F 06/15/24 11:34 Pulse 92 06/15/24 11:34 BP 132/82 06/15/24 11:34 Pulse Ox 97 06/15/24 11:34 Oxygen Delivery Method Room Air 06/15/24 11:34 Const General: cooperative, healthy appearing, comfortable and no acute distress Nutritional Appearance: average body habitus Limitations: no limitations HEENT Head: Yes normal to inspection Resp Effort & Inspection: normal respiratory effort Skin Other: Puncture wound from dog bite right index finger, over middle phalanx, on both dorsal and palmar aspects. Small amount of purulent fluid draining from these areas. Very mildly erythematous surrounding puncture wounds. No excessive warmth. Normal range of motion in hand aside from at DIP joint/injury site Extrem General: Yes capillary refill normal and Yes no clubbing, cyanosis or edema Psych Appearance: grossly normal Mental Status: mental status grossly normal Speech and movement: Normal speech and movement present Assessment & Plan Assessment & Plan (1) Open wound of right index finger due to dog bite: Code(s): S61.250A - Open bite of right index finger without damage to nail, initial encounter; W54.0XXA - Bitten by dog, initial encounter Plan: XR of finger showed diffuse soft tissue swelling and some OA, however no acute injury to bone from bite. I obtained a culture from the wound site, and patient/ are aware we will be notified of these results and need to alter antibiotic regimen as needed based on results. I am going to start him on Augmentin x10 days. We reviewed indications, use, possible side effects of this medication. I cleansed the wounds with normal saline, and applied thin layer of bacitracin, followed by nonadherent DSD. We discussed regimen of keeping area clean and dry, and how to properly dress it. Patient to return to the clinic or PCP as needed if he does not improve with treatment, or certainly if symptoms worsen/new symptoms develop. Patient and his present at visit verbalized understanding and agreed to plan. Orders: Orders XR finger RT min 2V Today S61.250A - Open bite of right index finger without damage to nail, initial encounter, W54.0XXA - Bitten by dog, initial encounter Routine Culture w Gram Stain Today S61.250A - Open bite of right index finger without damage to nail, initial encounter, W54.0XXA - Bitten by dog, initial encounter Medications: New amoxicillin-pot clavulanate 875-125 mg Take one tablet by mouth twice a day for 10 days. 1 tab PO BID 10 days 20 tabs 0RF S61.250A - Open bite of right index finger without damage to nail, initial encounter, W54.0XXA - Bitten by dog, initial encounter Coding Level of Care Code Est Pt Level 4 (34698) Diagnoses Open wound of right index finger due to dog bite S61.250A; W54.0XXA
--- OUTSIDE RECORDS SUMMARY | 2024-06-15 13:34 | XMS_ITS | Clinical Summary ---
Author Organization [facility] Address [address] [place] [address] Care Team Providers Care Real Estate Instructor Name Role Phone MattyCorona Primary Care Provider [phone] Allergies Active Allergy Reactions Criticality Noted Date Comments Lisinopril Cough 06/13/2023 Medications cloNIDine (CATAPRES) 0.1 mg tablet Take 0.1 mg by mouth 2 times a day. 3 Active furosemide (LASIX) 20 mg tablet Take 20 mg by mouth 3 times a week. 3 Active irbesartan (AVAPRO) 300 mg tablet Take 300 mg by mouth once a day. [address] (PROTONIX) 40 mg tablet Take 40 mg by mouth once a day. 3 Active pravastatin (PRAVACHOL) 80 mg tablet Take 80 mg by mouth once a day. 3 Active verapamil SR (CALAN SR) 240 mg tablet Take 240 mg by mouth nightly. 3 Active acetaminophen (TYLENOL) 325 mg tablet Take 2 tablets (650 mg total) by mouth every 6 hours as needed for pain. 4 Active Additional Information Patient taking differently: 500 mgoralAs needed, pain, Reported on 06/13/2023 aspirin 81 mg EC tablet Take 1 tablet (81 mg total) by mouth once a day. 90 tablet 3 4 Active apixaban (ELIQUIS) 5 mg tablet Take 1 tablet (5 mg total) by mouth every 12 hours. 180 tablet 4 Active doxycycline hyclate (VIBRAMYCIN) 100 mg capsule Take 100 mg by mouth 2 times a day. Active cholecalciferol (VITAMIN D3) 2,000 unit capsule Take 1 capsule by mouth. 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 Peripheral arterial disease 05/23/2023 Social History Tobacco Use Types Packs/Day Years Used Date Smoking Tobacco: Former Cigarettes Q uit: 1986 Passive Smoke Exposure: Past Alcohol Use Standard Drinks/Week Comments Yes 3 (1 standard drink = 0.6 oz pur e alcohol) Sex and Gender Information Value Date Recorded Sex Assigned at Male 05/24/2023 1:01 AM EDT Legal Sex Male 8:53 PM EDT Gender Identity Not on file Sexual Orientation Not on file Last Filed Vital Signs Vital Sign Reading Time Taken Comments Blood Pressure 147/92 08/01/2023 11:08 AM EDT Pulse 83 08/01/2023 11:08 AM EDT Temperature 36.5 ??C (97.7 ??F) 06/20/2023 9:36 AM ED T Respiratory Rate 18 08/01/2023 11:08 AM EDT Oxygen Saturation 95% 08/01/2023 11:08 AM EDT Inhaled Oxygen Concentration - - Weight 155.6 kg (343 lb) 08/01/2023 11:08 AM EDT Height 182.9 cm (6') 08/01/2023 11:08 AM EDT Body Mass Index 46.52 08/01/2023 11:08 AM EDT Plan of Treatment Health Maintenance Due Date Last Done Comments Cologuard 1955 Colon Cancer Screening 1955 Colonoscopy 1955 FOBT / Fit Test 1955 Hepatitis C Screening 1955 Sigmoidoscopy 1955 DTaP,Tdap,and Td Vaccines (1 - Tdap) 05/30/1975 Pneumococcal Vaccine: 50+ Years (1 of 1 - PCV) 05/30/2003 Zoster Vaccines (1 of 2) 05/30/2003 RSV Vaccine (60+ years old and patients) (1 - Risk 60-74 years 1-dose series) 2013 COVID-19 Vaccine ( season) 2023 02/13/2022, 08/25/2021, 02/10/2021, Additional history exists Alcohol/Substance Use Screening 03/14/2024 Depression Screening and Follow-Up 03/14/2024 Health Care Proxy Review 03/14/2024 Social Drivers of Health Annual Screening 03/14/2024 Influenza Vaccine (Season Ended) 2024 Abdominal Aortic Aneurysm (AAA) Screening Completed 05/24/2023 Hepatitis B Vaccines Aged Out No long er eligible based on patient's age to complete this topic Medical Devices Implanted Type Area Personal Health Coach Device Identifier Shelf Expiration Date Model / Serial / Lot System Closure And Repair Suture-Mediated Perclose Prostyle - [id number] Implanted:Qty: 1 on 05/25/2023 by Marvin Pack MD at [facility] Implant [employer] [id number] 02/10/2025 [id number] / / [id number] Procedures * Due to [place] [employer] law, this organization might not be sharing negative HIV tests. Procedure Name Priority Date/Time Associated Diagnosis Comments CT ANGIOGRAM RUNOFF W CONTRAST STAT 05/24/2023 6:30 AM EDT from Last 3 Months or Most Recently Relevant to Health Maintenance Results * Due to [place] [employer] law, this organization might not be sharing negative HIV tests. * CT Angiogram Runoff W Contrast (05/24/2023 6:30 AM EDT) Anatomical Region Laterality Modality Body Computed Tomogra phy 05/24/2023 7:40 AM EDT Impressions 05/24/2023 10:29 AM EDT 1. ??Patent lower abdominal vasculature with patent three-vessel runoff to the left foot. ?? 2. ??Small occluded segment of the right popliteal artery immediately before the bifurcation. 3. ??Short occluded segment at the proximal right anterior tibial artery. 4. ??The right peroneal artery is occluded at the level of the distal fibula respectively. 5. ??Limited evaluation of patency of the right posterior tibial artery due to extensive calcifications. 6. ??Partially visualized and incompletely characterize ill-defined 7.0 x 5.3 cm heterogeneous mass within the left upper pole. A dedicated renal MRI is recommended for further assessment. 7. ??Prominent aortocaval lymph nodes are indeterminate given the aforementioned findings. COMMUNICATION: Findings were discussed by Nel Abdi MD with Dr. Khoury on 05/24/2023 10:28 AM I, Nel Abdi, have reviewed the examination and concur with the findings as reported or so edited. Trainee: ??Orion Malloy If this radiology report contains a blank impression section, it is an incomplete radiology report. ??Please contact the interpreting radiologist or applicable radiology division as soon as possible to obtain the completed interpretation. ? Workstation ID: [id number] Up-to-date CT equipment and radiation dose reduction techniques were employed. CTDIvol: 2.4 - 27.8 mGy. DLP: 3005 mGy-cm. Narrative 05/24/2023 10:29 AM EDT EXAMINATION: CT ANGIOGRAM RUNOFF W CONTRAST INDICATION: Claudication or leg ischemia. Right popliteal artery occlusion. TECHNIQUE: Images of the abdomen, pelvis, and bilateral lower extremities were obtained in the arterial phase following intravenous contrast administration. Coronal and sagittal reformats were generated. 3D postprocessed reformats were also created. COMPARISON: None available. ?? FINDINGS: LOWER THORAX: The visualized lung bases are clear. VASCULAR: Examination is somewhat limited due to streak artifact from bilateral knee prostheses. Aorta: The included distal abdominal aorta is normal in caliber without dissection. Common iliac arteries: Patent and normal in caliber bilaterally. External iliac arteries: ??Patent and normal in caliber bilaterally. Internal iliac arteries: ??Patent and normal in caliber bilaterally. Right SET UP / OPERATOR: ??Patent. Right PFA: Patent. Right SFA: Patent. Right popliteal artery: Limited evaluation due to streak artifact from knee prosthesis, however there is a small segment with a complete occlusion immediately before the bifurcation. Right posterior tibial artery: Patent to the level of the foot. Right anterior tibial artery: Occluded at the level of the high ankle without distal reconstitution. Right peroneal artery: Occluded at the distal third fibular without distal reconstitution. Left SET UP / OPERATOR: ??Patent. Left PFA: Patent. Left SFA: Patent. Left popliteal artery: Patent. Left posterior tibial artery: Patent to the level of the foot. Left anterior tibial artery: Patent to the level of the foot. Left peroneal artery: Patent the level of the ??high ankle without distal reconstitution. PARTIALLY IMAGED NONVASCULAR PELVIS: KIDNEYS/URETERS: Partially visualized ill-defined 7.0 x 5.3 cm heterogeneous mass within the left upper pole. Retroaortic renal vein. GI TRACT: No distention or wall thickening in the partially imaged GI tract. Partially imaged colonic diverticulosis. PERITONEUM/RETROPERITONEUM: No ascites or free air. LYMPH NODES: Prominent aortocaval lymph nodes. PELVIC ORGANS/BLADDER: Unremarkable. BONES AND SOFT TISSUES: Degenerative changes in the partially visualized spine. OTHER: There is no abnormality within the lower extremity soft tissue/musculature. Resulting Agency Comment [id number] Procedure Note Nel Abdi MD PhD - 05/24/2023 EXAMINATION: CT ANGIOGRAM RUNOFF W CONTRAST INDICATION: Claudication or leg ischemia. Right popliteal arteryocclusion. TECHNIQUE: Images of the abdomen, pelvis, and bilateral lower extremitieswere obtained in the arterial phase following intravenous contrastadministration. Coronal and sagittal reformats were generated. 3Dpostprocessed reformats were also created. COMPARISON: None available. FINDINGS: LOWER THORAX: The visualized lung bases are clear. VASCULAR: Examination is somewhat limited due to streak artifact from bilateral kneeprostheses. Aorta: The included distal abdominal aorta is normal in caliber withoutdissection. Common iliac arteries: Patent and normal in caliber bilaterally. External iliac arteries: Patent and normal in caliber bilaterally. Internal iliac arteries: Patent and normal in caliber bilaterally. Right SET UP / OPERATOR: Patent. Right PFA: Patent. Right SFA: Patent. Right popliteal artery: Limited evaluation due to streak artifact fromknee prosthesis, however there is a small segment with a completeocclusion immediately before the bifurcation. Right posterior tibial artery: Patent to the level of the foot. Right anterior tibial artery: Occluded at the level of the high anklewithout distal reconstitution. Right peroneal artery: Occluded at the distal third fibular without distalreconstitution. Left SET UP / OPERATOR: Patent. Left PFA: Patent. Left SFA: Patent. Left popliteal artery: Patent. Left posterior tibial artery: Patent to the level of the foot. Left anterior tibial artery: Patent to the level of the foot. Left peroneal artery: Patent the level of the high ankle without distalreconstitution. PARTIALLY IMAGED NONVASCULAR PELVIS: KIDNEYS/URETERS: Partially visualized ill-defined 7.0 x 5.3 cmheterogeneous mass within the left upper pole. Retroaortic renal vein. GI TRACT: No distention or wall thickening in the partially imaged GItract. Partially imaged colonic diverticulosis. PERITONEUM/RETROPERITONEUM: No ascites or free air. LYMPH NODES: Prominent aortocaval lymph nodes. PELVIC ORGANS/BLADDER: Unremarkable. BONES AND SOFT TISSUES: Degenerative changes in the partially visualizedspine. OTHER: There is no abnormality within the lower extremity softtissue/musculature. IMPRESSION: 1. Patent lower abdominal vasculature with patent three-vessel runoff tothe left foot. 2. Small occluded segment of the right popliteal artery immediatelybefore the bifurcation. 3. Short occluded segment at the proximal right anterior tibial artery. 4. The right peroneal artery is occluded at the level of the distalfibula respectively. 5. Limited evaluation of patency of the right posterior tibial artery dueto extensive calcifications. 6. Partially visualized and incompletely characterize ill-defined 7.0 x5.3 cm heterogeneous mass within the left upper pole. A dedicated renalMRI is recommended for further assessment. 7. Prominent aortocaval lymph nodes are indeterminate given theaforementioned findings. COMMUNICATION: Findings were discussed by Nel Abdi MD with Dr. Khoury on :28 AM I, Nel Abdi, have reviewed the examination and concur with thefindings as reported or so edited. Trainee: Orion Malloy If this radiology report contains a blank impression section, it is anincomplete radiology report. Please contact the interpreting radiologistor applicable radiology division as soon as possible to obtain thecompleted interpretation. Workstation ID: [id number] Up-to-date CT equipment and radiation dose reduction techniques wereemployed. CTDIvol: 2.4 - 27.8 mGy. DLP: 3005 mGy-cm. Cristian Segal MD IMG CT PROCEDURES Final Resul t from Last 3 Months or Most Recently Relevant to Health Maintenance Insurance [facility] Advance Directives Documents on File Type Date Recorded Patient Pill Coater Expl anation Health Care Proxy 05/25/2023 12:33 PM Stephanie Perez 03-1 * Full Code (Latest Code Status on File) Date Activated Date Inactivated Comments 05/24/2023 8:34 PM 05/30/2023 5:39 PM Healthcare Agents on File Name Relationship Healthcare Agent Relationshi p Communication Stephaniemc Perez Spouse Health Care Agent Care Teams Real Estate Instructor Relationship Specialty Start Date End Date Corona Starr [address] [place] [address] [place] [address] PCP - General Internal Medicine 05/23/23
--- OUTSIDE RECORDS SUMMARY | 2024-06-15 13:34 | XMS_ITS | Referral Summary ---
Author Organization [facility] Address [address] [place] [address] Care Team Providers Care Technical Communicator Name Role Phone MattyCorona Primary Care Provider [phone] Allergies Active Allergy Reactions Criticality Noted Date [...] 08/01/2023 11:08 AM EDT Plan of Treatment Not on file Medical Devices Implanted Type Area Workforce Advisor Device Identifier Shelf Expiration Date Model / Serial / Lot System Closure And Repair Suture-Mediated Perclose Prostyle - [id number] Implanted:Qty: 1 on 05/25/2023 by Marvin Pack MD at [facility] Implant [employer] [id number] 02/10/2025 [id number] / / [id number] Procedures * Due to [place] [employer] law, this organization might not be sharing negative HIV tests. Procedure Name Priority Date/Time Associated Diagnosis Comments CT ANGIOGRAM RUNOFF W CONTRAST STAT 05/24/2023 6:30 AM EDT from Last 3 Months or Most Recently Relevant to Health Maintenance Results * Due to [place] [employer] law, this organization might not be sharing [...] obtain the completed interpretation. ? Workstation ID: [id number] Up-to-date CT equipment and radiation dose reduction [...] ??Patent and normal in caliber bilaterally. Right CERTIFIED PHYSICIAN'S ASSISTANT: ??Patent. Right PFA: Patent. Right SFA: Patent. [...] distal third fibular without distal reconstitution. Left CERTIFIED PHYSICIAN'S ASSISTANT: ??Patent. Left PFA: Patent. Left SFA: Patent. [...] lower extremity soft tissue/musculature. Resulting Agency Comment [id number] Procedure Note Nel Abdi MD PhD - [...] Patent and normal in caliber bilaterally. Right CERTIFIED PHYSICIAN'S ASSISTANT: Patent. Right PFA: Patent. Right SFA: Patent. [...] the distal third fibular without distalreconstitution. Left CERTIFIED PHYSICIAN'S ASSISTANT: Patent. Left PFA: Patent. Left SFA: Patent. [...] Nel Abdi MD with Dr. Khoury on 0:28 AM I, Nel Abdi, have reviewed the examination and concur with thefindings as reported or so edited. Trainee: Orion Malloy If this radiology report contains a blank impression section, it is anincomplete radiology report. Please contact the interpreting radiologistor applicable radiology division as soon as possible to obtain thecompleted interpretation. Workstation ID: [id number] Up-to-date CT equipment and radiation dose reduction techniques wereemployed. CTDIvol: 2.4 - 27.8 mGy. DLP: 3005 mGy-cm. Cristian Segal MD IMG CT PROCEDURES Final Resul t from Last 3 Months or Most Recently Relevant to Health Maintenance Insurance [facility] Advance Directives Documents on File Type Date Recorded Patient Ce[employer] & [employer] Founder Expl anation Health Care Proxy 05/25/2023 12:33 PM Stephanie Perez - * Full Code (Latest Code Status on File) Date Activated Date Inactivated Comments 05/24/2023 8:34 PM 05/30/2023 5:39 PM Healthcare Agents on File Name Relationship Healthcare Agent Relationshi p Communication Stephanie Will Spouse Health Care Agent Care Teams Technical Communicator Relationship Specialty Start Date End Date Corona Starr [address] [place] [address] [place] [address] PCP - General Internal Medicine 05/23/23
--- OUTSIDE RECORDS SUMMARY | 2024-06-15 13:35 | XMS_ITS | Clinical Summary ---
Author Organization [facility] Address [address] [address] Phone Care Team Providers Care Pipe Out Worker Name Role Phone Unavailable Primary Care Provider Unavailabl e Social History Tobacco Use Types Packs/Day Years Used Date Smoking Tobacco: Never Assessed Education Answer Date Recorded Are you interested in more education? Not on santa e 07/09/2022 Are you concerned about learning? Not on file 07/09/2022 No 07/09/2022 No 07/09/2022 Digital Access Answer Date Recorded No 08/07/2022 No 08/07/2022 No 08/07/2022 Reliable internet access at home? Not on file 08/07/2022 Device with a working camera? Not on file Sex and Gender Information Value Date Recorded Sex Assigned at Not on file Gender Identity Not on file Sexual Orientation Not on file Plan of Treatment Health Maintenance Due Date Last Done Comments Adult Td,Tdap Booster 1955 LIPID PANEL 1955 DEPRESSION SCREENING 1965 SMOKING Hx and SMOKELESS TOB ACCO SCREENING 1966 HEPATITIS C SCREENING 05/30/1971 COLOGUARD 1998 COLONOSCOPY 1998 COLORECTAL CANCER SCREENING 1998 FIT TEST 1998 FOBT 1998 SIGMOIDOSCOPY 1998 VIRTUAL COLONOSCOPY 1998 PNEUMOCOCCAL VACCINES (50+ y ears) (1 of 1 - PCV) 05/30/2003 ZOSTER VACCINES (1 of 2) 05/30/2003 INFLUENZA VACCINE (#1) 2023 COVID-19 VACCINE (2 - 2023-2 5 season) 2023 07/06/2020 RSV VACCINE (1 - 1-dose 75+ series) 2028 HEPATITIS A VACCINES Aged Out No long er eligible based on patient's age to complete this topic HIB VACCINES Aged Out No longer eligi ble based on patient's age to complete this topic MENINGOCOCCAL VACCINES (ACWY) Aged Out No longer eligible based on patient's age to complete this topic Medical Devices Not on file Will, Peter Personal/Family Self 1955 [address] [place] [address] Additional Source Comments The information contained in this document represents components of the legal health record. It is not the complete legal health record.[facility]
--- OUTSIDE RECORDS SUMMARY | 2024-06-15 13:35 | XMS_ITS | Patient Health Record ---
Author Organization [facility] Address [address] [place] [address] Care Team Providers Care Fruit Inspector Name Role Phone Corona Starr MD Primary Care Provider Miguelito Man Jr Unavailable [phone] Allergies Allergen (clinical drug ingredient) Drug/Non Drug Allergy documented on EMR Reaction Allergy Type Onset Date Status lisinopril Lisinopril Unknown Drug Allergy Activ e atorvastatin Lipitor Unknown Drug Allergy Acti ve Reason For Referral No Information Medications Medication SIG (Take, Route, Frequency, Duration) Notes Start Date End Date Status Probiotic - as directed Orally Active Vitamin D-3 25 MCG (1000 UT) 1 capsule Orally Once a day for 30 day(s) Active cloNIDine 0.1 MG/24HR 1 patch to skin Transdermal for 30 day(s) Active Irbesartan 300 MG 1 tablet Orally Once a day for 30 day(s) Active Pantoprazole Sodium 40 MG 1 tablet Orally Once a day for 30 day(s) Active Pravastatin Sodium 80 MG 1 tablet Orally Once a day for 30 day(s) Active Verapamil HCl ER 240 MG 1 tablet Orally Once a day for 30 day(s) Active Warfarin Sodium 5 MG 1 tablet Orally Onc e a day for 30 day(s) Tuesday & 1.5 tab Active Immunizations Vaccine Route Administration Date Status Comme nts Influenza Unknown 12/30/2021 Administered Social History Tobacco Use: Social History Observation Description Date Details (start date - stop date) Never Smoker NA - NA Tobacco Use/Smoking Question Answer Notes Patient is a nonsmoker Alcohol Screen Question Answer Notes Did you have a drink contain ing alcohol in the past year? Yes How often did you have a dri nk containing alcohol in the past year? 4 or more times a week (4 points) How many drinks did you have on a typical day when you were drinking in the past year? 3 or 4 drinks (1 point) How often did you have 6 or more drinks on one occasion in the past year? 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) Gastric polyps (K31.7) Active confirmed Problem 090169414 Gastroesophageal reflux disease, unspecified whether esophagitis present (K21.9) Active confirmed Plan Of Treatment Future Test Test Name Order Date UPPER GI ENDOSCOPY 04/14/2022 COLONOSCOPY 04/14/2022 Insurance Providers Payer Name Payer Address Payer Phone Subscriber Number Group Number Insured Name Patient Relationship to Insured Coverage Start Date Coverage End Date [facility] [address] [facility] [place] [phone] [id number] [place] Self - patient is the insured Medical (General) History Medical History History ICD Code Hypertension Atrial fibrillation Colonoscopy , nonspecific ileitis, dimunitive rectal tubular adenoma Elevated cholesterol Osteoarthritis Back pain Nocturia Elevated BMI Surgical History Surgery Date(Month/Year) Knee arthroplasties 5734-6802 Left hip arthroplasty Vocal cord biopsy Laminectomy L4-5
== END 2024-06-15 12:42 | disposition home or self-care (01) ==
PROVIDERS: PCP Internal Medicine; Visit Provider Nurse Practitioner Family
DX: S61.250A Open bite of right index finger without damage to nail, initial encounter (principal); W54.0XXA Bitten by dog, initial encounter

== ENCOUNTER 2024-06-15 11:32 | Outpatient (REF) | payer MEDICARE, SELFPAY ==
--- NOTE | ~2024-06-15 | XR_ITS ---
EXAMINATION: XR FINGERS RIGHT HISTORY: S61.250A - Open bite of right index finger without damage to nail COMPARISON: Comparison is made with the prior examination of the right hand dated 10/25/2014. FINDINGS: Three views of the right index finger are submitted. Osseous mineralization is normal. There is no fracture or dislocation. There is severe osteoarthritis of the DIP joint and mild osteoarthritis of the PIP joint, with joint space narrowing and osteophyte formation. There is diffuse soft tissue swelling. XR/XR finger RT min 2V IMPRESSION: Diffuse soft tissue swelling. Osteoarthritis as described. Electronically signed by: Adeel De La Fuente MD 06/15/2024 12:54 PM EDT
--- OUTSIDE RECORDS SUMMARY | 2024-06-15 14:10 | XMS_ITS | Referral Summary ---
Author Organization [facility] Address [address] [place] [address] Care Team Providers Care Bullet Assembly Press Setter Operator Name Role Phone MattyCorona Primary Care Provider Allergies Active Allergy Reactions Criticality Noted Date [...] on file Medical Devices Implanted Type Area Ep Tech Device Identifier Shelf Expiration Date Model / Serial / Lot System Closure And Repair Suture-Mediated Perclose Prostyle - [id number] Implanted:Qty: 1 on 05/25/2023 by Marvin Pack MD at [facility] Implant [employer] [id number] 02/10/2025 [id number] / / [id number] Procedures * Due to [place] [employer] law, this organization might not be sharing negative HIV tests. Procedure Name Priority Date/Time Associated Diagnosis Comments CT ANGIOGRAM RUNOFF W CONTRAST STAT 05/24/2023 6:30 AM EDT from Last 3 Months or Most Recently Relevant to Health Maintenance Results * Due to [place] [employer] law, this organization might not be sharing [...] obtain the completed interpretation. ? Workstation ID: [id number] Up-to-date CT equipment and radiation dose reduction [...] ??Patent and normal in caliber bilaterally. Right SELF SEALING FUEL TANK REPAIRER: ??Patent. Right PFA: Patent. Right SFA: Patent. [...] distal third fibular without distal reconstitution. Left SELF SEALING FUEL TANK REPAIRER: ??Patent. Left PFA: Patent. Left SFA: Patent. [...] lower extremity soft tissue/musculature. Resulting Agency Comment [id number] Procedure Note Nel Abdi MD PhD - [...] Patent and normal in caliber bilaterally. Right SELF SEALING FUEL TANK REPAIRER: Patent. Right PFA: Patent. Right SFA: Patent. [...] the distal third fibular without distalreconstitution. Left SELF SEALING FUEL TANK REPAIRER: Patent. Left PFA: Patent. Left SFA: Patent. [...] possible to obtain thecompleted interpretation. Workstation ID: [id number] Up-to-date CT equipment and radiation dose reduction techniques wereemployed. CTDIvol: 2.4 - 27.8 mGy. DLP: 3005 mGy-cm. Cristian Segal MD IMG CT PROCEDURES Final Resul t from Last 3 Months or Most Recently Relevant to Health Maintenance Insurance [facility] Advance Directives Documents on File Type Date Recorded Patient Light Technician Expl anation Health Care Proxy 05/25/2023 12:33 PM Stephanie Perez - * Full Code (Latest Code Status on File) Date Activated Date Inactivated Comments 05/24/2023 8:34 PM 05/30/2023 5:39 PM Healthcare Agents on File Name Relationship Healthcare Agent Relationshi p Communication Stephanie Will Spouse Health Care Agent Care Teams Bullet Assembly Press Setter Operator Relationship Specialty Start Date End Date Corona Starr [address] [place] [address] [place] [address] PCP - General Internal Medicine 05/23/23
--- OUTSIDE RECORDS SUMMARY | 2024-06-15 14:10 | XMS_ITS | Clinical Summary ---
Author Organization [facility] Address [address] [place] [address] Care Team Providers Care Copy Reader Name Role Phone MattyCorona Primary Care Provider [phone] Allergies Active Allergy Reactions Criticality Noted Date [...] this topic Medical Devices Implanted Type Area Wing Scorer Device Identifier Shelf Expiration Date Model / Serial / Lot System Closure And Repair Suture-Mediated Perclose Prostyle - [id number] Implanted:Qty: 1 on 05/25/2023 by Marvin Pack MD at [facility] Implant [employer] [id number] 02/10/2025 [id number] / / [id number] Procedures * Due to [place] law, this organization might not be sharing negative HIV tests. Procedure Name Priority Date/Time Associated Diagnosis Comments CT ANGIOGRAM RUNOFF W CONTRAST STAT 05/24/2023 6:30 AM EDT from Last 3 Months or Most Recently Relevant to Health Maintenance Results * Due to [place] law, this organization might not be sharing [...] obtain the completed interpretation. ? Workstation ID: [id number] Up-to-date CT equipment and radiation dose reduction [...] ??Patent and normal in caliber bilaterally. Right CROSS ROLLER: ??Patent. Right PFA: Patent. Right SFA: Patent. [...] distal third fibular without distal reconstitution. Left CROSS ROLLER: ??Patent. Left PFA: Patent. Left SFA: Patent. [...] lower extremity soft tissue/musculature. Resulting Agency Comment [id number] Procedure Note Nel Abdi MD PhD - [...] Patent and normal in caliber bilaterally. Right CROSS ROLLER: Patent. Right PFA: Patent. Right SFA: Patent. [...] the distal third fibular without distalreconstitution. Left CROSS ROLLER: Patent. Left PFA: Patent. Left SFA: Patent. [...] possible to obtain thecompleted interpretation. Workstation ID: [id number] Up-to-date CT equipment and radiation dose reduction techniques wereemployed. CTDIvol: 2.4 - 27.8 mGy. DLP: 3005 mGy-cm. Cristian Segal MD IMG CT PROCEDURES Final Resul t from Last 3 Months or Most Recently Relevant to Health Maintenance Insurance [facility] Advance Directives Documents on File Type Date Recorded Patient City Carrier Expl anation Health Care Proxy 05/25/2023 12:33 PM Stephanie Perez 03-1 * Full Code (Latest Code Status on File) Date Activated Date Inactivated Comments 05/24/2023 8:34 PM 05/30/2023 5:39 PM Healthcare Agents on File Name Relationship Healthcare Agent Relationshi p Communication Stephaniemc Perez Spouse Health Care Agent Care Teams Copy Reader Relationship Specialty Start Date End Date Corona Starr [address] [place] [address] [place] [address] PCP - General Internal Medicine 05/23/23
--- OUTSIDE RECORDS SUMMARY | 2024-06-15 14:10 | XMS_ITS | Clinical Summary ---
Author Organization [facility] Address [address] [address] Phone Care Team Providers Care Silver Buffer Name Role Phone Unavailable Primary Care Provider [...] file Will, Peter Personal/Family Self 1955 [address] [place] [address] Additional Source Comments The information contained in this document represents components of the legal health record. It is not the complete legal health record.[facility]
== END 2024-06-15 11:33 | disposition home or self-care (01) ==
LOC: HO.HMGCX 11:32
PROVIDERS: PCP Internal Medicine; Visit Provider Nurse Practitioner Family
DX: S61.250A Open bite of right index finger without damage to nail, initial encounter (principal); W54.0XXA Bitten by dog, initial encounter
CPT/HCPCS: 73140; 99212

== ENCOUNTER → 2024-06-15 12:18 | Outpatient (BNV) | payer MEDICARE, SELFPAY | PROVIDERS: PCP Internal Medicine; Visit Provider Radiology Diagnostic Radiology | DX: M19.041 Primary osteoarthritis, right hand (principal); R22.31 Localized swelling, mass and lump, right upper limb | CPT/HCPCS: 73140 ==

== ENCOUNTER 2024-06-15 12:41 | Outpatient (REF) | payer MEDICARE, SELFPAY | END 2024-06-15 12:42 | disposition home or self-care (01) | LOC: HO.LAB 12:41 | PROVIDERS: Visit Provider Nurse Practitioner Family | DX: S61.250A Open bite of right index finger without damage to nail, initial encounter (principal); W54.0XXA Bitten by dog, initial encounter; Y93.9 Activity, unspecified; Y92.9 Unspecified place or not applicable; Y99.9 Unspecified external cause status | CPT/HCPCS: 87070; 87077; 87205 ==

== ENCOUNTER 2024-06-25 10:00 | Outpatient (RCR) | payer MEDICARE, SELFPAY | END 2024-06-27 05:48 | disposition home or self-care (01) | LOC: HO.CR 10:00 | PROVIDERS: PCP Internal Medicine; Visit Provider Thoracic Surgery (Cardiothoracic Vascular Surgery) | DX: Z95.1 Presence of aortocoronary bypass graft (principal) | CPT/HCPCS: 93797; 93798 ==

== ENCOUNTER 2024-07-26 14:12 | Outpatient (AMB) | payer MEDICARE, SELFPAY ==
[2024-07-26 14:14] VITALS: BP 131/81; PULSE 80; RESP 14; TEMP 36.7; O2SAT 99; BMI 33.8
--- NOTE | 2024-07-26 14:14 | MHC.PC.OV ---
Vital Signs 07/26/24 14:14 Height 6 ft Weight 249 lb BMI 33.8 BP 131/81 Respiration 14 Pulse 80 Pulse Source Pulse Oximeter Temp 98.1 F Temp Source Temporal Artery Scan Pulse Oximetry (%) 99 Oxygen Delivery Method Room Air Intake Visit Reasons: Routine Load Planner Required: No Accompanied by: Spouse Allergies aspirin [ASPIRIN] Adverse Reaction (Unknown, Verified 07/26/24 14:15) PT STATES HE CAN'T TAKE BECAUSE HE IS ON COUMADIN lisinopril [LISINOPRIL] Adverse Reaction (Unknown, Verified 07/26/24 14:15) COUGH NSAIDS (Non-Steroidal Anti-Inflamma [NSAIDS (NON-STEROIDAL ANTI-INFLAMMA] Adverse Reaction (Unknown, Verified 07/26/24 14:15) PT STATES HE CAN'T TAKE BECAUSE HE IS ON COUMADIN sensitive to lisinopril Adverse Reaction (Mild, Uncoded 07/26/24 14:15) Cough can't take ASA or NSAIDS Adverse Reaction (Unknown, Uncoded 07/26/24 14:15) Unknown Tobacco use date assessed: 07/26/24 Fall risk assessment: No Falls in past year Last assessed Fall Risk: 07/26/24 Dental Screening Dental Screen Date: 07/26/24 Did you have a dental visit in the last 12 months?: Yes Did you have a dental problem in the last 6 months where you did not have access to dental care?: No Was dental information given to patient?: Patient has dentist HPI HPI Comments History of Present Illness Details The patient is a 69 year old male with a past medical history of CAD s/p CABG 09/2023, afib on AC, obesity, left renal cancer, OA b/l knee replacement, colon polyps presenting for follow up. Last seen by pcp in Mar. CV: Follows with cardiology. He is on entresto, coreg, digoxin, clonidine, lasix, atorvastatin, ASA, eliquis, farxiga. Following with Dr Elena. Follows with Yee Cardenas. Blood pressure controlled. denies chest pain Urology: [facility] Follows up every six months. During imaging a cyst of the pancreas was noted GERD: On pantoprazole. Patient has frequent dyspepsia, nausea. Bilateral shoulder pain, left>right. Decreased range of motion Patient has lump/mass of left head, and left lower posterior thigh Colonoscopy: 05/22/2022. ROS see HPI PHYSICAL EXAM: GENERAL: Alert and oriented x 3. NAD EYES: EOMI. Anicteric. HENT: Moist mucous membranes. No scleral icterus. No cervical lymphadenopathy. LUNGS: Clear to auscultation bilaterally. CARDIOVASCULAR: Regular rate and rhythm. ABDOMEN: Soft, non-tender +bs EXTREMITIES: No edema. Non-tender. SKIN: No rashes or lesions. Warm. NEUROLOGIC: No focal neurological deficits. CN II-XII grossly intact PSYCHIATRIC: Cooperative. Appropriate mood and affect [facility] Medical History Bleeding hemorrhoids Left hip pain Nocturia Hx of osteoarthritis History of hyperlipidemia Back pain Hx of atrial fibrillation without current medication Arrhythmia HTN (hypertension) Surgical History History of hip surgery Hx of laminectomy Hx of colonoscopy (~05/25/22) Family History Father No problems noted. Mother No problems noted. Social History Housing: House Alcohol intake: current Alcohol intake frequency: does not drink Patient Tobacco Use Status: Former Tobacco user Cigarette Packs Per Day: 1 Cigarettes Per Day: 20.0 Years Smoked: 34 service: No Current occupational status: retired Cognitive needs: No Hearing needs: No Vision needs: Yes (rx glasses) Questionnaire PHQ-9 Over the last 2 weeks, how often have you been bothered by any of the following problems? 1. Little interest or pleasure in doing things: not at all 2. Feeling down, depressed, or hopeless: several days 3. Trouble falling or staying asleep, or sleeping too much: not at all 4. Feeling tired or having little energy: several days 5. Poor appetite or overeating: not at all 6. Feeling bad about yourself - or that you are a failure or have let yourself or your family down: not at all 7. Trouble concentrating on things, such as reading the newspaper or watching television: not at all 8. Moving or speaking so slowly that other people could have noticed. Or the opposite - being so fidgety or restless that you have been moving around a lot more than usual: not at all 9. Thoughts that you would be better off or of hurting yourself in some way: not at all Total score: 2 Depression Screening Interpretation: Negative Depression Screening Done: Yes 59328 - PHQ-9 Billing: Yes Source: Developed by Drs. Adeel Shaw, Laine Ayala, Stan Hurd and colleagues, with an educational shanda from [employer]. Thrive Questionnaire Date Thrive assessed: 07/26/24 I am a: Patient What is your living situation today?: I have a steady place to live Within the past 12 months, did the food you bought not last and you didn't have the money to get more?: Never true Within the past 12 months, did you worry whether your food would run out before you got money to buy more?: Never true Do you have trouble paying for medicines?: No Do you have trouble getting transportation to medical appointments?: No Do you have trouble paying your heating and electricity bill?: No Do you have trouble taking care of your child, family member or friend?: No Do you have trouble with day-to-day activities such as bathing, preparing meals, shopping, managing finances, etc.?: No Are you currently unemployed and looking for a job?: No Are you interested in more education?: No Please select the resources that you would like help with: None THRIVE Score: 0 AUDIT C Alcohol Use Questionnaire (AUDIT-C) 1. How often do you have a drink containing alcohol?: Never 3. How often do you have six or more drinks on one occasion?: Never Total Score: 0 PAUL-7 AMB Questionnaire PAUL-7 Date PAUL - 7 assessed: 07/26/24 Feeling nervous, anxious, or on edge: 0 = Not at all Not being able to stop or control worryin = Several days Worrying too much about different things: 1 = Several days Trouble relaxin = Not at all Being so restless that it is hard to sit still: 0 = Not at all Becoming easily annoyed or irritable: 0 = Not at all Feeling afraid as if something awful might happen: 0 = Not at all Total PAUL-7 score (0-4 normal; 5-9 mild; 10-14 moderate; 15-21 severe): 2 Source: Developed by Drs. Adeel Shaw, Laine Ayala, Stan Hurd and colleagues, with an educational shanda from [employer]. Physical exam (Primary Care) Vital Signs: Last Vital Signs Temp 98.1 F 07/26/24 14:14 Pulse 80 07/26/24 14:14 Resp 14 07/26/24 14:14 BP 131/81 07/26/24 14:14 Pulse Ox 99 07/26/24 14:14 Oxygen Delivery Method Room Air 07/26/24 14:14 BMI result Body Mass Index 33.8 Tobacco/Smoking Status: Tobacco use Status Tobacco use date assessed 07/26/24 07/26/24 14:30 Patient Tobacco Use Status Former Tobacco user 07/26/24 14:30 PHQ-9: PHQ-9 Score PHQ-9: Total score 2 07/26/24 16:09 Depression Screening Interpretation: Negative Thrive Assessment: Date of Thrive Assessment Date Thrive assessed 07/26/24 07/26/24 14:30 Coding Level of Care Code New Pt Level 5 (27096) Complex EM visit Add On G2211 Diagnoses Shoulder impingement M25.819 Chronic pain of both shoulders M25.511; M25.512; G89.29 Chronicity: chronic Mass of left lower leg R22.42 Scalp mass R22.0 Pancreatic cyst K86.2 Coronary artery disease involving [place] coronary artery of [place] heart, unspecified whether angina present I25.10 Coronary Disease-Associated Artery/Lesion type: [place] artery [place] vs. transplanted heart: bear [place] heart Associated angina: unspecified whether angina present Additional Codes PHQ-9 - 17097 - PHQ-9 Billing: Yes ([id number]) Assessment & Plan Assessment & Plan (1) Shoulder impingement: Code(s): M25.819 - Other specified joint disorders, unspecified shoulder Category: Medical (2) Bilateral shoulder pain: Code(s): M25.511 - Pain in right shoulder; M25.512 - Pain in left shoulder Category: Medical Qualifiers: Chronicity: chronic Qualified Code(s): M25.511 - Pain in right shoulder; M25.512 - Pain in left shoulder; G89.29 - Other chronic pain (3) Mass of left lower leg: Code(s): R22.42 - Localized swelling, mass and lump, left lower limb Category: Medical (4) Scalp mass: Code(s): R22.0 - Localized swelling, mass and lump, head Category: Medical (5) Pancreatic cyst: Code(s): K86.2 - Cyst of pancreas Category: Medical (6) CAD (coronary artery disease): Code(s): I25.10 - Atherosclerotic heart disease of [place] coronary artery without angina pectoris Category: Medical Qualifiers: Coronary Disease-Associated Artery/Lesion type: [place] artery [place] vs. transplanted heart: [place] heart Associated angina: unspecified whether angina present Qualified Code(s): I25.10 - Atherosclerotic heart disease of [place] coronary artery without angina pectoris Plan 69 y/o to establish care past medical, surgical, social reviewed Pancreatic cyst-MRI pancrease protocol Shoulder pain-xr, referral to orthopedic Scalp cyst, mass of left thigh-us ordered Dyspepsia, nausea-referral to GI placed Labs ordered Orders: Orders Prostate Specific Antigen 07/26/24 I25.10 - Atherosclerotic heart disease of [place] coronary artery without angina pectoris, Z12.5 - Encounter for screening for malignant neoplasm of prostate, Z86.39 - Personal history of other endocrine, nutritional and metabolic disease Basic Metabolic Panel 07/26/24 K86.2 - Cyst of pancreas US soft tiss head and/or neck 07/26/24 R22.0 - Localized swelling, mass and lump, head TSH reflex Free T4 07/26/24 I25.10 - Atherosclerotic heart disease of [place] coronary artery without angina pectoris, Z12.5 - Encounter for screening for malignant neoplasm of prostate, Z86.39 - Personal history of other endocrine, nutritional and metabolic disease MR abdomen wo/w con 07/26/24 K86.2 - Cyst of pancreas XR Shoulder German min 2V 07/26/24 M25.511 - Pain in right shoulder, M25.512 - Pain in left shoulder, M25.819 - Other specified joint disorders, unspecified shoulder US Extremity Nonvas Limited LT 07/26/24 R22.0 - Localized swelling, mass and lump, head, R22.42 - Localized swelling, mass and lump, left lower limb Hemoglobin A1c 07/26/24 R73.09 - Other abnormal glucose Referrals Gastroenterology Referral R10.13 - Epigastric pain, R11.0 - Nausea Orthopedics Referral M25.511 - Pain in right shoulder, M25.512 - Pain in left shoulder, M25.819 - Other specified joint disorders, unspecified shoulder Medications: New amoxicillin 2,000 mg (4 x 500 mg) PO ONCE PRN 20 tabs 1RF dental work tramadol 50 mg PO Q8H PRN 20 tabs 0RF pain
--- OUTSIDE RECORDS SUMMARY | 2024-07-26 14:52 | XMS_ITS | Clinical Summary ---
Author Organization [facility] Address [address] [place] [address] Care Team Providers Care Mattress And Foundation Sewer Name Role Phone MattyCorona Primary Care Provider [phone] Allergies Active Allergy Reactions Criticality Noted Date [...] Screening 03/14/2024 Influenza Vaccine (Season Ended) 2024 Hepatitis B Vaccines Aged Out No long er eligible based on patient's age to complete this topic Medical Devices Implanted Type Area Religious Educator Device Identifier Shelf Expiration Date Model / Serial / Lot System Closure And Repair Suture-Mediated Perclose Prostyle - [id number] Implanted:Qty: 1 on 05/25/2023 by Marvin Pack MD at [facility] Implant [employer] [id number] 02/10/2025 [id number] / / [id number] Insurance [facility] Advance Directives Documents on File Type Date Recorded Patient Web Mobile Designer Expl anation Health Care Proxy 05/25/2023 12:33 PM Stephanie Perez - * Full Code (Latest Code Status on File) Date Activated Date Inactivated Comments 05/24/2023 8:34 PM 05/30/2023 5:39 PM Healthcare Agents on File Name Relationship Healthcare Agent Relationshi p Communication Stephanie Will Spouse Health Care Agent Care Teams Mattress And Foundation Sewer Relationship Specialty Start Date End Date Corona Starr [address] [place] [address] dr Isabel Hall, [place] [address] PCP - General Internal Medicine 05/23/23
--- OUTSIDE RECORDS SUMMARY | 2024-07-26 14:52 | XMS_ITS | Clinical Summary ---
Author Organization [facility] Address [address] [address] Phone Care Team Providers Care Cable Operator Name Role Phone Unavailable Primary Care Provider [...] Recorded Sex Assigned at Not on file Legal Sex Male 9:57 PM EDT Gender Identity Not on file [...] this topic Medical Devices Not on file Insurance [employer] POS PPO REPLACEMENT [employer] PPO [place]PLACEMENT [employer] PPO REPLACEMENT [employer] [place] PPO REPLACEMENT [employer] [place] PPO REPLACEMENT [employer] PPO REPLACEMENT Additional Source Comments The information contained in this document represents components of the legal health record. It is not the complete legal health record.[facility]
--- OUTSIDE RECORDS SUMMARY | 2024-07-26 14:52 | XMS_ITS | Referral Summary ---
Author Organization [facility] Address [address] [place] [address] Care Team Providers Care Learning Designer Name Role Phone aMttyCorona Primary Care Provider [phone] Allergies Active Allergy Reactions Criticality Noted Date [...] on file Medical Devices Implanted Type Area Minesweeping Officer Device Identifier Shelf Expiration Date Model / Serial / Lot System Closure And Repair Suture-Mediated Perclose Prostyle - [id number] Implanted:Qty: 1 on 05/25/2023 by Marvin Pack MD at [facility] Implant [employer] [id number] 02/10/2025 [id number] / [id number] Insurance [facility] Advance Directives Documents on File Type Date Recorded Patient Lead Investigator Expl anation Health Care Proxy 05/25/2023 12:33 PM Stephanie Will 03-1 * Full Code (Latest Code Status on File) Date Activated Date Inactivated Comments 05/24/2023 8:34 PM 05/30/2023 5:39 PM Healthcare Agents on File Name Relationship Healthcare Agent Relationshi p Communication Stephanie Perez Spouse Health Care Agent Care Teams Learning Designer Relationship Specialty Start Date End Date Corona Starr [address] [place] [address] [place] [address] PCP - General Internal Medicine 05/23/23
--- OUTSIDE RECORDS SUMMARY | 2024-07-26 14:52 | XMS_ITS | Patient Health Record ---
Author Organization [facility] Address [address] [place] [address] Care Team Providers Care Principal Embedded Software Engineer Name Role Phone Corona Starr MD Primary Care Provider Miguelito Man Jr Unavailable Allergies Allergen (clinical drug ingredient) Drug/Non Drug [...] Problem Status W/U Status Risk Notes Problem [id number] Colon cancer screening (Z12.11) Active confirmed Problem 921658405 Bloating (R14.0) Active confirmed Problem Gastroesophageal reflux disease (157200081) Gastroesophageal reflux disease (K21.9) Active confirmed Problem Benign neoplasm of stomach (64978227) Gastric polyps (K31.7) Active confirmed Problem 510056748 Gastroesophageal reflux disease, unspecified whether esophagitis present (K21.9) Active confirmed Plan Of Treatment Future Test Test Name Order Date UPPER GI ENDOSCOPY 04/14/2022 COLONOSCOPY 04/14/2022 Insurance Providers Payer Name Payer Address Payer Phone Subscriber Number Group Number Insured Name Patient Relationship to Insured Coverage Start Date Coverage End Date [facility] [address] [facility] [place] [phone] [id number] [place] Self - patient is the insured Medical (General) History Medical History History ICD Code Hypertension Atrial fibrillation Colonoscopy , nonspecific ileitis, dimunitive rectal tubular adenoma Elevated cholesterol Osteoarthritis Back pain Nocturia Elevated BMI Surgical History Surgery Date(Month/Year) Knee arthroplasties 8550-6779 Left hip arthroplasty Vocal cord biopsy Laminectomy L4-5
== END 2024-07-26 15:02 | disposition home or self-care (01) ==
LOC: HO.HMCHD 14:13
PROVIDERS: PCP Internal Medicine; Visit Provider Internal Medicine
DX: M25.811 Other specified joint disorders, right shoulder (principal); M25.511 Pain in right shoulder; M25.512 Pain in left shoulder; G89.29 Other chronic pain; R22.42 Localized swelling, mass and lump, left lower limb; R22.0 Localized swelling, mass and lump, head; K86.2 Cyst of pancreas; I25.10 Atherosclerotic heart disease of native coronary artery without angina pectoris; M25.812 Other specified joint disorders, left shoulder

== ENCOUNTER → 2024-07-26 14:12 | Outpatient (BNVA) | payer MEDICARE, SELFPAY | PROVIDERS: PCP Internal Medicine; Visit Provider Internal Medicine | DX: M25.819 Other specified joint disorders, unspecified shoulder (principal); M25.511 Pain in right shoulder; M25.512 Pain in left shoulder; G89.29 Other chronic pain; R22.42 Localized swelling, mass and lump, left lower limb; R22.0 Localized swelling, mass and lump, head; K86.2 Cyst of pancreas; I25.10 Atherosclerotic heart disease of native coronary artery without angina pectoris; I48.91 Unspecified atrial fibrillation; K21.9 Gastro-esophageal reflux disease without esophagitis; Z85.528 Personal history of other malignant neoplasm of kidney; Z79.01 Long term (current) use of anticoagulants; Z79.82 Long term (current) use of aspirin; Z79.899 Other long term (current) drug therapy; Z96.653 Presence of artificial knee joint, bilateral; Z95.1 Presence of aortocoronary bypass graft; Z90.5 Acquired absence of kidney | CPT/HCPCS: 96127; 99202 ==

== ENCOUNTER 2024-08-03 13:40 | Outpatient (REF) | payer MEDICARE, SELFPAY ==
--- NOTE | ~2024-08-03 | XR_ITS ---
EXAMINATION: XR SHOULDER, GERMAN CLINICAL INFORMATION: M25.819 - Other specified joint disorders, unspecified shoulder COMPARISON: None available. TECHNIQUE: AP external rotation, Grashey, scapular Y, and axillary views of the left shoulder. FINDINGS: RIGHT SHOULDER: Normal bone mineralization. No fracture, dislocation, or suspicious bone lesion. Normal alignment. The glenohumeral joint demonstrates mild to moderate degenerative arthritis. The AC joint demonstrates moderate spurring, with significant undersurface spurs. There is a type II acromion. There is mild to moderate undersurface spurring. The subacromial space is preserved. There is subtle calcification of the supraspinatus tendon abutting the greater tuberosity. Remainder of the soft tissue and bony structures appear normal. LEFT SHOULDER: Normal bone mineralization. No fracture, dislocation, or suspicious bone lesion. Normal alignment. The glenohumeral joint demonstrates mild to moderate degenerative arthritis. There is undersurface spurring. The AC joint demonstrates moderate spurring, with significant undersurface spurs. There is a a type II acromion. There is mild undersurface spurring. The subacromial space is preserved. Remainder of the soft tissue and bony structures appear normal. XR/XR Shoulder German min 2V IMPRESSION: 1. Mild to moderate bilateral glenohumeral joint osteoarthrosis. 2. Moderate bilateral AC joint osteoarthrosis. 3. There is undersurface spurring of the acromion right greater than left. 4. There is calcific tendinopathy of the right rotator cuff. Electronically signed by: Cedric Moore MD 08/03/2024 02:32 PM EDT
--- OUTSIDE RECORDS SUMMARY | 2024-08-03 13:46 | XMS_ITS ---
Author Organization [facility] Address [address] [place] [address] Care Team Providers Care Wire Bound Box Machine Operator Name Role Phone Bibiana Cho M.D. Primary Care Provider Gordo Banuelos Jr, Miguelito Knapp [phone] REASON FOR VISIT nausea Encounters Encounter Location Date Provider Diagnosis [facility] [address] [place] [address] 08/02/2024 Miguelito Banuelos Jr Plan Of Treatment Next Appt Details Provider Name:Miguelito kapadia Jr, 09/19/2024 11:20:00 AM, [address], [address], [place], [address], Progress Notes * LOS DEDOB:1955 ([age] yo M)Acc No.[id number]:08/02/2024 Patient:?LOS DE :1955???Age:69 Y???Sex:Male Address:[facility] [place] [address] * * Date:?
[2024-08-03 17:00] LABS: Anion Gap 12 (12-20); Blood Urea Nitrogen 27 mg/dL (9-16); Calcium 9.3 mg/dL (8.4-10.2); Carbon Dioxide 26 mmol/L (22-29); Chloride 108 mmol/L (96-108); Estimated Glomerular Filt Rate 36; Glucose Random 82 mg/dL (60-115); Potassium 4.2 mmol/L (3.3-5.1); Sodium 142 mmol/L (135-145)
[2024-08-03 17:06] LABS: Estimated Average Glucose 114 mg/dL; Hemoglobin A1C 127.8089 umol/L; Hemoglobin A1c % 5.6 % (<6.0); Total Hemoglobin (HGBA1C) 3423.5649 umol/L
[2024-08-03 17:17] LABS: Prostate Specific Antigen 3.33 ng/mL (<0.05-4.0)
[2024-08-03 17:18] LABS: TSH reflex Free T4 1.69 uIU/mL (0.32-4.0)
== END 2024-08-03 13:41 | disposition home or self-care (01) ==
LOC: HO.HMGCX 13:40
PROVIDERS: PCP Internal Medicine; Visit Provider Internal Medicine
DX: M25.511 Pain in right shoulder (principal); M25.512 Pain in left shoulder; M25.819 Other specified joint disorders, unspecified shoulder; R73.09 Other abnormal glucose; K86.2 Cyst of pancreas; Z12.5 Encounter for screening for malignant neoplasm of prostate; Z86.39 Personal history of other endocrine, nutritional and metabolic disease; I25.10 Atherosclerotic heart disease of native coronary artery without angina pectoris
CPT/HCPCS: 36415; 73030; 80048; 83036; 84153; 84443

== ENCOUNTER → 2024-08-03 13:59 | Outpatient (BNV) | payer MEDICARE, SELFPAY | PROVIDERS: PCP Internal Medicine; Visit Provider Radiology Diagnostic Radiology | DX: M19.011 Primary osteoarthritis, right shoulder (principal); M19.012 Primary osteoarthritis, left shoulder; M75.31 Calcific tendinitis of right shoulder; M25.711 Osteophyte, right shoulder; M25.712 Osteophyte, left shoulder | CPT/HCPCS: 73030 ==

== ENCOUNTER 2024-08-11 15:17 | Outpatient (REF) | payer MEDICARE, SELFPAY ==
--- NOTE | ~2024-08-11 | MR_ITS ---
EXAMINATION: MR ABDOMEN WITHOUT THEN WITH IV CONTRAST HISTORY: K86.2 - Cyst of pancreas COMPARISON: There are no prior studies available for comparison. TECHNIQUE: Axial in and out of phase T1-weighted gradient echo, axial diffusion weighted, and axial and coronal HASTE T2 with fat saturation images were obtained through the abdomen. Subsequently, fat suppressed axial and coronal T1-weighted images were obtained after the intravenous administration of 10 mL Gadavist. FINDINGS: Lower chest: The patient is status post median sternotomy. There is left atrial enlargement. Liver: There is no loss of signal intensity in the liver on opposed phase imaging to suggest steatosis. There is no enhancing liver mass. The hepatic and portal veins are patent. There is no intra- or extrahepatic biliary dilatation. Gallbladder: No gallstones are identified. Spleen: The spleen is unremarkable. Pancreas: There is a 9 mm cyst of the pancreatic tail. There may be additional smaller cysts of the body and tail. No associated enhancement is seen. The pancreatic duct is normal in caliber. Adrenals: The adrenal glands are unremarkable. Kidneys: There are multiple right renal cysts measuring up to 1.9 cm in size. There is no hydronephrosis. There is a hypertrophied column of Toby. The left kidney is surgically absent. Lymph nodes: There is no retroperitoneal lymphadenopathy in the upper abdomen. Fluid: There is no ascites in the upper abdomen. Visualized bowel: The visualized bowels loops are unremarkable in appearance. Visualized bones: The visualized bones demonstrate normal marrow signal intensity. MR/MR abdomen wo/w con IMPRESSION: 1. 9 mm cyst of the pancreatic tail which may represent an IPMN. There may be additional smaller cysts in the body and tail. Follow-up is recommended. 2. Status post left nephrectomy. Multiple right renal cysts measuring up to 1.9 cm in size. Electronically signed by: Adeel De La Fuente MD 08/13/2024 07:59 AM EDT
[2024-08-11] MEDS: gadobutroL 10 ML VIAL IVPUSH (16:36)
== END 2024-08-11 15:18 | disposition home or self-care (01) ==
LOC: HO.MRI 15:17
PROVIDERS: Visit Provider Internal Medicine
DX: K86.2 Cyst of pancreas (principal)
CPT/HCPCS: 74183; A9585

== ENCOUNTER → 2024-08-11 15:48 | Outpatient (BNV) | payer MEDICARE, SELFPAY | PROVIDERS: Visit Provider Radiology Diagnostic Radiology | DX: K86.2 Cyst of pancreas (principal); N28.1 Cyst of kidney, acquired; Z90.5 Acquired absence of kidney | CPT/HCPCS: 74183 ==

== ENCOUNTER 2024-09-25 14:23 | Outpatient (REF) | payer MEDICARE, SELFPAY ==
--- NOTE | ~2024-09-25 | US_ITS ---
Examination: Ultrasound of the left leg TECHNIQUE: Ultrasound was performed using grayscale and color Doppler to evaluate the region of the palpable lump in the popliteal fossa of the left lower extremity. Prior: None FINDINGS: In the region of palpable lump, there is a heterogeneous iso to hyperechoic mass in the posterior distal thigh that measures 2.5 x 2.1 x 1.8 cm (CC by transverse by AP). It appears deep to the dermis and superficial to musculature. Color Doppler, central vascular flow is identified. US/US Extremity Nonvas Limited LT IMPRESSION: There is a solid vascularized mass in the posterior distal left thigh. The standard of care for evaluating musculoskeletal masses is MRI. Ultrasound can only determine if a mass is solid or cystic. Consider MRI of the knee without and with IV contrast for more definitive characterization. Electronically signed by: Simone Perez MD 09/25/2024 03:20 PM EDT
--- NOTE | ~2024-09-25 | US_ITS ---
EXAMINATION: US SOFT TISSUE HEAD, NONVASCULAR CLINICAL INFORMATION: Palpable nodular abnormality left parietal scalp. 69-year-old male. COMPARISON: None available. TECHNIQUE: Real-time grayscale and color Doppler ultrasound imaging of the left parietal scalp region was performed in the region as directed by the patient. FINDINGS: There is a subcutaneous likely dermal associated calcification in the left parietal scalp measuring 1.3 x 0.9 x 0.4 cm, correlating with the recent palpable concern. This is nonspecific although benign. There is no soft tissue mass, or fluid collection. US/US soft tiss head and/or neck IMPRESSION: Benign nonspecific calcification in the left parietal scalp measuring 1.3 x 0.9 x 0.4 cm. Electronically signed by: Cedric Moore MD 09/25/2024 03:37 PM EDT
--- OUTSIDE RECORDS SUMMARY | 2024-09-25 15:40 | XMS_ITS | Referral Summary ---
Author Organization [facility] Address [address] [place] [address] Care Team Providers Care Doubling Machine Operator Name Role Phone MattyCorona Primary Care Provider [phone] Allergies Active Allergy Reactions Criticality Noted Date [...] 83 08/01/2023 11:08 AM EDT Temperature 36.5 C (97.7 F) 06/20/2023 9:36 AM EDT Respiratory Rate 18 08/01/2023 11:08 AM EDT Oxygen Saturation 95% 08/01/2023 11:08 AM EDT Inhaled Oxygen Concentration - - Weight 155.6 kg (343 lb) 08/01/2023 11:08 AM EDT Height 182.9 cm (6') 08/01/2023 11:08 AM EDT Body Mass Index 46.52 08/01/2023 11:08 AM EDT Plan of Treatment Not on file Medical Devices Implanted Type Area Cloud Administrator Device Identifier Shelf Expiration Date Model / Serial / Lot System Closure And Repair Suture-Mediated Perclose Prostyle - [id number] Implanted:Qty: 1 on 05/25/2023 by Marvin Pack MD at [facility] Implant [employer] [id number] 02/10/2025 [id number] / [id number] Insurance [facility] MCR Advance Directives Documents on File Type Date Recorded Patient Press Clippings Cutter And Paster Expl anation Health Care Proxy 05/25/2023 12:33 PM Stephanie Will 03-1 * Full Code (Latest Code Status on File) Date Activated Date Inactivated Comments 05/24/2023 8:34 PM 05/30/2023 5:39 PM Healthcare Agents on File Name Relationship Healthcare Agent Relationshi p Communication Stephanie Perez Spouse Health Care Agent Care Teams Doubling Machine Operator Relationship Specialty Start Date End Date Corona Starr [address] [place] [address] [place] [address] PCP - General Internal Medicine 05/23/23
--- OUTSIDE RECORDS SUMMARY | 2024-09-25 15:40 | XMS_ITS | Patient Health Record ---
Author Organization [facility] Address [address] [place] [address] Care Team Providers Care Airplane Pilot Name Role Phone Bibiana Cho M.D. Primary Care Provider Unavail Miguelito Swan Jr [phone] Allergies Allergen (clinical drug ingredient) Drug/Non Drug Allergy documented on EMR Reaction Allergy Type Onset Date Status lisinopril Lisinopril Unknown Drug Allergy Activ e atorvastatin Lipitor Unknown Drug Allergy Acti ve Reason For Referral No Information Medications Medication SIG (Take, Route, Frequency, Duration) Notes Start Date End Date Status Furosemide 20 MG 1 tablet Orally Once a day Active Sertraline HCl 50 MG 1 tablet Orally Once a day Active Pantoprazole Sodium 40 MG 1 tablet Orally Once a day for 30 day(s) Active Vitamin D-3 25 MCG (1000 UT) 1 capsule Orally Once a day for 30 day(s) Active Atorvastatin Calcium 80 MG 1 tablet Orally Once a day Active Warfarin Sodium 5 MG 1 tablet Orally Once a day for 30 day(s) Tuesday & 1.5 tab Active Probiotic - as directed Orally Active Entresto 24-26 MG 1 tablet Orally Twice a day Active Farxiga 10 MG 1 tablet Orally Once a day Active Carvedilol 3.125 MG 1 tablet with food Orally Twice a day Active Immunizations Vaccine Route Administration Date Status Comme nts Influenza Unknown 12/30/2021 Administered Influenza Unknown 01/03/2024 Administered Social History Tobacco Use: Social History Observation Description Date Details (start date - stop date) Never Smoker NA - NA Tobacco Use/Smoking Question Answer Notes Patient is a nonsmoker AUDIT-C (Standard) Question Answer Notes Did you have a drink containing alcohol in the p ast year? No Points 0 Interpretation Negative Problems Problem Type SNOMED Code ICD Code Onset Dates Problem Status W/U Status Risk Notes Problem 635551952 Colon cancer screening (Z12.11) Active confirmed Problem 957462781 Bloating (R14.0) Active confirmed Problem Gastroesophageal reflux disease (584534516) Gastroesophageal reflux disease (K21.9) Active confirmed Problem Benign neoplasm of stomach (03543556) Gastric polyps (K31.7) Active confirmed Problem 334074213 Gastroesophageal reflux disease, unspecified whether esophagitis present (K21.9) Active confirmed Vital Signs Temperature 97.9 degrees Fahrenheit 09/19/2024 Blood pressure diastolic 01 mm Hg 09/19/2024 Height 73 in 09/19/2024 Blood pressure systolic 001 mm Hg 09/19/2024 Weight 253.2 lbs 09/19/2024 BMI 33.4 kg/m2 09/19/2024 Encounters Encounter Location Date Provider Diagnosis [facility] [address] [place] [address] 09/19/2024 Miguelito Banuelos Jr [facility] [address] [place] [address] 08/02/2024 Miguelito Banuelos Jr Plan Of Treatment Future Test Test Name Order Date UPPER GI ENDOSCOPY 04/14/2022 COLONOSCOPY 04/14/2022 Next Appt Details Provider Name:Miguelito kapadia Jr, 03/27/2025 09:00:00 AM, [address] [facility] [facility], [address], [place], [address], Insurance Providers Payer Name Payer Address Payer Phone Subscriber Number Group Number Insured Name Patient Relationship to Insured Coverage Start Date Coverage End Date MEDICARE OF [place] [address] 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
== END 2024-09-25 14:24 | disposition home or self-care (01) ==
LOC: HO.US 14:23
PROVIDERS: PCP Internal Medicine; Visit Provider Internal Medicine
DX: R22.0 Localized swelling, mass and lump, head (principal); R22.42 Localized swelling, mass and lump, left lower limb
CPT/HCPCS: 76536; 76882

== ENCOUNTER → 2024-09-25 14:26 | Outpatient (BNV) | payer MEDICARE, SELFPAY | PROVIDERS: PCP Internal Medicine; Visit Provider Radiology Diagnostic Radiology | DX: D23.4 Other benign neoplasm of skin of scalp and neck (principal) | CPT/HCPCS: 76536 ==

== ENCOUNTER 2024-09-26 10:49 | Outpatient (AMB) | payer MEDICARE, SELFPAY ==
--- NOTE | 2024-09-26 10:53 | MHC.OFFVIS ---
Intake Visit Reasons: Left shoulder pain and weakness Intake Note: Osman is a 69 year old right hand dominant male who presents with complaints of progressively worsening left shoulder pain and weakness. He also has intermittent discomfort in his right shoulder. He states that his right shoulder discomfort is tolerable to him. He describes his left shoulder pain as sharp in nature. Most of the pain is along the lateral aspect of his left shoulder. He states that he injured his left shoulder last year while performing cardiac rehab. He has done physical therapy exercises which aggravated his pain. He has also tried Tylenol and anti-inflammatory medicines which gave him minimal relief. He reports difficulty lifting his left hand above shoulder height. Allergies aspirin (ASPIRIN) Adverse Reaction (Unknown, Verified 07/26/24 14:15) PT STATES HE CAN'T TAKE BECAUSE HE IS ON COUMADIN lisinopril (LISINOPRIL) Adverse Reaction (Unknown, Verified 07/26/24 14:15) COUGH NSAIDS (Non-Steroidal Anti-Inflamma (NSAIDS (NON-STEROIDAL ANTI-INFLAMMA) Adverse Reaction (Unknown, Verified 07/26/24 14:15) PT STATES HE CAN'T TAKE BECAUSE HE IS ON COUMADIN sensitive to lisinopril Adverse Reaction (Mild, Uncoded 07/26/24 14:15) Cough can't take ASA or NSAIDS Adverse Reaction (Unknown, Uncoded 07/26/24 14:15) Unknown Medication List - Last Reconciled 09/26/24 by Mele Ureña MD amoxicillin 2,000 mg (4 x 500 mg) PO ONCE PRN apixaban (Eliquis) mg PO BID atorvastatin mg PO BEDTIME carvedilol mg PO BID cholecalciferol (vitamin D3) 50 mcg PO DAILY dapagliflozin propanediol (Farxiga) mg PO furosemide mg PO Q OTHER DAY pantoprazole 1 tab PO BID sacubitril-valsartan 24-26 mg (Entresto) tabs PO BID sertraline 50 mg PO ONCE tramadol 50 mg PO Q8H PRN PFSH Medical History Bleeding hemorrhoids Left hip pain Nocturia Hx of osteoarthritis History of hyperlipidemia Back pain Hx of atrial fibrillation without current medication Arrhythmia HTN (hypertension) Surgical History History of hip surgery Hx of laminectomy Hx of colonoscopy (~05/25/22) Family History Father No problems noted. Mother No problems noted. Social History Housing: House Alcohol intake: current Alcohol intake frequency: does not drink Patient Tobacco Use Status: Former Tobacco user Cigarette Packs Per Day: 1 Cigarettes Per Day: 20.0 Years Smoked: 34 service: No Current occupational status: retired Cognitive needs: No Hearing needs: No Vision needs: Yes (rx glasses) Physical Exam Const Other: Well-nourished well-developed very friendly male awake alert and oriented x3 in no acute distress Extrem Other: Left shoulder examination shows decreased range of motion when compared to his right shoulder, 4/5 strength with supraspinatus testing, positive impingement signs, tenderness over his acromioclavicular joint, no instability Results Reviewed Results Reviewed: X-rays of the patient's bilateral shoulder show severe acromioclavicular joint narrowing, type 2 acromion, no acute bony abnormalities Assessment & Plan Assessment & Plan (1) Rotator cuff insufficiency of left shoulder: Code(s): M25.312 - Other instability, left shoulder Category: Medical Plan Mr. Ayoub presents with left shoulder pain and weakness due to impingement syndrome and possible rotator cuff tearing. Thus, I will send the patient for an MRI of his left shoulder for further evaluation. I will see him back once the MRI is completed to discuss the findings and treatment options. Feel free to call me at any time should questions regarding his orthopedic management arise. Thank you very much for asking me to see this very friendly gentleman. I spent 21 minutes in reviewing the patient's records and imaging studies, seeing the patient and documenting in the medical record. Orders: Orders MR shoulder LT wo con 09/27/24 M25.312 - Other instability, left shoulder Coding Level of Care Code New Pt Level 3 (87344) Complex EM visit Add On G2211 Diagnoses Rotator cuff insufficiency of left shoulder M25.312
--- OUTSIDE RECORDS SUMMARY | 2024-09-26 11:34 | XMS_ITS | Referral Summary ---
Author Organization [facility] Address [address] [place] [address] Care Team Providers Care Ring Striker Name Role Phone MattyCorona Primary Care Provider [phone] Allergies Active Allergy Reactions Criticality Noted Date [...] on file Medical Devices Implanted Type Area Transfer Coordinator Device Identifier Shelf Expiration Date Model / Serial / Lot System Closure And Repair Suture-Mediated Perclose Prostyle - [id number] Implanted:Qty: 1 on 05/25/2023 by Marvin Pack MD at [facility] Implant [employer] [id number] 02/10/2025 [id number] / [id number] Insurance [employer] [facility] [facility] [employer] [facility] [facility] MCR Advance Directives Documents on File Type Date Recorded Patient Cleaning Machine Operator Expl anation Health Care Proxy 05/25/2023 12:33 PM Stephanie Will 03-1 * Full Code (Latest Code Status on File) Date Activated Date Inactivated Comments 05/24/2023 8:34 PM 05/30/2023 5:39 PM Healthcare Agents on File Name Relationship Healthcare Agent Relationshi p Communication Stephanie Perez Spouse Health Care Agent Care Teams Ring Striker Relationship Specialty Start Date End Date Corona Starr [address] [place] [address] [place] [address] PCP - General Internal Medicine 05/23/23
--- OUTSIDE RECORDS SUMMARY | 2024-09-26 11:34 | XMS_ITS | Patient Health Record ---
Author Organization [facility] Address [address] [place] [address] Care Team Providers Care Company Accountant Name Role Phone Bibiana Cho M.D. Primary Care Provider Unavail Miguelito Swan Jr [phone] Allergies Allergen (clinical drug ingredient) Drug/Non Drug [...] Problem Status W/U Status Risk Notes Problem 758296502 Colon cancer screening (Z12.11) Active confirmed Problem 152175812 Bloating (R14.0) Active confirmed Problem Gastroesophageal reflux disease (377616805) Gastroesophageal reflux disease (K21.9) Active confirmed Problem Benign neoplasm of stomach (29561096) Gastric polyps (K31.7) Active confirmed Problem 496168358 Gastroesophageal reflux disease, unspecified whether esophagitis present (K21.9) Active confirmed Vital Signs Temperature 97.9 degrees Fahrenheit 09/19/2024 Blood pressure diastolic 01 mm Hg 09/19/2024 Height 73 in 09/19/2024 Blood pressure systolic 001 mm Hg 09/19/2024 Weight 253.2 lbs 09/19/2024 BMI 33.4 kg/m2 09/19/2024 Encounters Encounter Location Date Provider Diagnosis [facility] [address] [place] [address] 09/19/[address] [facility] [address] [facility] [address] [place] [address] 08/02/2024 Miguelito Banuelos Jr Plan Of Treatment Future Test Test Name Order Date UPPER GI ENDOSCOPY 04/14/2022 COLONOSCOPY 04/14/2022 Next Appt Details Provider Name:Miguelito kapadia Jr, 03/27/2025 09:00:00 AM, [address] [facility], [address], [place], [address], Insurance Providers Payer Name Payer Address Payer Phone Subscriber Number Group Number Insured Name Patient Relationship to Insured Coverage Start Date Coverage End Date MEDICARE OF [place] [address] [place] [address] [phone] [id number] SANTINO LOS Self - patient is the insured [employer] ATTN CLAIMS [address] [place] [address] [phone] [id number] LOS DE Self - patient is the [...] cord biopsy Left hip arthroplasty Knee arthroplasties [phone] Hospitalization History Reason Date(Month/Year) please see above
== END 2024-09-26 11:08 | disposition home or self-care (01) ==
LOC: HO.HOS 10:49
PROVIDERS: PCP Internal Medicine; Visit Provider Orthopaedic Surgery
DX: M25.312 Other instability, left shoulder (principal)
CPT/HCPCS: 99203; G2211

== ENCOUNTER → 2024-09-26 10:49 | Outpatient (BNVA) | payer MEDICARE, SELFPAY | PROVIDERS: PCP Internal Medicine; Visit Provider Orthopaedic Surgery | DX: M25.312 Other instability, left shoulder (principal) | CPT/HCPCS: 99202 ==

== ENCOUNTER 2024-10-07 14:54 | Outpatient (REF) | payer MEDICARE, SELFPAY ==
--- NOTE | ~2024-10-07 | MR_ITS ---
CLINICAL HISTORY: M25.312 - Other instability, left shoulder MR left shoulder without gadolinium Comparison: None provided Findings: No acute fractures. No pathologic bone lesions. There are severe chronic degenerative changes at the acromioclavicular joint. Type II acromion. Fluid is seen within the subacromial subdeltoid bursa. There is a mild glenohumeral joint effusion. There is a full width, full-thickness tear of the supraspinatus tendon proximal to its insertion and associated with tendinosis. There is also tendinosis of the infraspinatus tendon. There is tendinosis/tendinitis of the long head of the biceps. There is also tenosynovitis and an interstitial tear. The labrum and biceps anchor are intact. IMPRESSION: 1. There is a full width, full-thickness tear of the supraspinatus tendon proximal to its insertion and associated with tendinosis. There is also tendinosis of the infraspinatus tendon. 2. Fluid is seen within the subacromial subdeltoid bursa. 3. There is tendinosis/tendinitis of the long head of the biceps. There is also tenosynovitis and an interstitial tear. 4. There are severe chronic degenerative changes at the acromioclavicular joint. This document has been electronically signed by: Jayesh Grover MD on 10/10/2024 08:42:04
--- OUTSIDE RECORDS SUMMARY | 2024-10-07 14:57 | XMS_ITS | Clinical Summary ---
Author Organization [facility] Address [address] [address] Phone Care Team Providers Care Interventional Technologist Name Role Phone Unavailable Primary Care Provider [...] 05/30/2003 ZOSTER VACCINES (1 of 2) 05/30/2003 COVID-19 VACCINE (2 - 2023-2 5 season) [...] age to complete this topic MENINGOCOCCAL VACCINES (B) Aged Out N o longer eligible based on patient's age to [...] It is not the complete legal health record.[facility]
--- OUTSIDE RECORDS SUMMARY | 2024-10-07 14:57 | XMS_ITS | Patient Health Record ---
Author Organization [facility] Address [address] [place] [address] Care Team Providers Care Cryptanalyst Name Role Phone Bibiana Cho M.D. Primary Care Provider Unavail Miguelito Swan Jr [phone] Allergies Allergen (clinical drug ingredient) Drug/Non Drug [...] Problem Status W/U Status Risk Notes Problem 674852252 Colon cancer screening (Z12.11) Active confirmed Problem 217831996 Bloating (R14.0) Active confirmed Problem Gastroesophageal reflux disease (922067721) Gastroesophageal reflux disease (K21.9) Active confirmed Problem Benign neoplasm of stomach (84439179) Gastric polyps (K31.7) Active confirmed Problem 939808940 Gastroesophageal reflux disease, unspecified whether esophagitis present (K21.9) Active confirmed Vital Signs Temperature 97.9 degrees Fahrenheit 09/19/2024 Blood pressure diastolic 01 mm Hg 09/19/2024 Height 73 in 09/19/2024 Blood pressure systolic 001 mm Hg 09/19/2024 Weight 253.2 lbs 09/19/2024 BMI 33.4 kg/m2 09/19/2024 Encounters Encounter Location Date Provider Diagnosis [facility] [address] [place] [address] 09/19/2024 Miguelito Banuelos Jr [facility] [address] [facility] [address] [address] [place] [address] 08/02/2024 Miguelito Banuelos Jr Plan Of Treatment Future Test Test Name Order Date UPPER GI ENDOSCOPY 04/14/2022 COLONOSCOPY 04/14/2022 Next Appt Details Provider Name:Miguelito kapadia Jr, 03/27/2025 09:00:00 AM, [address] [facility], [address], [place], [address], Insurance Providers Payer Name Payer Address Payer Phone Subscriber Number Group Number Insured Name Patient Relationship to Insured Coverage Start Date Coverage End Date MEDICARE OF [place] [address] [place] [address] [id number] SANTINO LOS Self - patient is the insured MED[employer] ATTN CLAIMS [address] [place] [address] [id number] LOS DE Self - patient is the [...] cord biopsy Left hip arthroplasty Knee arthroplasties [phone] Hospitalization History Reason Date(Month/Year) please see above
== END 2024-10-07 14:55 | disposition home or self-care (01) ==
LOC: HO.MRI 14:54
PROVIDERS: PCP Internal Medicine; Visit Provider Orthopaedic Surgery
DX: M25.312 Other instability, left shoulder (principal)
CPT/HCPCS: 73221

== ENCOUNTER 2024-10-11 09:28 | Outpatient (AMB) | payer MEDICARE, SELFPAY ==
--- NOTE | 2024-10-11 09:29 | MHC.OFFVIS ---
Vital Signs 10/11/24 09:33 Height 6 ft BP 117/88 Pulse 82 Pulse Oximetry (%) 98 Intake Visit Reasons: MRI review Intake Note: Osman is a 69 year old right hand dominant male who presents with complaints of progressively worsening left shoulder pain and weakness. He also has intermittent discomfort in his right shoulder. He states that his right shoulder discomfort is tolerable to him. He describes his left shoulder pain as sharp in nature. Most of the pain is along the lateral aspect of his left shoulder. He states that he injured his left shoulder last year while performing cardiac rehab. He has done physical therapy exercises which aggravated his pain. He has also tried Tylenol and anti-inflammatory medicines which gave him minimal relief. He reports difficulty lifting his left hand above shoulder height. Lead Software Development Engineer Required: No Allergies aspirin (ASPIRIN) Adverse Reaction (Unknown, Verified 10/11/24 09:32) PT STATES HE CAN'T TAKE BECAUSE HE IS ON COUMADIN lisinopril (LISINOPRIL) Adverse Reaction (Unknown, Verified 10/11/24 09:32) COUGH NSAIDS (Non-Steroidal Anti-Inflamma (NSAIDS (NON-STEROIDAL ANTI-INFLAMMA) Adverse Reaction (Unknown, Verified 10/11/24 09:32) PT STATES HE CAN'T TAKE BECAUSE HE IS ON COUMADIN sensitive to lisinopril Adverse Reaction (Mild, Uncoded 10/11/24 09:32) Cough can't take ASA or NSAIDS Adverse Reaction (Unknown, Uncoded 10/11/24 09:32) Unknown Medication List - Last Reconciled 10/11/24 by Kiara Mims RN amoxicillin 2,000 mg (4 x 500 mg) PO ONCE PRN apixaban (Eliquis) mg PO BID atorvastatin mg PO BEDTIME carvedilol mg PO BID cholecalciferol (vitamin D3) 50 mcg PO DAILY dapagliflozin propanediol (Farxiga) mg PO furosemide mg PO Q OTHER DAY pantoprazole 1 tab PO BID sacubitril-valsartan 24-26 mg (Entresto) tabs PO BID sertraline 50 mg PO ONCE tramadol 50 mg PO Q8H PRN PFSH Medical History Bleeding hemorrhoids Left hip pain Nocturia Hx of osteoarthritis History of hyperlipidemia Back pain Hx of atrial fibrillation without current medication Arrhythmia HTN (hypertension) Surgical History History of hip surgery Hx of laminectomy Hx of colonoscopy (~05/25/22) Family History Father No problems noted. Mother No problems noted. Social History Housing: House Alcohol intake: current Alcohol intake frequency: does not drink Patient Tobacco Use Status: Former Tobacco user Cigarette Packs Per Day: 1 Cigarettes Per Day: 20.0 Years Smoked: 34 service: No Current occupational status: retired Cognitive needs: No Hearing needs: No Vision needs: Yes (rx glasses) Physical Exam Vital Signs: Last Vital Signs Pulse 82 10/11/24 09:33 BP 117/88 10/11/24 09:33 Pulse Ox 98 10/11/24 09:33 Const Other: Well-nourished well-developed very friendly male awake alert and oriented x3 in no acute distress Extrem Other: Left shoulder examination shows decreased range of motion when compared to his right shoulder, 4/5 strength with supraspinatus testing, positive impingement signs, tenderness over his acromioclavicular joint, no instability Results Reviewed Results Reviewed: MRI of the patient's left shoulder show severe acromioclavicular joint narrowing, a type 2 acromion, a full-thickness supraspinatus tendon tear Assessment & Plan Assessment & Plan (1) Rotator cuff insufficiency of left shoulder: Code(s): M25.312 - Other instability, left shoulder Category: Medical Plan Mr. Perez presents with progressively worsening left shoulder pain and weakness due to impingement syndrome, acromioclavicular joint arthritis and a full-thickness rotator cuff tear. I had a lengthy discussion with the patient regarding the treatment options. At this point he has failed continued non operative treatments. The risks and benefits of left shoulder surgery were discussed at length with the patient. The patient is interested in proceeding with surgery later this year. He will contact my office to pick a surgery date when he chooses to do so. Surgery will involve left shoulder arthroscopic distal clavicle excision, left shoulder arthroscopic acromioplasty and left shoulder mini open rotator cuff repair. The patient will continue with his gentle [id number] exercises in the meantime. Feel free to call me at any time should questions regarding his orthopedic management arise. I spent 22 minutes in reviewing the patient's records and imaging studies, seeing the patient and documenting in the medical record. Coding Level of Care Code Est Pt Level 3 (78877) Complex EM visit Add On G2211 Diagnoses Rotator cuff insufficiency of left shoulder M25.312
[2024-10-11 09:33] VITALS: BP 117/88; PULSE 82; O2SAT 98
--- OUTSIDE RECORDS SUMMARY | 2024-10-11 09:48 | XMS_ITS | Patient Health Record ---
Author Organization [facility] Address [address] [place] [address] Care Team Providers Care Home Comfort Advisor Name Role Phone Bibiana Cho M.D. Primary Care Provider Unavail Miguelito Swan Jr Allergies Allergen (clinical drug ingredient) Drug/Non Drug [...] Problem Status W/U Status Risk Notes Problem [id number] Colon cancer screening (Z12.11) Active confirmed Problem 700247529 Bloating (R14.0) Active confirmed Problem Gastroesophageal reflux disease (240364339) Gastroesophageal reflux disease (K21.9) Active confirmed Problem Benign neoplasm of stomach (08599915) Gastric polyps (K31.7) Active confirmed Problem 860240795 Gastroesophageal reflux disease, unspecified whether esophagitis present (K21.9) Active confirmed Vital Signs Temperature 97.9 degrees Fahrenheit 09/19/2024 Blood pressure diastolic 01 mm Hg 09/19/2024 Height 73 in 09/19/2024 Blood pressure systolic 001 mm Hg 09/19/2024 Weight 253.2 lbs 09/19/2024 BMI 33.4 kg/m2 09/19/2024 Encounters Encounter Location Date Provider Diagnosis [facility] [address] [place] [address] 09/19/2024 Miguelito Banuelos Jr [facility] [address] [place] [address] 08/02/2024 Miguelito Banuelos Jr Plan Of Treatment Future Test Test Name Order Date UPPER GI ENDOSCOPY 04/14/2022 COLONOSCOPY 04/14/2022 Next Appt Details Provider Name:Miguelito kapadia Jr, 03/27/2025 09:00:00 AM, [address], [address], [place], [address], Insurance Providers Payer Name Payer Address Payer Phone Subscriber Number Group Number Insured Name Patient Relationship to Insured Coverage Start Date Coverage End Date MEDICARE OF [place] [address] [place] [address] [id number] SANTINO LOS Self - patient is the insured MEDEX ATTN CLAIMS [address] [place] [address] [id number] LOS DE Self - patient is the [...] cord biopsy Left hip arthroplasty Knee arthroplasties [id number] Hospitalization History Reason Date(Month/Year) please see above
--- OUTSIDE RECORDS SUMMARY | 2024-10-11 09:48 | XMS_ITS | Clinical Summary ---
Author Organization [facility] Address [address] [address] Phone Care Team Providers Care Hardware Assembler Name Role Phone Unavailable Primary Care Provider [...] It is not the complete legal health record.[facility]
--- OUTSIDE RECORDS SUMMARY | 2024-10-11 09:48 | XMS_ITS | Referral Summary ---
Author Organization [facility] Address [address] [place] [address] Care Team Providers Care Parking Lot Attendant Name Role Phone MattyCorona Primary Care Provider [phone] Allergies Active Allergy Reactions Criticality Noted Date [...] on file Medical Devices Implanted Type Area Parts Product Analyst Device Identifier Shelf Expiration Date Model / Serial / Lot System Closure And Repair Suture-Mediated Perclose Prostyle - [id number] Implanted:Qty: 1 on 05/25/2023 by Marvin Pack MD at [facility] Implant [employer] [id number] 02/10/2025 [id number] / [id number] Insurance [facility] Advance Directives Documents on File Type Date Recorded Patient Human Resources Manager Manufacturing Expl anation Health Care Proxy 05/25/2023 12:33 PM Stephanie Will 03-1 * Full Code (Latest Code Status on File) Date Activated Date Inactivated Comments 05/24/2023 8:34 PM 05/30/2023 5:39 PM Healthcare Agents on File Name Relationship Healthcare Agent Relationshi p Communication Stephanie Peerz Spouse Health Care Agent Care Teams Parking Lot Attendant Relationship Specialty Start Date End Date Corona Starr [address] [place] [address] [place] [address] PCP - General Internal Medicine 05/23/23
== END 2024-10-11 09:50 | disposition home or self-care (01) ==
LOC: HO.HOS 09:29
PROVIDERS: PCP Internal Medicine; Visit Provider Orthopaedic Surgery
DX: M25.312 Other instability, left shoulder (principal)
CPT/HCPCS: 99213; G2211

== ENCOUNTER → 2024-10-11 09:28 | Outpatient (BNVA) | payer MEDICARE, SELFPAY | PROVIDERS: PCP Internal Medicine; Visit Provider Orthopaedic Surgery | DX: M25.312 Other instability, left shoulder (principal) | CPT/HCPCS: 99212 ==

== ENCOUNTER → 2024-10-28 15:58 | Outpatient (BNV) | payer MEDICARE, SELFPAY | PROVIDERS: PCP Internal Medicine; Visit Provider Radiology Diagnostic Radiology | DX: M25.462 Effusion, left knee (principal); Z96.652 Presence of left artificial knee joint | CPT/HCPCS: 73721 ==

== ENCOUNTER 2024-10-28 16:04 | Outpatient (REF) | payer MEDICARE, SELFPAY ==
--- NOTE | ~2024-10-28 | MR_ITS ---
CLINICAL HISTORY: R22.42 - Localized swelling, mass and lump, left lower limb --- Additional Notes or Special Instructions: distal thigh mass see u s Exam: MRI of the left knee without intravenous contrast. Comparison: None provided. Findings: Patient has undergone prior left knee arthroplasty. Surgical hardware generates a large amount of metal artifact as expected. This obscures visualization of the majority of the structures about the knee. There is a marker placed at the patient's palpable abnormality. This is located along the superior aspect of the popliteal fossa. Within the posterior subcutaneous fat near the marker, there wispy areas of tubular increased T2 and inversion recovery signal intensity. This area abnormality measures 2.5 x 1.2 x 2.2 cm in size. No extension into the underlying musculature is seen. No adjacent areas of signal alteration are identified. No muscle edema or atrophy. Bones are osteopenic. No bone marrow signal alteration is identified given the caveat that the bony structures about the joint are poorly visualized. Moderate-sized knee joint effusion. Impression: 1. Wispy areas of tubular increased signal intensity within the subcutaneous fat along the posterior aspect of the distal thigh near the patient's palpable abnormality. The imaging characteristics most typical of avascular abnormality such as subcutaneous hemangioma or cluster of venous vessels. Findings are of low suspicion for neoplasm. Suggest dedicated ultrasound over this area for further evaluation. 2. Prior knee arthroplasty generates a large amount of metal artifact as expected precluding evaluation majority of the structures about the knee. 3. Moderate-sized knee joint effusion. This document has been electronically signed by: Gerard Obando MD on 10/29/2024 21:57:29
== END 2024-10-28 16:05 | disposition home or self-care (01) ==
LOC: HO.MRI 16:04
PROVIDERS: PCP Internal Medicine; Visit Provider Internal Medicine
DX: R22.42 Localized swelling, mass and lump, left lower limb (principal)
CPT/HCPCS: 73721

== ENCOUNTER 2024-10-29 08:58 | Outpatient (REF) | payer MEDICARE, SELFPAY ==
--- NOTE | ~2024-10-29 | US_ITS ---
EXAMINATION: Noninvasive assessment of the bilateral lower extremities with ARTERIAL DUPLEX, ANKLE BRACHIAL INDICES (ABIs), and PULSE VOLUME RECORDINGS (PVRs). CLINICAL INFORMATION: Status post bypass graft, right distal superficial femoral artery to the right posterior tibialis. 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 TECHNIQUE: Duplex Doppler techniques with waveform analysis and measurement of velocities in the bilateral common femoral, profunda femoris, superficial femoral, popliteal and tibial arteries were performed. Additionally, ankle pulse volume recordings, ankle pressure measurements and ankle brachial indices were obtained of the lower extremity arterial system bilaterally. The study was performed only at rest. COMPARISON: January 19, 2024, May 23, 2023 FINDINGS: Arrhythmia episodes. DIRECT DUPLEX DOPPLER FINDINGS: RIGHT LEG: Common femoral artery: 57 cm/s, phasicity: Triphasic. Profunda femoris artery: 39 cm/s, phasicity: Triphasic Superficial femoral artery (proximal): 61 cm/s, phasicity: Triphasic. Superficial femoral artery (mid): 56 cm/s, phasicity: Triphasic. Superficial femoral artery (distal): 34 cm/s, phasicity: Triphasic. Bypass graft. Popliteal artery: 128 cm/s, phasicity: Triphasic. Spectral broadening. Posterior tibial artery: 113 cm/s, phasicity: Triphasic. Spectral broadening. Peroneal artery: No color Doppler flow. Anterior tibial artery: 9 cm/s, phasicity: Biphasic. Dorsalis pedis artery: No color Doppler flow. Bypass graft: Inflow artery: Peak systolic velocity: 20 cm/s. Biphasic waveform. Proximal anastomosis: Peak systolic velocity: 28 cm/s. Triphasic waveform. Proximal bypass graft: Peak systolic velocity: 39 cm/s. Triphasic waveform. Mid bypass graft: Peak systolic velocity: 54 cm/s. Triphasic waveform. Distal bypass graft: Peak systolic velocity: 29 cm/s. Triphasic waveform. Distal anastomosis: Peak systolic velocity: 25 cm/s. Triphasic waveform. Outflow artery: Peak systolic velocity: 45 cm/s. Biphasic waveform. LEFT LEG: Common femoral artery: 59 cm/s, phasicity: Triphasic. Profunda femoris artery: 49 cm/s, phasicity: Triphasic. Superficial femoral artery (proximal): 53 cm/s, phasicity: Triphasic. Superficial femoral artery (mid): 61 cm/s, phasicity: Triphasic. Superficial femoral artery (distal): 34 cm/s, phasicity: Triphasic. Popliteal artery: 40 cm/s, phasicity: Triphasic. Posterior tibial artery: 47 cm/s, phasicity: Triphasic. Peroneal artery: 24 cm/s, phasicity: Biphasic. Anterior tibial artery: 47 cm/s, phasicity: Triphasic. Dorsalis pedis artery: 50 cm/s, phasicity: Triphasic. BRACHIAL PRESSURES: Right: 110 Left: 110 ANKLE PRESSURES: Right: PT 158, DP not detected. Left: PT more than 200, DP 162 ANKLE-BRACHIAL INDEX: Right: 1.44 Left: 1.47 ANKLE PVR WAVEFORMS: Right: Normal Left: Normal US/US arterial duplex BI w/ DANIEL IMPRESSION: Right leg: Patent bypass graft from the distal superficial femoral artery to the posterior tibialis. Occluded right dorsalis pedis artery, right peroneal artery. Left leg: Normal patency and waveforms. DANIEL Reference: - >1.4 = calcified vessels - 0.9 - 1.4 = normal - no significant arterial disease - 0.7 - 0.89 = mild peripheral arterial disease - 0.51 - 0.69 = moderate peripheral arterial disease - 0.50 = severe peripheral arterial disease - < .30 = critical arterial disease Electronically signed by: Marlon Anderson MD 10/29/2024 10:42 AM EDT
--- OUTSIDE RECORDS SUMMARY | 2024-10-29 09:27 | XMS_ITS | Patient Health Record ---
Author Organization [facility] Address [address] [place] [address] Care Team Providers Care Trust Vault Custodian Name Role Phone Bibiana Cho M.D. Primary Care Provider Unavail Miguelito Swan Jr [phone] Allergies Allergen (clinical drug ingredient) Drug/Non Drug [...] Problem Status W/U Status Risk Notes Problem [id number] Colon cancer screening (Z12.11) Active confirmed Problem 902230420 Bloating (R14.0) Active confirmed Problem Gastroesophageal reflux disease (K21.9) Active confirmed Problem Benign neoplasm of stomach (89490258) Gastric polyps (K31.7) Active confirmed Problem 181665123 Gastroesophageal reflux disease, unspecified whether esophagitis present (K21.9) Active confirmed Vital Signs Temperature 97.9 degrees Fahrenheit 09/19/2024 Blood pressure diastolic 01 mm Hg 09/19/2024 Height 73 in 09/19/2024 Blood pressure systolic 001 mm Hg 09/19/2024 Weight 253.2 lbs 09/19/2024 BMI 33.4 kg/m2 09/19/2024 Encounters Encounter Location Date Provider Diagnosis [facility] [address] [place] [address] 09/19/2024 Miguelito Banuelos Jr [facility] [address] [place] [address] 08/02/2024 Miguelito Banuelos Jr Plan Of Treatment Future Test Test Name Order Date UPPER GI ENDOSCOPY 04/14/2022 COLONOSCOPY 04/14/2022 Next Appt Details Provider Name:Miguelito kapadia Jr, 03/27/2025 09:00:00 AM, [address], [address], [place], [address], Insurance Providers Payer Name Payer Address Payer Phone Subscriber Number Group Number Insured Name Patient Relationship to Insured Coverage Start Date Coverage End Date MEDICARE OF [place] [address] [place] [address] [phone] [id number] LOS DE Self - patient is the insured MEDEX ATTN CLAIMS [address] [place] [address] [phone] [id number] LOS DE Self - patient is the [...] cord biopsy Left hip arthroplasty Knee arthroplasties [phone] Hospitalization History Reason Date(Month/Year) please see above
--- OUTSIDE RECORDS SUMMARY | 2024-10-29 09:27 | XMS_ITS | Clinical Summary ---
Author Organization [facility] Address [address] [address] Phone Care Team Providers Care Freight Traffic Consultant Name Role Phone Unavailable Primary Care Provider [...] It is not the complete legal health record.[facility]
--- OUTSIDE RECORDS SUMMARY | 2024-10-29 09:27 | XMS_ITS | Clinical Summary ---
Author Organization [facility] Address [address] [place] [address] Care Team Providers Care Import Export Coordinator Name Role Phone MattyCorona Primary Care Provider [phone] Allergies Active Allergy Reactions Criticality Noted Date [...] of Health Annual Screening 03/14/2024 Influenza Vaccine (#1) 2024 Hepatitis B Vaccines Aged Out No long er eligible based on patient's age to complete this topic Medical Devices Implanted Type Area Slitter Operator Device Identifier Shelf Expiration Date Model / Serial / Lot System Closure And Repair Suture-Mediated Perclose Prostyle - [id number] Implanted:Qty: 1 on 05/25/2023 by Marvin Pack MD at [facility] Implant [employer] [id number] 02/10/2025 [id number] / / [id number] Insurance [facility] Advance Directives Documents on File Type Date Recorded Patient Parking Enforcement Manager Expl anation Health Care Proxy 05/25/2023 12:33 PM Stephanie Perez - * Full Code (Latest Code Status on File) Date Activated Date Inactivated Comments 05/24/2023 8:34 PM 05/30/2023 5:39 PM Healthcare Agents on File Name Relationship Healthcare Agent Relationshi p Communication Stephanie Will Spouse Health Care Agent Care Teams Import Export Coordinator Relationship Specialty Start Date End Date Corona Starr [address] [place] [address] [place] [address] PCP - General Internal Medicine 05/23/23
== END 2024-10-29 08:59 | disposition home or self-care (01) ==
LOC: HO.US 08:58
PROVIDERS: PCP Internal Medicine; Visit Provider Surgery Vascular Surgery
DX: I73.9 Peripheral vascular disease, unspecified (principal)
CPT/HCPCS: 93922; 93925

== ENCOUNTER → 2024-10-29 09:00 | Outpatient (BNV) | payer MEDICARE, SELFPAY | PROVIDERS: PCP Internal Medicine; Visit Provider Radiology Diagnostic Radiology | DX: I70.92 Chronic total occlusion of artery of the extremities (principal); R22.42 Localized swelling, mass and lump, left lower limb; M25.462 Effusion, left knee; Z96.652 Presence of left artificial knee joint | CPT/HCPCS: 93922; 93925 ==

== ENCOUNTER 2024-11-13 09:51 | Outpatient (AMB) | payer MEDICARE, SELFPAY ==
--- NOTE | 2024-11-13 10:00 | MHC.OFFVIS ---
Intake Visit Reasons: follow up for discoloration/coldness in RLE Intake Note: Patient presents for follow up, had arterial US on 10/29/24. Foot is still discolored and numb, states it is both legs. Accompanied by: Spouse Allergies aspirin (ASPIRIN) Adverse Reaction (Unknown, Verified 11/13/24 10:02) PT STATES HE CAN'T TAKE BECAUSE HE IS ON COUMADIN lisinopril (LISINOPRIL) Adverse Reaction (Unknown, Verified 11/13/24 10:02) COUGH NSAIDS (Non-Steroidal Anti-Inflamma (NSAIDS (NON-STEROIDAL ANTI-INFLAMMA) Adverse Reaction (Unknown, Verified 11/13/24 10:02) PT STATES HE CAN'T TAKE BECAUSE HE IS ON COUMADIN sensitive to lisinopril Adverse Reaction (Mild, Uncoded 10/11/24 09:32) Cough can't take ASA or NSAIDS Adverse Reaction (Unknown, Uncoded 10/11/24 09:32) Unknown HPI HPI follow up for discoloration/coldness in RLE: Details: The patient is a 69-year-old male presenting with symptoms of coldness and discoloration in the feet. He reports numbness from the knees down, with the right foot appearing bluish and feeling cold, first noticed during nail care. Both feet are consistently cold, and there is difficulty palpating the dorsalis pedis pulse. The patient has a history of vascular surgery, with a bypass performed in May 2021, and follow-up care in March of the current year. He denies any history of diabetes and quit smoking 35 years ago. The patient is currently under the care of Bibiana Cho for primary care. The patient has been diagnosed with Raynaud's phenomenon, characterized by spasming of the vessels, particularly noticeable with temperature changes. This condition affects both feet and is exacerbated by transitions between warm and cold environments. Peripheral neuropathy is also present, likely related to past back surgery and possibly contributing to decreased sensitivity in the feet. The patient is on Convore for kidney and heart health, with a history of back surgery. [facility] Medical History Bleeding hemorrhoids Left hip pain Nocturia Hx of osteoarthritis History of hyperlipidemia Back pain Hx of atrial fibrillation without current medication Arrhythmia HTN (hypertension) Surgical History History of hip surgery Hx of laminectomy Hx of colonoscopy (~05/25/22) Family History Father No problems noted. Mother No problems noted. Social History Housing: House Alcohol intake: current Alcohol intake frequency: does not drink Patient Tobacco Use Status: Former Tobacco user Cigarette Packs Per Day: 1 Cigarettes Per Day: 20.0 Years Smoked: 34 service: No Current occupational status: retired Cognitive needs: No Hearing needs: No Vision needs: Yes (rx glasses) Review of Systems Const All systems reviewed & are unremarkable except as noted in HPI and below Reports no additional complaints ENT Reports Normal hearing present Card Denies chest pain, Denies chest pain at rest, Denies chest pain with activity and Denies pedal edema Resp Denies cough GI Denies abdominal pain Musc Denies abnormal gait, Denies muscle cramps and Denies radiating pain into limb Skin/Breast Denies skin ulcer and Denies wounds Neuro Reports Normal hearing present and Denies abnormal gait Psych Reports no additional complaints Physical Exam Const General: cooperative, healthy appearing and comfortable Orientation/consciousness: oriented to person, oriented to place and oriented to time HEENT Head: Yes normal to inspection Neck Neck: Yes normal visual inspection Carotids: no bruits Chest Chest palpation & inspection: normal inspection of the chest Resp Effort & Inspection: normal respiratory effort and able to speak in complete sentences Auscultation: clear to auscultation bilaterally, no crackles, no rales, no rhonchi and no wheezes Cardio Other: Right side palpable posterior tibial, left side palpable dorsalis pedis pulse. Rate: regular rate Rhythm: regular rhythm Heart sounds: S1 normal heart sound present and S2 normal heart sound present Bruits: no carotid bruits Peripheral pulses: Peripheral pulses 2+ throughout GI Inspection: Yes normal to inspection Skin Wounds: no wounds Hair: normal Neuro General: oriented to person, oriented to place and oriented to time Cranial nerves: Yes CN's II-XII intact bilaterally and Yes Normal hearing present Cognition (Neuro): normal cognition Motor exam (neuro): 5/5 motor strength present throughout Extrem Other: venous exam: No significant superficial varicosities or spider telangiectasias, minimal edema General: No clubbing, No cyanosis and No edema Psych Appearance: grossly normal Mental Status: mental status grossly normal Speech and movement: Normal speech and movement present Results Reviewed Results Reviewed: Noninvasive testing dated 10/29/2024 demonstrates good flow bilaterally patent bypass graft with DANIEL on the right of 1.44 and on the left of 1.47. Written report and images were reviewed. Assessment & Plan Assessment & Plan (1) PAD (peripheral artery disease): Code(s): I73.9 - Peripheral vascular disease, unspecified Category: Medical Plan: In short patient has stable claudication. His bypass is patent. I did review the pathophysiology of peripheral vascular disease with the patient. In addition we did discuss routine conservative measures including a healthy diet and the importance of exercise and ambulation. We did discuss risk factor modification. The patient will continue to to follow-up with surveillance follow-up in approximately 1 year. Thank you for allowing us to participate in this patient's care. If there are any questions or concerns please do not hesitate to contact us. (2) Raynauds disease: Code(s): I73.00 - Raynaud's syndrome without gangrene Category: Medical Plan: There was concern about toe discoloration. I do feel that he may have an element of Raynaud's disease. I have discussed the pathophysiology with the patient, inclusive of spasming of the vessels and change in color of digits from white, red, and blue. We have discussed prevention inclusive of protection hand and feet at all times, reduction of caffeine intake, and reduction of stressors. I do feel that this is very mild and the patient was educated on the above. We will continue to monitor his arterial status. Thank you for allowing us to assist in his care. Orders: Orders US arterial duplex LE 1 Year I73.9 - Peripheral vascular disease, unspecified Coding Level of Care Code Est Pt Level 4 (97467) Diagnoses PAD (peripheral artery disease) I73.9 Raynauds disease I73.00
--- OUTSIDE RECORDS SUMMARY | 2024-11-13 11:04 | XMS_ITS | Patient Health Record ---
Author Organization [facility] Address [address] [place] [address] Care Team Providers Care Plasma Cutting Machine Operator Name Role Phone Bibiana Cho M.D. Primary Care Provider Unavail Miguelito Swan Jr [phone] Allergies Allergen (clinical drug ingredient) Drug/Non Drug Allergy documented on EMR Reaction Allergy Type Onset Date Status lisinopril Lisinopril Unknown Drug Allergy Activ e atorvastatin Lipitor Unknown Drug Allergy Acti ve Reason For Referral No Information Medications Medication SIG (Take, Route, Frequency, Duration) Notes Start Date End Date Status Vitamin D-3 25 MCG (1000 UT) 1 capsule Orally Once a day for 30 day(s) Active Atorvastatin Calcium 80 MG 1 tablet Oral ly Once a day Active Carvedilol 3.125 MG 1 tablet with food O rally Twice a day Active Entresto 24-26 MG 1 tablet Orally Twic e a day Active Pantoprazole Sodium 40 MG 1 tablet Orall y Once a day for 30 day(s) Active Probiotic - as directed Orally Active Farxiga 10 MG 1 tablet Orally Once a day Active Furosemide 20 MG 1 tablet Orally Once a day Active Sertraline HCl 50 MG 1 tablet Orally Onc e a day Active Eliquis 5 MG as directed Orally Active Immunizations Vaccine Route Administration Date Status [...] Problem Status W/U Status Risk Notes Problem [id number] Colon cancer screening (Z12.11) Active confirmed Problem 880966236 Bloating (R14.0) Active confirmed Problem Gastroesophageal reflux disease (540408732) Gastroesophageal reflux disease (K21.9) Active confirmed Problem Benign neoplasm of stomach (71104741) Gastric polyps (K31.7) Active confirmed Problem Pancreatic cyst (44151720) Pancreatic cyst (K86.2) Active confirmed Vital Signs Temperature 97.9 degrees Fahrenheit 09/19/2024 Blood pressure diastolic 01 mm Hg 09/19/2024 Height 73 in 09/19/2024 Blood pressure systolic 001 mm Hg 09/19/2024 Weight 253.2 lbs 09/19/2024 BMI 33.4 kg/m2 09/19/2024 Encounters Encounter Location Date Provider Diagnosis [facility] [address] [place] [address] 09/19/2024 Miguelito Banuelos Jr Gastroesophageal reflux disease K21.9 ; Colon cancer screening Z12.11 and Pancreatic cyst K86.2 [facility] [address] [place] [address] 08/02/2024 Miguelito Banuelos Jr Assessments Encounter Date Diagnosis (ICD Code) Assessment Notes Treatment Notes Treatment Clinical Notes Section Notes 09/19/2024 Colon cancer screening (ICD-10 - Z12.11) At this time, Los is doing very well for his GI issues despite his other multiple medical problems. We recommended he continue pantoprazole 40 mg daily. He can use simethicone for bloating and gas. He is up-to-date on colorectal cancer screening. His pancreatic cyst will be monitored with MRI imaging in 1 year. We discussed gastroesophageal reflux disease in detail including diet, lifestyle modifications, and weight management. He will continue these measures. Follow-up in 6 to 12 months. 09/19/2024 Gastroesophageal reflux disease (ICD-10 - K21.9) At this time, Los is doing very well for his GI issues despite his other multiple medical problems. We recommended he continue pantoprazole 40 mg daily. He can use simethicone for bloating and gas. He is up-to-date on colorectal cancer screening. His pancreatic cyst will be monitored with MRI imaging in 1 year. We discussed gastroesophageal reflux disease in detail including diet, lifestyle modifications, and weight management. He will continue these measures. Follow-up in 6 to 12 months. 09/19/2024 Pancreatic cyst (ICD-10 - K86.2) At this time, Los is doing very well for his GI issues despite his other multiple medical problems. We recommended he continue pantoprazole 40 mg daily. He can use simethicone for bloating and gas. He is up-to-date on colorectal cancer screening. His pancreatic cyst will be monitored with MRI imaging in 1 year. We discussed gastroesophageal reflux disease in detail including diet, lifestyle modifications, and weight management. He will continue these measures. Follow-up in 6 to 12 months. Plan Of Treatment Future Test Test Name Order Date UPPER GI ENDOSCOPY 04/14/2022 COLONOSCOPY 04/14/2022 Next Appt Details Provider Name:Miguelitokurt kapadia Jr, 03/27/2025 09:00:00 AM, [address] [place] [address], [address], [place], [address], Insurance Providers Payer Name Payer Address Payer Phone Subscriber Number Group Number Insured Name Patient Relationship to Insured Coverage Start Date Coverage End Date MEDICARE OF [place] [address] [place] [address] [id number] [place] Self - patient is the insured [employer] ATT[employer] CLAIMS [address] [place] [address] [phone] [id number] [place] Self - patient is the insured Medical (General) History Medical History History ICD Code Hypertension Atrial fibrillation Colonoscopy , nonspecific ileitis, dimunitive rectal tubular adenoma Elevated cholesterol Osteoarthritis Back pain Nocturia Elevated BMI peripheral neuropathy peripheral artery disease Coronary artery disease with history of [place] Colonoscopy 06/03, small tubular adenoma, 7-year follow-up Gastroesophageal reflux dise ase, EGD 06/03, no H. 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
--- OUTSIDE RECORDS SUMMARY | 2024-11-13 11:04 | XMS_ITS | Clinical Summary ---
Author Organization [facility] Address [address] [address] Phone Care Team Providers Care Transportation Planner Name Role Phone Unavailable Primary Care Provider [...] (1 of 2) 05/30/2003 INFLUENZA VACCINE (#1) 2024 COVID-19 VACCINE (2 - 2024-2 6 season) 2024 07/06/2020 RSV VACCINE (1 - 1-dose 75+ [...] It is not the complete legal health record.[facility]
--- OUTSIDE RECORDS SUMMARY | 2024-11-13 11:04 | XMS_ITS | Clinical Summary ---
Author Organization [facility] Address [address] [place] [address] Care Team Providers Care Technical Education Teacher Name Role Phone Matty[place] Primary Care Provider [phone] Allergies Active Allergy Reactions Criticality Noted Date [...] this topic Medical Devices Implanted Type Area Wedger And Gluer Device Identifier Shelf Expiration Date Model / Serial / Lot System Closure And Repair Suture-Mediated Perclose Prostyle - [id number] Implanted:Qty: 1 on 05/25/2023 by Marvin Pack MD at [facility] Implant [employer] [id number] 02/10/2025 [id number] / / [id number] Insurance [facility] Advance Directives Documents on File Type Date Recorded Patient Drilling Fluids Specialist Expl anation Health Care Proxy 05/25/2023 12:33 PM Stephanie Perez - * Full Code (Latest Code Status on File) Date Activated Date Inactivated Comments 05/24/2023 8:34 PM 05/30/2023 5:39 PM Healthcare Agents on File Name Relationship Healthcare Agent Relationshi p Communication Stephanie Will Spouse Health Care Agent Care Teams Technical Education Teacher Relationship Specialty Start Date End Date Corona Starr [address] [place] [address] [place] [address] PCP - General Internal Medicine 05/23/23
== END 2024-11-13 10:26 | disposition home or self-care (01) ==
LOC: HO.HVS 09:51
PROVIDERS: PCP Internal Medicine; Visit Provider Surgery Vascular Surgery
DX: I73.9 Peripheral vascular disease, unspecified (principal); I73.00 Raynaud's syndrome without gangrene
CPT/HCPCS: 99214

== ENCOUNTER → 2024-11-13 09:51 | Outpatient (BNVA) | payer MEDICARE, SELFPAY | PROVIDERS: PCP Internal Medicine; Visit Provider Surgery Vascular Surgery | DX: I73.9 Peripheral vascular disease, unspecified (principal); I73.00 Raynaud's syndrome without gangrene | CPT/HCPCS: 99212 ==